=== PATIENT | male | born 1970 | race Two or more races ===

== ENCOUNTER 2018-04-10 16:19 | Inpatient (IN) | payer OTHER ==
[~2018-04-10] VITALS: Ht 172.7 cm; Wt 95.4 kg
[2018-04-10] MEDS ORDERED: VANCOMYCIN IV 1,000 MG in IV DEXTROSE 5% 250 ML IV ONE (18:00)
[2018-04-10] MEDS ORDERED: IV NORMAL SALINE 1000 ML BAG IV ONE (18:00)
[2018-04-10] MEDS ORDERED: PIPERACILLIN SODIUM/TAZOBACTAM 3.375 G in IV DEXTROSE 5% 50 ML IV ONE (18:00)
[2018-04-10 18:33] LABS: BASOPHILS % (AUTO) 0.2 % (0.0-2.0); EOSINOPHILS # (AUTO) 0.1 K/uL (0.0-0.7); EOSINOPHILS % (AUTO) 0.5 % (0.0-7.0); HEMATOCRIT 24.9 % (36.7-47.1); HEMOGLOBIN 8.5 g/dL (12.5-16.3); LYMPHOCYTES # (AUTO) 1.1 K/uL (20.0-40.0); LYMPHOCYTES % (AUTO) 7.5 % (20.5-51.5); MEAN CORPUSCULAR HGB CONC 34 g/dL (32.5-36.3); MEAN CORPUSCULAR VOLUME 85.3 fL (73.0-96.2); MONOCYTES % (AUTO) 6.9 % (0.0-11.0); NEUTROPHILS # (AUTO) 12.5 K/uL (1.8-8.9); NEUTROPHILS % (AUTO) 84.9 % (38.5-71.5); PLATELET COUNT (AUTO) 319 K/uL (152-348); RED BLOOD CELL COUNT(AUTO) 2.92 MIL/uL (4.06-5.63); WHITE BLOOD COUNT (AUTO) 14.7 K/uL (3.6-10.2)
[2018-04-10 18:58] LABS: CREATININE 2.1 mg/dL (0.6-1.3); POTASSIUM 4.3 mmol/L (3.5-5.1)
[2018-04-10 18:59] LABS: BILIRUBIN,DIRECT 0.1 mg/dL (0.0-0.2); BILIRUBIN,TOTAL 0.4 mg/dL (0.2-1.0)
[2018-04-10] MEDS ORDERED: INSULIN REGULAR, HUMAN 100 UNIT in IV NORMAL SALINE 100 ML IV ONE ×2 (19:15)
[2018-04-10] MEDS ORDERED: INSULIN REGULAR, HUMAN 300 UNIT/3 ML VIAL IV ONE (19:15)
[2018-04-10] MEDS ORDERED: PIPERACILLIN/TAZOBACTAM/D5W 50 ML IV ONE (19:22)
[2018-04-10] MEDS ORDERED: INSULIN REGULAR, HUMAN 300 UNIT/3 ML VIAL ONE (19:33)
[2018-04-10] MEDS ORDERED: VANCOMYCIN IV 200 ML ONE (20:22)
--- NOTE | 2018-04-10 21:03 | NUR ---
Re-checked sugar 158. D/C insulin drip per JEREMY PATINO.
--- NOTE | 2018-04-10 21:05 | NUR ---
Per CCU nurse, pt received order from Dr. Clyde Graham to Admit pt to Telemetry.
--- NOTE | 2018-04-10 21:53 | NUR ---
Pt. admitted to Telemetry, under care of Dr. Clyde Graham. Diagnosis: Uncontrolled Diabetes, Cellulitis Belongs List completed. MRSA swab done. Report given to floor nurse
--- NOTE | 2018-04-10 22:45 | NUR ---
[facility] UNDER THE CARE OF DR. GOLDSTEIN. DX:UNCONTROLLED DIABETES/CELLULITIS.TELEMETRY SHOWING SINUS RYTHYM.BELONGING LIST DONE. PT SHOWS NO SIGNS OF ACUTE DISTRESS.ADMISSION PROCESS AND CARE PLAN INITIATED. [facility] ASSESSMENT DONE. PT CONFUSE. CALL LIGHT WITHIN REACH. SAFETY AND COMFORT PROVIDED. WILL CONTINUE TO MONITOR.
[2018-04-10] MEDS ORDERED: ONDANSETRON 4 MG/2 ML VIAL IV PRN (23:30)
[2018-04-10] MEDS ORDERED: ACETAMINOPHEN 325 MG TABLET PO PRN (23:30)
[2018-04-10] MEDS ORDERED: DEXTROSE 50% 50 ML DISP.SYRIN IV PRN (23:30)
[2018-04-10] MEDS ORDERED: PIPERACILLIN/TAZOBACTAM/D5W 2.25 G in PREMIXED 1 EACH IV SCH (23:30)
[2018-04-10] MEDS ORDERED: HYDROCODONE/APAP 5-325MG TABLET PO PRN (23:30)
[2018-04-11] VITALS (7 sets, daily range): BP systolic 132–164; BP diastolic 64–88
[2018-04-11] MEDS: IV 1/2NS 1000 ML 1,000 ML IV PRN (00:03)
[2018-04-11] MEDS ORDERED: PIPERACILLIN/TAZOBACTAM/D5W 3.375 G in PREMIXED 1 EACH IV SCH (01:00)
[2018-04-11] MEDS ORDERED: PIPERACILLIN SODIUM/TAZO 3.375 GM VIAL ONE (01:35)
[2018-04-11] MEDS: ACIDOPHILUS/BULGARICUS CHEW TAB PO SCH ×3 (05:58→21:06)
--- NOTE | 2018-04-11 06:33 | NUR ---
PT SLEPT INTERMITTENTLY. PT SHOWS NO SIGNS OF ACUTE DISTRESS. IV INTACT AND PATENT. PRESCRIBED MEDICATION GIVEN AND PT TOLERATED IT WELL. PT GET OUT OF THE BED AND WANTS TO GO TO THE BATHROOM IMMEDIATELY ON HIS OWN BUT NEED ASSISTANCE. FALL RISK PREVENTION DONE. 1:1 SITTER NEEDED.PT WILL SCREAM AND TALK TO HIMSELF. PSYCH CONSULT NEEDED AND WILL ENDORSE TO DAYSHIFT NURSE. PT CONFUSE. CHARGE NURSE AWARE. SAFETY AND COMFORT PROVIDED. WILL ENDORSE TO INCOMING NURSE FOR CONTINUITY OF CARE.
[2018-04-11 06:36] LABS: BASOPHILS % (AUTO) 0.2 % (0.0-2.0); EOSINOPHILS # (AUTO) 0.1 K/uL (0.0-0.7); EOSINOPHILS % (AUTO) 1.1 % (0.0-7.0); HEMATOCRIT 25.1 % (36.7-47.1); HEMOGLOBIN 8.7 g/dL (12.5-16.3); LYMPHOCYTES # (AUTO) 1.5 K/uL (20.0-40.0); LYMPHOCYTES % (AUTO) 11.2 % (20.5-51.5); MEAN CORPUSCULAR HEMOGLOBIN 29.1 uug (23.8-33.4); MEAN CORPUSCULAR HGB CONC 35 g/dL (32.5-36.3); MEAN CORPUSCULAR VOLUME 83.8 fL (73.0-96.2); MONOCYTES # (AUTO) 1.2 K/uL (2.0-10.0); MONOCYTES % (AUTO) 9.2 % (0.0-11.0); NEUTROPHILS # (AUTO) 10.3 K/uL (1.8-8.9); NEUTROPHILS % (AUTO) 78.3 % (38.5-71.5); PLATELET COUNT (AUTO) 318 K/uL (152-348); RED BLOOD CELL COUNT(AUTO) 2.99 MIL/uL (4.06-5.63); WHITE BLOOD COUNT (AUTO) 13.1 K/uL (3.6-10.2)
[2018-04-11] MEDS: BLOOD SUGAR DIAGNOSTIC 1 EACH STRIP VI SCH ×4 (06:39→20:38)
[2018-04-11 06:48] LABS: BILIRUBIN,TOTAL 0.5 mg/dL (0.2-1.0); CREATININE 1.9 mg/dL (0.6-1.3); MAGNESIUM 1.4 mg/dL (1.8-2.4); PHOSPHOROUS 2.5 mg/dL (2.5-4.9); POTASSIUM 4.2 mmol/L (3.5-5.1); TOTAL PROTEIN, SERUM 5.9 g/dL (6.4-8.2)
[2018-04-11] MEDS: INSULIN REGULAR, HUMAN 300 UNIT/3 ML VIAL SQ PRN ×3 (07:46→16:22)
[2018-04-11] MEDS: GLIMEPIRIDE 2 MG TABLET PO SCH (08:01)
[2018-04-11] MEDS ORDERED: FAMOTIDINE 20 MG TABLET PO SCH ×2 (09:00)
[2018-04-11] MEDS ORDERED: PIPERACILLIN/TAZOBACTAM/D5W 2.25 G in PREMIXED 1 EACH IV SCH (09:00)
[2018-04-11] MEDS ORDERED: VANCOMYCIN IV 1,500 MG in IV DEXTROSE 5% 500 ML IV ONE (09:00)
--- NOTE | 2018-04-11 09:05 | NUR ---
PATIENT IS AWAKE CONFUSED AND DISORIENTED TALKING TO SELF AND TO THE WALL AND RESPONDING TO OTHERS THAT ARE NOT PRESENT BAT PERSON CLEMENTINE HIS PROVIDER NOTIFIED STATED THAT SHE WILL ORDER PSYCH CONSULT FOR HIM CALLED THE [facility] STATED THAT I SHOULD CALL DR MORIN MYSELF SO I PAGED HIM AWAITING FOR CALL BACK
--- NOTE | 2018-04-11 11:02 | NUR ---
PATIENT IS CONFUSED AND DISORIENTED AND UNABLE TO VERBALISE TO ME IF HE IS ON ANY HOME MEDICATIONS CHECKED THE PATIENTS CHART INCLUDING THE ED REPORT BUT NO PAPERS AND NO MENTION OF WHERE PATIENT CAME FROM SO I ASKED THE PROJECT DEVELOPMENT LEADER STATED THAT SHE DOES NOT KNOW EITHER BUT WILL TRY TO RESEARCH AND WILL NOTIFY ME WHEN SHE DOES.
--- NOTE | 2018-04-11 12:04 | NUR ---
NEW ORDER NOTED TO DISCONTINUE TELEMETRY AND NOTED
--- NOTE | 2018-04-11 12:29 | NUR ---
WOUND CARE CONSULT: PT PRESENTS WITH MOIST NECROTIC TISSUE TO FOOT, PRESENT ON ADMISSION. LEFT BELOW KNEE AMP STUMP NOTED. PT MOVES IN BED INDEPENDENTLY. PT CONTINENT AT THIS TIME. DPM HERE TO SEE PT. DEFER TO DPM. WILL SEE PRN. Addendum: 04/11/18 at 1230 by YOVANI KIM RN Amended: Links added.
[2018-04-11] MEDS: MAGNESIUM SULFATE/D5W 100 ML IV SCH ×2 (12:40→14:36)
--- NOTE | 2018-04-11 13:15 | NUR ---
Clinical Pharmacy Note: Vancomycin Dosing per Pharmacy Subjective: Vancomycin IV to start on this 47 yo male patient for cellulitis. Objective: BUN 29/Scr 1.9 WBC 13.1 Temperature 98 Vanco random level with am labs: 10.1 Assessment/Plan: Patient received vanco 1gm IVPB x1 on 04/10 at 2029 in ED. Since vanco random level is below 15 & srcr is still elevated, will give vanco 1500mg IVPB x1 today at 0900 & re-check vanco random level in am with am labs for further dosing. When srcr is stable will consider routine dosing. Will follow daily.
--- NOTE | 2018-04-11 13:28 | NUR ---
DR HARTMAN HERE TO SEE PATIENT AND WANTS TO DO DEBRIDEMENT ON THE RIGHT FOOT HE STATED THAT PATIENT IS ALERT AND TALKING TO HIM IN LITHUANIAN AND HE THINKS THAT THE PATIENT CAN SIGN OWN CONSCENT BUT GOLDIE SPRING HERE AND SHE SIGNED FOR HIM AND WITHNESSED BY ME PATIENT ALSO SIGNED HIS NAME AFTER DR HARTMAN SPOKE TO HIM. STATED WILL RETURN THIS AFTERNOON TO DO THE DEBRIDEMENT.
--- NOTE | 2018-04-11 14:04 | NUR ---
ASSIGNMENT REARRANGED REPORT RECEIVED FROM MACARENA RENEE THE CARE
--- NOTE | 2018-04-11 14:04 | NUR ---
ASSIGNMENT REARRANGED REPORT GIVEN TO THE NEXT RN FOR CONTINUING CARE AT THIS TIME.
[2018-04-11] MEDS: PIPERACILLIN/TAZOBACTAM/D5W 50 ML IV SCH ×2 (15:47→20:24)
--- NOTE | 2018-04-11 17:54 | NUR ---
END OF SHIFT PATIENT IS AWAKE CONFUSED AND DISORIENTED , LAUGHING TIMES TO TIME, COOPERATIVE WITH TREATMENT SAFETY REINFORCED, SITTER AT BEDSIDE
--- NOTE | 2018-04-11 19:20 | NUR ---
RECEIVED PT AWAKE , ALERT, AND ORIENTEDX2. PT SHOWS NO SIGNS OF ACUTE DISTRESS. IV INTACT AND INFUSING WELL. SITTER AT BEDSIDE FOR SAFETY. PT DISORIENTED. LAUGHING FROM TIME TO TIME AND TALKING TO HIMSELF.CALL LIGHT WITHIN REACH. BEDALARM ON. SAFETY AND COMFORT PROVIDED. WILL CONTINUE TO MONITOR.
[2018-04-11] MEDS: FAMOTIDINE 20 MG TABLET PO SCH (20:25)
[2018-04-11] MEDS: DOCUSATE SODIUM 100 MG CAPSULE PO SCH (20:25)
[2018-04-11] MEDS: INSULIN REGULAR, HUMAN 300 UNITS/3 ML VIAL SQ PRN (21:08)
[2018-04-11 22:44] LABS: *BILIRUBIN,URIN NEGATIVE (NEGATIVE); *BLOOD, URINE Trace-lysed (NEGATIVE); *CLARITY,URINE CLEAR (CLEAR); *COLOR,URINE YELLOW (YELLOW); *KETONES,URINE NEGATIVE (NEGATIVE); *UROBILINOGEN,URINE 0.2 E.U./dl (NORMAL); LEUKOCYTE ESTERASE ,URINE NEGATIVE (NEGATIVE); NITRITE, URINE NEGATIVE (NEGATIVE); PH,URINE 5.5 (5.0-8.0)
[2018-04-11 22:45] LABS: UGLUCOSE 2+ (NEGATIVE)
[2018-04-11 22:50] LABS: BACTERIA,URINE FEW /HPF (NONE SEEN); SQUAMOUS EPITHELIAL CELL,UR FEW /HPF (NONE SEEN); URINE AMORPHOUS URATE MODERATE /HPF; WBC,URINE 0-3 /HPF (0-3)
[2018-04-12 04:00] VITALS: BP 159/86
[2018-04-12] MEDS: IV 1/2NS 1000 ML 1,000 ML IV PRN (04:17)
[2018-04-12] MEDS: PIPERACILLIN/TAZOBACTAM/D5W 50 ML IV SCH ×4 (04:17→20:15)
[2018-04-12 05:25] VITALS: BP 139/88
[2018-04-12] MEDS: ACIDOPHILUS/BULGARICUS CHEW TAB PO SCH ×3 (05:36→21:48)
[2018-04-12] MEDS: BLOOD SUGAR DIAGNOSTIC 1 EACH STRIP VI SCH ×4 (06:38→20:21)
--- NOTE | 2018-04-12 06:39 | NUR ---
PT SLEPT INTERMITTENTLY. PT SHOWS NO SIGNS OF ACUTE DISTRESS. SITTER AT BEDSIDE FOR SAFETY. IV INTACT. PRESCRIBED MEDICATION GIVEN AND PT TOLERATED IT WELL. PT CONFUSED AND DISORIENTED. NEED REORIENTATION. CALL LIGHT WITHIN REACH. SAFETY AND COMFORT PROVIDED. ALL NEEDS ARE MET. WILL ENDORSE ACCORDINGLY TO INCOMING NURSE FOR CONTINUITY OF CARE.
[2018-04-12 07:45] VITALS: BP 180/91
[2018-04-12] MEDS: INSULIN REGULAR, HUMAN 300 UNIT/3 ML VIAL SQ PRN ×3 (07:55→17:01)
[2018-04-12 08:07] LABS: MAGNESIUM 1.9 mg/dL (1.8-2.4); POTASSIUM 4.2 mmol/L (3.5-5.1); VANCOMYCIN,RANDOM 14.8 ug/mL (18.0-26.0)
[2018-04-12] MEDS: GLIMEPIRIDE 2 MG TABLET PO SCH (08:29)
[2018-04-12] MEDS: FAMOTIDINE 20 MG TABLET PO SCH ×2 (08:30→20:15)
--- NOTE | 2018-04-12 09:28 | NUR ---
Clinical Pharmacy Note: Vancomycin Dosing per Pharmacy Subjective: Vancomycin IV to start on this 47 yo male patient for cellulitis. Objective: BUN 25/Scr 2.0 WBC 13.1 (2/) Temperature 98.1 Vanco random level with am labs: 14.8 Assessment/Plan: Since vanco random level is below 15 & srcr is still elevated, will give vanco 1500mg IVPB x1 today at 1100. Pharmacy shall review srcr in am & decide when to order next random level for further dosing. When srcr is stable will consider routine dosing. Will follow daily.
[2018-04-12] MEDS ORDERED: VANCOMYCIN IV 1,500 MG in IV DEXTROSE 5% 500 ML IV ONE (11:00)
[2018-04-12 12:00] VITALS: BP 185/90
--- NOTE | 2018-04-12 12:20 | NUR ---
CALLED PHARMACY TO CHECK COMPATIBILITY OF FLUIDS, CONFIRMED THAT ZOSYN AND VANCOMYCIN CANNOT BE RAN TOGETHER. ZOSYN WAS INFUSED, PER CHARGE NURSE GALO IT IS NOW OKAY TO RUN VANCOMYCIN THROUGH SAME LINE LONG NOT RUNNING TOGETHER. WILL STILL CONTINUE TO MONITOR.
[2018-04-12 16:00] VITALS: BP 180/90
--- NOTE | 2018-04-12 19:28 | NUR ---
PATIENT IS LAYING IN BED WITH SIDE RAILS PADDED FOR SAFETY, 1:1 SITTER AT BEDSIDE FOR SAFETY. PATIENT SEEMS TO BE FIGHTING INTERNAL STIMULI AND HAS MOMENTS WHERE HE KICKS UP AND TRIES TO GET OUT OF BED, ALSO SPEAKS TO HIMSELF. CLEMENTINE GONZALEZ NP MADE AWARE, DR MORIN IS ON THE CASE. MEDICATION ORDERS WILL BE PUT IN BY CLEMENTINE.
--- NOTE | 2018-04-12 19:30 | NUR ---
PATIENT CONFUSED/DISORIENTED, LAYING IN BED WITH SIDE RAILS PADDED FOR SAFETY. 1:1 SITTER AT BEDSIDE FOR SAFETY. PATIENT SEEMS TO BE FIGHTING INTERNAL STIMULI AND HAS MOMENTS WHERE HE KICKS HIS LEGS AND TRIES TO GET OUT OF BED, ALSO SPEAKS TO HIMSELF. WILL CONTINUE TO MONITOR,
[2018-04-12 20:00] VITALS: BP 165/93
[2018-04-12] MEDS: DOCUSATE SODIUM 100 MG CAPSULE PO SCH (20:15)
[2018-04-12] MEDS: QUETIAPINE FUMARATE 25 MG TABLET PO SCH (20:15)
[2018-04-12] MEDS: INSULIN REGULAR, HUMAN 300 UNITS/3 ML VIAL SQ PRN (20:25)
[2018-04-13] MEDS: BLOOD SUGAR DIAGNOSTIC 1 EACH STRIP VI SCH ×4 (06:34→20:20)
--- NOTE | 2018-04-13 06:43 | NUR ---
Patient slept throughout intermittently throughout the night. 1:1 sitter maintained for safety. Complaint with IV and PO medications. Padded side rails maintained. Call light and frequently used items within reach. Will continue to monitor.
[2018-04-13 06:49] LABS: CREATININE 1.8 mg/dL (0.6-1.3)
[2018-04-13] MEDS: ACIDOPHILUS/BULGARICUS CHEW TAB PO SCH ×2 (06:59→14:57)
[2018-04-13] MEDS: PIPERACILLIN/TAZOBACTAM/D5W 50 ML IV SCH ×4 (07:05→21:34)
--- NOTE | 2018-04-13 07:30 | NUR ---
Sleeping, appears comfortable. Sitter at bedside. IVF infusing.
[2018-04-13] MEDS ORDERED: IV D5/ 0.9% NACL 1,000 ML IV PRN (08:45)
[2018-04-13] MEDS ORDERED: QUETIAPINE FUMARATE 25 MG TABLET PO SCH (09:00)
[2018-04-13 09:18] LABS: BASOPHILS % (AUTO) 0.4 % (0.0-2.0); EOSINOPHILS # (AUTO) 0.3 K/uL (0.0-0.7); EOSINOPHILS % (AUTO) 3.6 % (0.0-7.0); HEMATOCRIT 21.1 % (36.7-47.1); LYMPHOCYTES # (AUTO) 1.7 K/uL (20.0-40.0); LYMPHOCYTES % (AUTO) 21.6 % (20.5-51.5); MEAN CORPUSCULAR HEMOGLOBIN 28.8 uug (23.8-33.4); MEAN CORPUSCULAR HGB CONC 35 g/dL (32.5-36.3); MEAN CORPUSCULAR VOLUME 82.9 fL (73.0-96.2); MONOCYTES # (AUTO) 0.8 K/uL (2.0-10.0); MONOCYTES % (AUTO) 9.9 % (0.0-11.0); NEUTROPHILS # (AUTO) 4.9 K/uL (1.8-8.9); NEUTROPHILS % (AUTO) 64.5 % (38.5-71.5); PLATELET COUNT (AUTO) 370 K/uL (152-348); RED BLOOD CELL COUNT(AUTO) 2.55 MIL/uL (4.06-5.63); WHITE BLOOD COUNT (AUTO) 7.7 K/uL (3.6-10.2)
[2018-04-13 09:19] LABS: HEMOGLOBIN 7.3 g/dL (12.5-16.3)
[2018-04-13] MEDS: FAMOTIDINE 20 MG TABLET PO SCH ×2 (10:05→20:09)
[2018-04-13] MEDS: GLIMEPIRIDE 2 MG TABLET PO SCH (10:05)
[2018-04-13 10:11] LABS: *OCCULT BLOOD STOOL NEGATIVE (NEGATIVE)
[2018-04-13 10:58] VITALS: BP 149/93
[2018-04-13] MEDS ORDERED: DEXT50DI8 IV (12:27)
[2018-04-13] MEDS ORDERED: DOCU100C36 PO (12:27)
[2018-04-13] MEDS ORDERED: SULF1TAB48 PO (12:27)
[2018-04-13] MEDS ORDERED: Blood Sugar Diagnostic VI (12:27)
[2018-04-13] MEDS ORDERED: FAMO20TA8 PO (12:27)
[2018-04-13] MEDS ORDERED: ACID1TAB4 PO (12:27)
[2018-04-13] MEDS ORDERED: INSU100V28 SQ ×2 (12:27)
[2018-04-13] MEDS ORDERED: QUET25TA PO ×2 (12:27)
[2018-04-13] MEDS ORDERED: GLIM2TAB PO (12:27)
[2018-04-13] MEDS: INSULIN REGULAR, HUMAN 300 UNIT/3 ML VIAL SQ PRN ×2 (12:33→17:17)
--- NOTE | 2018-04-13 15:00 | NUR ---
Wound care done to right foot. Kept clean and dry
[2018-04-13 15:07] VITALS: BP 140/86
--- NOTE | 2018-04-13 16:39 | NUR ---
Clinical Pharmacy Note: Vancomycin Dosing per Pharmacy Subjective: Vancomycin IV to continue on this 47 yo male patient for cellulitis. Objective: BUN 20/Scr 1.8 WBC 7.7 Temperature 98.4 Vanco random level with am labs: 17.6 Assessment/Plan: Since vanco random level is below 20 & srcr is still elevated, will give vanco 1500mg IVPB x1 today at 1730. Pharmacy shall review srcr in am & decide when to order next random level for further dosing. When srcr is stable will consider routine dosing. Will follow daily.
[2018-04-13] MEDS ORDERED: MUPI22OI2 NS (17:13)
[2018-04-13] MEDS ORDERED: PIPE3.379 IV (17:13)
[2018-04-13] MEDS ORDERED: VANC1PLA11 IV (17:13)
[2018-04-13] MEDS ORDERED: VANCOMYCIN IV 1,500 MG in IV NORMAL SALINE 500 ML IV ONE (17:30)
[2018-04-13] MEDS: MUPIROCIN 2% OINT 22 GM TUBE NS SCH ×2 (18:17→20:09)
--- NOTE | 2018-04-13 19:00 | NUR ---
With discharge order to SNF, arranged to [facility]. Report given to Alejandra. Ambulance arranged with [facility], spoke with Mike, they will call back for ETA. Endorsed for follow up.
[2018-04-13] MEDS: QUETIAPINE FUMARATE 25 MG TABLET PO SCH (20:08)
[2018-04-13] MEDS: DOCUSATE SODIUM 100 MG CAPSULE PO SCH (20:09)
[2018-04-13 20:15] VITALS: BP 168/93
--- NOTE | 2018-04-13 20:15 | NUR ---
PATIENT AWAKE IN BED WITH SITTER AT BEDSIDE FOR SAFETY. PATIENT IS A/O X2. LIBYAN SPEAKING ONLY. PATIENT IS BEING DISCHARGED TO [facility]. WAITING ON AMBULANCE PICK-UP. BP 168/93. ALL OTHER VS WNL. PATIENT DENIES PAIN OR DISCOMFORT. NO RESP. DISTRESS NOTED. ON RA SATING 98%. CALL LIGHT IN REACH. ALL NEEDS ATTENDED. WILL CONTINUE TO MONITOR AND ASSESS.
--- NOTE | 2018-04-13 20:20 | NUR ---
NOTIFIED DR. SCHWARTZ OF PATIENTS BLOOD PRESSURE. RECEIVED ORDER FOR ONE TIME CLONIDINE 0.1MG PO.
[2018-04-13] MEDS: INSULIN REGULAR, HUMAN 300 UNITS/3 ML VIAL SQ PRN (20:22)
[2018-04-13 20:24] VITALS: BP 168/93
--- NOTE | 2018-04-13 20:25 | NUR ---
PATIENT GIVEN CLONIDINE 0.1MG PO PRN ORDERED FOR BLOOD PRESSURE.
[2018-04-13] MEDS ORDERED: CLONIDINE HCL 0.1 MG TABLET PO ONE (20:30)
--- NOTE | 2018-04-13 21:45 | NUR ---
RECHECKED PATIENTS BLOOD PRESSURE 130/65. ALL OTHER VS WNL.
--- NOTE | 2018-04-13 22:25 | NUR ---
AMBULANCE TRANSPORT AT BEDSIDE TO PRIOR AUTHORIZATION TECHNICIAN PATIENT. PATIENT IS BEING DISCHARGED TO [facility]. VS WNL. DENIES PAIN OR DISCOMFORT. NO RESP. DISTRESS NOTED. PATIENT BEING DISCHARGED TO FACILITY WITH IV HEPLOCK. NOTED ON RIGHT FA #20 GAUGE, INTACT AND PATENT. PATIENT LEFT FACILITY IN STABLE CONDITION. ALL NEEDS ATTENDED.
== END 2018-04-13 22:25 | DRG 383 ==
LOC: EDBD 16:19 → ER 16:19 → TELE 22:03 → MED 04-11 11:58
PROVIDERS: ADMIT Internal Medicine; ATTEND Internal Medicine
PROC: 0JBQ0ZZ Excision of Right Foot Subcutaneous Tissue and Fascia, Open Approach (ICD-10-PCS; principal; 2018-04-11)
DX: L03.115 Cellulitis of right lower limb (principal); N17.0 Acute kidney failure with tubular necrosis; E43 Unspecified severe protein-calorie malnutrition; G93.41 Metabolic encephalopathy; E11.22 Type 2 diabetes mellitus with diabetic chronic kidney disease; E11.42 Type 2 diabetes mellitus with diabetic polyneuropathy; E86.9 Volume depletion, unspecified; E11.621 Type 2 diabetes mellitus with foot ulcer; L97.518 Non-pressure chronic ulcer of other part of right foot with other specified severity; E11.65 Type 2 diabetes mellitus with hyperglycemia; E11.52 Type 2 diabetes mellitus with diabetic peripheral angiopathy with gangrene; Z89.512 Acquired absence of left leg below knee; E66.9 Obesity, unspecified; Z68.32 Body mass index [BMI] 32.0-32.9, adult; Z71.3 Dietary counseling and surveillance; Z91.14 Patient's other noncompliance with medication regimen; F03.90 Unspecified dementia, unspecified severity, without behavioral disturbance, psychotic disturbance, mood disturbance, and anxiety; E78.5 Hyperlipidemia, unspecified; F99 Mental disorder, not otherwise specified; I12.9 Hypertensive chronic kidney disease with stage 1 through stage 4 chronic kidney disease, or unspecified chronic kidney disease; N18.9 Chronic kidney disease, unspecified; H54.7 Unspecified visual loss; Z22.322 Carrier or suspected carrier of Methicillin resistant Staphylococcus aureus
CPT/HCPCS: 36415; 70030-TC; 70450; 71045; 73630; 83550; 83605; 83735; 84100; 85025; 85730; 87040; 87070; 87077; 87086; 93005; A4217; A4663; G0378; J1815; J2543; J3370; J3475; J3490; J7030; J7040; J7060

== ENCOUNTER 2018-07-15 16:14 | Inpatient (IN) | payer OTHER ==
[~2018-07-15] VITALS: Ht 167.6 cm; Wt 77.1 kg
[~2018-07-15 16:14] MED LIST: ACID1TAB4 PO; Blood Sugar Diagnostic VI; DEXT50DI8 IV; DOCU100C36 PO; FAMO20TA8 PO; GLIM2TAB PO; INSU100V28 SQ; MUPI22OI2 NS; PIPE3.379 IV; QUET25TA PO; VANC1PLA11 IV
[2018-07-15 16:50] LABS: BASOPHILS % (AUTO) 0.3 % (0.0-2.0); EOSINOPHILS # (AUTO) 0.2 K/uL (0.0-0.7); EOSINOPHILS % (AUTO) 2.3 % (0.0-7.0); HEMATOCRIT 29.1 % (36.7-47.1); LYMPHOCYTES # (AUTO) 1.6 K/uL (20.0-40.0); LYMPHOCYTES % (AUTO) 24.5 % (20.5-51.5); MEAN CORPUSCULAR HEMOGLOBIN 28.1 uug (23.8-33.4); MEAN CORPUSCULAR HGB CONC 34 g/dL (32.5-36.3); MEAN CORPUSCULAR VOLUME 81.9 fL (73.0-96.2); MONOCYTES # (AUTO) 0.5 K/uL (2.0-10.0); MONOCYTES % (AUTO) 6.9 % (0.0-11.0); NEUTROPHILS # (AUTO) 4.4 K/uL (1.8-8.9); PLATELET COUNT (AUTO) 290 K/uL (152-348); RED BLOOD CELL COUNT(AUTO) 3.56 MIL/uL (4.06-5.63); WHITE BLOOD COUNT (AUTO) 6.7 K/uL (3.6-10.2)
[2018-07-15 16:58] LABS: CREATININE 3.1 mg/dL (0.6-1.3); POTASSIUM 4.8 mmol/L (3.5-5.1)
--- NOTE | 2018-07-15 17:00 | NUR ---
Patient at times screaming. Patient redirectable and cooperative
[2018-07-15 17:04] LABS: BILIRUBIN,DIRECT 0.1 mg/dL (0.0-0.2); BILIRUBIN,TOTAL 0.3 mg/dL (0.2-1.0); TOTAL PROTEIN, SERUM 5.6 g/dL (6.4-8.2)
--- NOTE | 2018-07-15 17:22 | NUR ---
PAGED [facility] FOR PANEL CALL - AWAITING CALLBACK. ATTEMPT 1.
[2018-07-15] MEDS ORDERED: ALLO100T PO (17:29)
[2018-07-15] MEDS ORDERED: LISI-603 PO (17:29)
[2018-07-15] MEDS ORDERED: TERA10CA4 PO (17:29)
[2018-07-15] MEDS ORDERED: SIMV20TA6 PO (17:31)
[2018-07-15] MEDS ORDERED: CETI5TAB6 PO (17:31)
[2018-07-15] MEDS ORDERED: TRAZ-182 PO (17:31)
[2018-07-15] MEDS ORDERED: MELO-105 PO (17:33)
[2018-07-15] MEDS ORDERED: ESCI5TAB10 PO (17:33)
[2018-07-15] MEDS ORDERED: GABA-532 PO (17:33)
--- NOTE | 2018-07-15 17:35 | NUR ---
ER SPEAKING W/ DR. PAOLA RIOS ON TELEPHONE RE PT'S ADMISSION.
[2018-07-15] MEDS ORDERED: MINE50OI TOP (17:38)
[2018-07-15] MEDS ORDERED: LIDO30AD10 TOP (17:38)
[2018-07-15] MEDS ORDERED: CLONIDINE HCL 0.1 MG TABLET PO ONE (18:15)
[2018-07-15] MEDS ORDERED: CLONIDINE HCL 0.1 MG TABLET ONE (18:15)
[2018-07-15] MEDS ORDERED: hydrALAZINE HCL 20 MG/1 ML VIAL ONE (18:45)
[2018-07-15] MEDS ORDERED: hydrALAZINE HCL 20 MG/1 ML VIAL IV ONE (19:00)
--- NOTE | 2018-07-15 19:40 | NUR ---
Transfer to 3rd floor via ammyrjared
--- NOTE | 2018-07-15 20:00 | NUR ---
RECEIVED PATIENT ON [place] FROM ER. PATIENT A/O X 1 AND COOPERATIVE. NO SIGNS OF ACUTE DISTRESS. COMFORT MEASURES PROVIDED. BED IN LOWEST POSITION. SIDE RAILS UP X2. BED ALARM ON.
[2018-07-15] MEDS ORDERED: DEXTROSE 50% 50 ML DISP.SYRIN IV PRN (20:45)
[2018-07-15 20:48] VITALS: BP 177/102
[2018-07-15] MEDS: SIMVASTATIN 20 MG TABLET PO SCH (21:44)
[2018-07-15] MEDS: TRAZODONE 50 MG TABLET PO SCH (21:44)
[2018-07-15] MEDS: ALLOPURINOL 100 MG TABLET PO SCH (21:44)
[2018-07-15] MEDS: LISINOPRIL 20 MG TABLET PO SCH (21:46)
[2018-07-15] MEDS: GABAPENTIN 100 MG CAPSULE PO SCH (21:53)
[2018-07-15] MEDS: BLOOD SUGAR DIAGNOSTIC 1 EACH STRIP VI SCH (21:56)
[2018-07-15] MEDS ORDERED: VANCOMYCIN IV 1,500 MG in IV DEXTROSE 5% 500 ML IV ONE (22:00)
[2018-07-15] MEDS: INSULIN REGULAR, HUMAN 300 UNIT/3 ML VIAL SQ PRN (22:01)
[2018-07-15 22:17] VITALS: BP 148/73
[2018-07-15] MEDS ORDERED: VANCOMYCIN HCL 500 MG VIAL ONE (22:33)
[2018-07-15] MEDS ORDERED: PIPERACILLIN/TAZOBACTAM/D5W 100 ML ONE (22:34)
[2018-07-15] MEDS: TERAZOSIN 5 MG CAPSULE PO SCH (22:39)
[2018-07-15] MEDS: PIPERACILLIN/TAZOBACTAM/D5W 2.25 G in PREMIXED 1 EACH IV SCH (22:41)
[2018-07-16] MEDS: PIPERACILLIN/TAZOBACTAM/D5W 2.25 G in PREMIXED 1 EACH IV SCH (03:58)
[2018-07-16 05:30] VITALS: BP 126/57
--- NOTE | 2018-07-16 05:57 | NUR ---
PATIENT SLEEPING INTERMITTENTLY. A/O X3 WITH S/S OF PSYCHOSIS. NO SIGNS OF ACUTE DISTRESS. COMFORT MEASURES PROVIDED. BED IN LOWEST POSITION. SIDE RAILS X2. WOUND CARE PROVIDED FOR RIGHT FOOT ULCER.
[2018-07-16 06:12] LABS: BASOPHILS % (AUTO) 0.2 % (0.0-2.0); EOSINOPHILS # (AUTO) 0.1 K/uL (0.0-0.7); EOSINOPHILS % (AUTO) 0.7 % (0.0-7.0); HEMATOCRIT 25.3 % (36.7-47.1); HEMOGLOBIN 8.7 g/dL (12.5-16.3); LYMPHOCYTES # (AUTO) 0.8 K/uL (20.0-40.0); LYMPHOCYTES % (AUTO) 6.6 % (20.5-51.5); MEAN CORPUSCULAR HEMOGLOBIN 28.1 uug (23.8-33.4); MEAN CORPUSCULAR HGB CONC 35 g/dL (32.5-36.3); MEAN CORPUSCULAR VOLUME 81.3 fL (73.0-96.2); MONOCYTES # (AUTO) 0.9 K/uL (2.0-10.0); MONOCYTES % (AUTO) 7.1 % (0.0-11.0); NEUTROPHILS # (AUTO) 10.7 K/uL (1.8-8.9); NEUTROPHILS % (AUTO) 85.4 % (38.5-71.5); PLATELET COUNT (AUTO) 267 K/uL (152-348); RED BLOOD CELL COUNT(AUTO) 3.11 MIL/uL (4.06-5.63); WHITE BLOOD COUNT (AUTO) 12.5 K/uL (3.6-10.2)
[2018-07-16 06:35] LABS: CREATININE 3.5 mg/dL (0.6-1.3); POTASSIUM 4.3 mmol/L (3.5-5.1)
[2018-07-16] MEDS: BLOOD SUGAR DIAGNOSTIC 1 EACH STRIP VI SCH ×4 (06:44→20:41)
[2018-07-16] MEDS ORDERED: MINERAL OIL/PETROLATUM,WHITE 57 GM TUBE TOP PRN (07:30)
[2018-07-16] MEDS: INSULIN REGULAR, HUMAN 300 UNIT/3 ML VIAL SQ PRN ×4 (08:30→20:43)
[2018-07-16] MEDS: GABAPENTIN 100 MG CAPSULE PO SCH ×3 (08:30→16:38)
[2018-07-16] MEDS: ESCITALOPRAM OXALATE 10 MG TABLET PO SCH (08:30)
[2018-07-16] MEDS ORDERED: LIDOCAINE 5% PATCH TD SCH (09:00)
[2018-07-16] MEDS ORDERED: [UNRECOGNIZED DRUG - OTHER] TOP SCH (09:00)
[2018-07-16] MEDS ORDERED: CETIRIZINE HCL 10 MG TABLET PO SCH (09:00)
[2018-07-16] MEDS ORDERED: MELOXICAM 7.5 MG TABLET PO SCH (09:00)
[2018-07-16] MEDS ORDERED: PIPERACILLIN/TAZOBACTAM/D5W 50 ML IV SCH (09:00)
[2018-07-16] MEDS: PIPERACILLIN/TAZOBACTAM/D5W 3.375 G in PREMIXED 1 EACH IV SCH ×2 (10:54→16:34)
[2018-07-16 11:27] VITALS: BP 110/58
--- NOTE | 2018-07-16 12:00 | NUR ---
Wound dressing changed. Cleansed with NS applied adaptic then covered with Kerlix. Sloughing noted on wound. Awaiting wound care consult. No odor noted. Drained serous sanguanous drainage. Call light is with within reach.
--- NOTE | 2018-07-16 12:07 | NUR ---
Clinical Pharmacy Note: Vancomycin Pharmacy to Dose Subjective: To start vancomycin in this 47 y/o male for indication of "suspected infection" (diabetic foot ulcer). Objective: weight 77kg height 167cm BUN/SCr 44/3.5 (ARF) wbc 12.5 temp 97.9 vanco 1500mg x 1 dosed 07/15 @2200 random pending today at 1400 Assessment/Plan As renal function is reduced, will dose per level for now. Random level due today at 1400. Will check level at that time and re-dose as needed. Will follow Addendum: 07/16/18 at 1450 by LEONIDES JACOBO ADM RANDOM 17.9, WILL DOSE ANOTHER 1250MG X 1 DUE TONIGHT AT 2100. WILL CHECK SCR IN AM AND ORDER NEXT RANDOM ACCORDINGLY. WILL FOLLOW
[2018-07-16] MEDS ORDERED: CALC-343 PO (15:37)
[2018-07-16] MEDS ORDERED: MULT1TAB73 PO (15:37)
[2018-07-16] MEDS ORDERED: INSU100V28 (15:37)
[2018-07-16] MEDS ORDERED: GLIM1TAB3 PO (15:37)
[2018-07-16] MEDS ORDERED: FERR325T28 PO (15:37)
[2018-07-16] MEDS ORDERED: ASCO-375 PO (15:37)
[2018-07-16] MEDS ORDERED: POLY15DR27 OP (15:37)
[2018-07-16] MEDS ORDERED: QUET25TA PO (15:37)
[2018-07-16] MEDS ORDERED: DOCU100C36 PO (15:37)
[2018-07-16] MEDS ORDERED: FAMO20TA8 PO (15:37)
[2018-07-16] MEDS ORDERED: INSULIN REGULAR, HUMAN 300 UNIT/3 ML VIAL SQ PRN (15:45)
[2018-07-16] MEDS ORDERED: DEXTROSE 50% 50 ML DISP.SYRIN IV PRN (15:45)
[2018-07-16 16:07] VITALS: BP 118/64
[2018-07-16] MEDS ORDERED: BLOOD SUGAR DIAGNOSTIC 1 EACH STRIP VI SCH (16:30)
--- NOTE | 2018-07-16 19:44 | NUR ---
Received patient awake in bed, not in any form of distress. Noted with 2 IV accesses on the left arm, to saline lock. No complaints at the moment. Patient able to answer questions but has some episodes of talking to self. Bed in low position, locked, side rails up x 2, call light within reach. Bed alarm on for safety. Will continue to monitor.
[2018-07-16 20:28] VITALS: BP 123/60
[2018-07-16] MEDS: ALLOPURINOL 100 MG TABLET PO SCH (20:35)
[2018-07-16] MEDS: TRAZODONE 50 MG TABLET PO SCH (20:35)
[2018-07-16] MEDS: LISINOPRIL 20 MG TABLET PO SCH (20:35)
[2018-07-16] MEDS: DOCUSATE SODIUM 100 MG CAPSULE PO SCH (20:35)
[2018-07-16] MEDS: ASCORBIC ACID 500 MG TABLET PO SCH (20:35)
[2018-07-16] MEDS: SIMVASTATIN 20 MG TABLET PO SCH (20:35)
[2018-07-16] MEDS: CALCIUM CARBONATE 500 MG TABLET PO SCH (20:36)
[2018-07-16] MEDS: QUETIAPINE FUMARATE 25 MG TABLET PO SCH (21:00)
[2018-07-16] MEDS ORDERED: VANCOMYCIN IV 1,250 MG in IV DEXTROSE 5% 500 ML IV ONE (21:00)
[2018-07-16] MEDS ORDERED: FAMOTIDINE 20 MG TABLET PO SCH (21:00)
[2018-07-16] MEDS: TERAZOSIN 5 MG CAPSULE PO SCH (21:30)
[2018-07-17] MEDS: PIPERACILLIN/TAZOBACTAM/D5W 3.375 G in PREMIXED 1 EACH IV SCH ×4 (00:07→22:10)
--- NOTE | 2018-07-17 05:44 | NUR ---
Patient slept intermittently throughout the night. No distress noted. Patient had episodes of talking to self and was saying to leave him alone in bahraini. Ensured safety and comfort. Attended all needs.
[2018-07-17 05:58] VITALS: BP 115/69
[2018-07-17] MEDS: BLOOD SUGAR DIAGNOSTIC 1 EACH STRIP VI SCH ×4 (06:42→22:24)
[2018-07-17 06:57] LABS: BASOPHILS % (AUTO) 0.2 % (0.0-2.0); EOSINOPHILS # (AUTO) 0.1 K/uL (0.0-0.7); HEMATOCRIT 23.4 % (36.7-47.1); HEMOGLOBIN 8.1 g/dL (12.5-16.3); LYMPHOCYTES % (AUTO) 9.8 % (20.5-51.5); MEAN CORPUSCULAR HEMOGLOBIN 28.3 uug (23.8-33.4); MEAN CORPUSCULAR HGB CONC 35 g/dL (32.5-36.3); MEAN CORPUSCULAR VOLUME 82.1 fL (73.0-96.2); NEUTROPHILS # (AUTO) 8.5 K/uL (1.8-8.9); PLATELET COUNT (AUTO) 266 K/uL (152-348); RED BLOOD CELL COUNT(AUTO) 2.86 MIL/uL (4.06-5.63); WHITE BLOOD COUNT (AUTO) 10.7 K/uL (3.6-10.2)
--- NOTE | 2018-07-17 07:26 | NUR ---
Seroquel 25mg was not given on 07/16/182099. Will continue to monitor pt.
[2018-07-17 07:31] LABS: IRON, SERUM 15 ug/dL (50-175)
[2018-07-17 07:37] LABS: FERRITIN 108 ng/mL (26-388)
[2018-07-17] MEDS: GLIMEPIRIDE 2 MG TABLET PO SCH (08:43)
[2018-07-17] MEDS: ESCITALOPRAM OXALATE 10 MG TABLET PO SCH (08:45)
[2018-07-17] MEDS: MULTIVIT, IRON, MIN NO. 8, FA TABLET PO SCH (08:45)
[2018-07-17] MEDS: CALCIUM CARBONATE 500 MG TABLET PO SCH ×2 (08:45→20:43)
[2018-07-17] MEDS: ASCORBIC ACID 500 MG TABLET PO SCH ×2 (08:45→20:43)
[2018-07-17] MEDS: FAMOTIDINE 20 MG TABLET PO SCH (08:45)
[2018-07-17] MEDS: FERROUS SULFATE 325 MG TABEC PO SCH (08:45)
[2018-07-17] MEDS: QUETIAPINE FUMARATE 25 MG TABLET PO SCH ×2 (08:45→20:43)
[2018-07-17] MEDS: GABAPENTIN 100 MG CAPSULE PO SCH ×3 (08:46→17:20)
[2018-07-17] MEDS: CETIRIZINE HCL 10 MG TABLET PO SCH (08:48)
[2018-07-17] MEDS ORDERED: LIDOCAINE 5% PATCH TD SCH (09:00)
[2018-07-17] MEDS ORDERED: LIDOCAINE 5% PATCH TD PRN (09:00)
--- NOTE | 2018-07-17 09:36 | NUR ---
Clinical Pharmacy Note: Vancomycin Pharmacy to Dose Subjective: To continue vancomycin in this 47 y/o male for indication of "suspected infection" (diabetic foot ulcer). Objective: weight 77kg height 167cm BUN/SCr 44/3.5 (ARF-ON 07/16) wbc 10.7 temp 98 random pending today at 1800 Assessment/Plan As renal function is reduced, will continue to dose per level for now. Patient received vanco 1250 mg IVPB x1 last night at 2100. Random level due today at 1800. Will check level at that time and re-dose as needed. Will follow Addendum: 07/17/18 at 1908 by ANGELINA HARRIS VANCO random level 25.3; will hold dose for tonight; re-ordered another level for tomorrow @ 0900 am . will follow up
[2018-07-17] MEDS: INSULIN REGULAR, HUMAN 300 UNIT/3 ML VIAL SQ PRN ×4 (10:22→22:26)
[2018-07-17 12:00] VITALS: BP 125/63
[2018-07-17] MEDS ORDERED: Z GUARD REMEDY PASTE 57 GM TUBE TOP PRN (15:00)
--- NOTE | 2018-07-17 15:04 | NUR ---
WOUND CARE CONSULT: PT FOLLOWED BY DR KELSEY IN PAST FOR WOUND DEBRIDEMENT RT FOOT. DR KELSEY NOTIFIED OF NEW DPM CONSULT. DEFER TO DPM FOR RT LOWER EXTREMITY. LEFT BELOW KNEE AMPUTATION STUMP NOTED. WILL SEE PRN. SKIN PROTECTION RECOMMENDATIONS DISCUSSED WITH NURSING STAFF. WILL SEE PRN.
[2018-07-17 16:00] VITALS: BP 130/79
--- NOTE | 2018-07-17 16:14 | NUR ---
REVIEWED ALL ASPECTS OF CONSENT FOR RIGHT FOOT WOUND DEBRIDEMENT WITH MD AND NURSES. PT CONSENTS TO THE PROCEDURE. CONSENT SIGNED BY TWO RNS.
--- NOTE | 2018-07-17 18:56 | NUR ---
PT IS RESTING IN BED, HAD A WOUND DEBRIDEMENT WITH DR. TRIPATHI AND A CT OF THE RIGHT LOWER EXTREMITY. PT WAS UNABLE TO SIGN CONSENT ON THE CORRECT SPOT BECAUSE PT IS BLIND BUT HAS VERBALIZED THAT HE AGREES TO THE PROCEDURE. TWO NURSES SIGNED THE CONSENT ALONG WITH THE DOCTOR. CONTINUE TO MONITOR PT.
--- NOTE | 2018-07-17 19:00 | NUR ---
PATIENT ALERT NO SOB NO CHEST PAIN, R FOOT DRESSING INTACT, PATIENT HAS NO COMPLAIN OF PAIN AT THIS TIME. NO S/S OF HYPO/HYPERGLYCEMIA NOTED. CALL LIGHT WITHIN REACH.
[2018-07-17 20:00] VITALS: BP 130/66
[2018-07-17] MEDS: DOCUSATE SODIUM 100 MG CAPSULE PO SCH (20:42)
[2018-07-17] MEDS: TERAZOSIN 5 MG CAPSULE PO SCH (20:43)
[2018-07-17] MEDS: ALLOPURINOL 100 MG TABLET PO SCH (20:43)
[2018-07-17] MEDS: LISINOPRIL 20 MG TABLET PO SCH (20:43)
[2018-07-17] MEDS: SIMVASTATIN 20 MG TABLET PO SCH (20:44)
[2018-07-17] MEDS: TRAZODONE 50 MG TABLET PO SCH (20:44)
[2018-07-17] MEDS: Z GUARD REMEDY PASTE 57 GM TUBE TOP SCH (22:10)
[2018-07-18] MEDS: PIPERACILLIN/TAZOBACTAM/D5W 3.375 G in PREMIXED 1 EACH IV SCH ×2 (05:13→17:20)
[2018-07-18 06:11] VITALS: BP 130/62
[2018-07-18] MEDS: BLOOD SUGAR DIAGNOSTIC 1 EACH STRIP VI SCH ×4 (06:38→20:34)
[2018-07-18 06:46] LABS: EOSINOPHILS # (AUTO) 0.2 K/uL (0.0-0.7); LYMPHOCYTES # (AUTO) 1.6 K/uL (20.0-40.0); NEUTROPHILS # (AUTO) 5.2 K/uL (1.8-8.9)
--- NOTE | 2018-07-18 06:57 | NUR ---
PATIENT SLEPT MOST OF THE NIGHT, NO SOB NO CHEST PAIN, NO COMPLAIN OF PAIN AT THIS TIME. R FOOT DRESSING INTACT, CONT TO MONITOR.
[2018-07-18 07:02] LABS: BASOPHILS % (AUTO) 0.3 % (0.0-2.0); BILIRUBIN,TOTAL 0.3 mg/dL (0.2-1.0); CREATININE 5.8 mg/dL (0.6-1.3); LYMPHOCYTES % (AUTO) 20.4 % (20.5-51.5); MAGNESIUM 2.1 mg/dL (1.8-2.4); MEAN CORPUSCULAR HEMOGLOBIN 28.5 uug (23.8-33.4); MEAN CORPUSCULAR HGB CONC 35 g/dL (32.5-36.3); MEAN CORPUSCULAR VOLUME 82.6 fL (73.0-96.2); MONOCYTES # (AUTO) 0.8 K/uL (2.0-10.0); MONOCYTES % (AUTO) 10.1 % (0.0-11.0); NEUTROPHILS % (AUTO) 67.2 % (38.5-71.5); PHOSPHOROUS 5.8 mg/dL (2.5-4.9); PLATELET COUNT (AUTO) 258 K/uL (152-348); POTASSIUM 4.9 mmol/L (3.5-5.1); TOTAL PROTEIN, SERUM 5.5 g/dL (6.4-8.2)
[2018-07-18 07:05] LABS: WHITE BLOOD COUNT (AUTO) 7.7 K/uL (3.6-10.2)
--- NOTE | 2018-07-18 07:06 | NUR ---
LAB REPORT HGH 7.4, HCT 21.[address] LICEA. Addendum: 07/18/18 at 0735 by TARA MILLARD RN lab resport hgt 7.4, hct 21.5 left a message to dr. licea charting in error.
[2018-07-18 07:10] LABS: HEMATOCRIT 21.5 % (36.7-47.1); HEMOGLOBIN 7.4 g/dL (12.5-16.3)
--- NOTE | 2018-07-18 07:32 | NUR ---
Place a call to Dr. Manjula Barbosa, Dr Mauro was national sales manager left a message regarding h & H results. endorsed to next shift.
[2018-07-18] MEDS: Z GUARD REMEDY PASTE 57 GM TUBE TOP SCH ×2 (08:02→20:39)
[2018-07-18] MEDS: FAMOTIDINE 20 MG TABLET PO SCH ×2 (08:03→17:07)
[2018-07-18] MEDS: GABAPENTIN 100 MG CAPSULE PO SCH ×3 (08:03→17:06)
[2018-07-18] MEDS: GLIMEPIRIDE 2 MG TABLET PO SCH (08:03)
[2018-07-18] MEDS: CETIRIZINE HCL 10 MG TABLET PO SCH (08:03)
[2018-07-18] MEDS: ASCORBIC ACID 500 MG TABLET PO SCH ×2 (08:03→20:37)
[2018-07-18] MEDS: CALCIUM CARBONATE 500 MG TABLET PO SCH (08:03)
[2018-07-18] MEDS: FERROUS SULFATE 325 MG TABEC PO SCH (08:03)
[2018-07-18] MEDS: ESCITALOPRAM OXALATE 10 MG TABLET PO SCH (08:03)
[2018-07-18] MEDS: QUETIAPINE FUMARATE 25 MG TABLET PO SCH ×2 (08:03→20:36)
[2018-07-18] MEDS: MULTIVIT, IRON, MIN NO. 8, FA TABLET PO SCH (08:03)
[2018-07-18] MEDS ORDERED: CETIRIZINE HCL 10 MG TABLET PO SCH (09:00)
--- NOTE | 2018-07-18 10:40 | NUR ---
Clinical Pharmacy Note: Vancomycin Pharmacy to Dose Subjective: To continue vancomycin in this 47 y/o male for indication of "suspected infection" (diabetic foot ulcer). Objective: weight 77kg height 167cm BUN/SCr 44/3.5 (ARF-ON 07/16) wbc 10.7 temp 98 Vanco random level : 25.3 on 07/17 at 1800 Vanco random level: 21.9 on 07/18 at 0900 Assessment/Plan As renal function is reduced, will continue to dose per level for now. Patient received vanco 1250 mg IVPB x1 on 07/16 at 2100. Random level due tomorrow at 0600. Will check level at that time and re-dose as needed. Will follow
[2018-07-18] MEDS: IV NS 1000 ML 1,000 ML IV PRN (11:13)
[2018-07-18 12:00] VITALS: BP 148/79
--- NOTE | 2018-07-18 12:25 | NUR ---
Did not have to do a straight cath, offered pt a urinal and voided. Urine specimen sent to lab as ordered. will cont to monitor.
[2018-07-18 12:39] LABS: *BILIRUBIN,URIN NEGATIVE (NEGATIVE); *CLARITY,URINE SLIGHTLY CLOUDY (CLEAR); *COLOR,URINE YELLOW (YELLOW); *KETONES,URINE NEGATIVE (NEGATIVE); *UROBILINOGEN,URINE 0.2 E.U./dl (NORMAL); LEUKOCYTE ESTERASE ,URINE NEGATIVE (NEGATIVE); NITRITE, URINE NEGATIVE (NEGATIVE); PH,URINE 5.5 (5.0-8.0); UGLUCOSE TRACE (NEGATIVE)
[2018-07-18 12:55] LABS: *CREATININE,URINE 92.2 mg/dL (30-125); *URINE TOTAL PROTEIN RANDOM 424.6 mg/dL (<150/24HR)
[2018-07-18 13:29] LABS: *BLOOD, URINE TRACE (NEGATIVE)
[2018-07-18 13:33] LABS: BACTERIA,URINE NONE SEEN /HPF (NONE SEEN); WBC,URINE 0-3 /HPF (0-3)
[2018-07-18 13:35] LABS: SQUAMOUS EPITHELIAL CELL,UR FEW /HPF (NONE SEEN); URINE AMORPHOUS URATE MODERATE /HPF
[2018-07-18 13:36] LABS: MUCUS,URINE MODERATE /LPF (0-FEW); SPERM,URINE PRESENT /HPF (NONE SEEN)
[2018-07-18 15:25] VITALS: BP 158/85
--- NOTE | 2018-07-18 19:02 | NUR ---
PT EATING WELL. NO C/O PAIN. VOIDING WELL. RIGHT FOOT DRESSING CHANGED. WILL CONT TO MONITOR.
--- NOTE | 2018-07-18 19:26 | NUR ---
RECEIVED PT ALERT, AWAKE, AND ORIENTEDX2. PT SHOWS NO SIGNS OF ACUTE DISTRESS. PT IV INTACT. SAFETY AND COMFORT PROVIDED. WILL CONTINUE TO MONITOR.
[2018-07-18] MEDS: INSULIN REGULAR, HUMAN 300 UNIT/3 ML VIAL SQ PRN (20:35)
[2018-07-18] MEDS: TERAZOSIN 5 MG CAPSULE PO SCH (20:36)
[2018-07-18] MEDS: SIMVASTATIN 20 MG TABLET PO SCH (20:36)
[2018-07-18] MEDS: CULTURELLE CAPSULE PO SCH (20:36)
[2018-07-18] MEDS: TRAZODONE 50 MG TABLET PO SCH (20:36)
[2018-07-18] MEDS: DOCUSATE SODIUM 100 MG CAPSULE PO SCH (20:37)
[2018-07-18] MEDS: ALLOPURINOL 100 MG TABLET PO SCH (20:37)
[2018-07-18 21:32] VITALS: BP 172/92
[2018-07-19] MEDS: IV NS 1000 ML 1,000 ML IV PRN ×2 (04:02→16:19)
[2018-07-19] MEDS: PIPERACILLIN/TAZOBACTAM/D5W 3.375 G in PREMIXED 1 EACH IV SCH ×2 (05:14→20:19)
--- NOTE | 2018-07-19 06:00 | NUR ---
WOUND CARE DONE. PT STABLE. PT KEEPS ON ASKING FOR WATER AND FOOD. WILL CONTINUE TO MONITOR.
[2018-07-19 06:07] VITALS: BP 147/73
--- NOTE | 2018-07-19 06:36 | NUR ---
PT HAVE EPISODES OF HALLUCINATION. PT NEEDS REORIENTATION. PT SHOWS NO SIGNS OF ACUTE DISTRESS. PRESCRIBED MEDICATION GIVEN AND PT TOLERATED IT WELL SAFETY AND COMFORT PROVIDED.ALL NEEDS ARE MET. WILL ENDORSE ACCORDINGLY TO INCOMING NURSE FOR CONTINUITY OF CARE.
[2018-07-19 06:41] LABS: BASOPHILS % (AUTO) 0.3 % (0.0-2.0); EOSINOPHILS # (AUTO) 0.2 K/uL (0.0-0.7); EOSINOPHILS % (AUTO) 2.2 % (0.0-7.0); HEMATOCRIT 21.4 % (36.7-47.1); LYMPHOCYTES # (AUTO) 1.5 K/uL (20.0-40.0); LYMPHOCYTES % (AUTO) 18.9 % (20.5-51.5); MEAN CORPUSCULAR HGB CONC 34 g/dL (32.5-36.3); MEAN CORPUSCULAR VOLUME 82.2 fL (73.0-96.2); MONOCYTES # (AUTO) 0.7 K/uL (2.0-10.0); MONOCYTES % (AUTO) 8.8 % (0.0-11.0); NEUTROPHILS # (AUTO) 5.5 K/uL (1.8-8.9); NEUTROPHILS % (AUTO) 69.8 % (38.5-71.5); PLATELET COUNT (AUTO) 279 K/uL (152-348); WHITE BLOOD COUNT (AUTO) 7.9 K/uL (3.6-10.2)
[2018-07-19] MEDS: BLOOD SUGAR DIAGNOSTIC 1 EACH STRIP VI SCH ×4 (06:43→21:58)
[2018-07-19 06:49] LABS: HEMOGLOBIN 7.3 g/dL (12.5-16.3)
[2018-07-19 06:54] LABS: BILIRUBIN,TOTAL 0.4 mg/dL (0.2-1.0); CREATININE 5.5 mg/dL (0.6-1.3); MAGNESIUM 1.8 mg/dL (1.8-2.4); PHOSPHOROUS 4.7 mg/dL (2.5-4.9); POTASSIUM 4.5 mmol/L (3.5-5.1); TOTAL PROTEIN, SERUM 5.8 g/dL (6.4-8.2)
[2018-07-19] MEDS: CULTURELLE CAPSULE PO SCH ×2 (08:24→21:55)
[2018-07-19] MEDS: FAMOTIDINE 20 MG TABLET PO SCH ×2 (08:25→17:03)
[2018-07-19] MEDS: GLIMEPIRIDE 2 MG TABLET PO SCH (08:25)
[2018-07-19] MEDS: QUETIAPINE FUMARATE 25 MG TABLET PO SCH ×2 (08:25→21:56)
[2018-07-19] MEDS: MULTIVIT, IRON, MIN NO. 8, FA TABLET PO SCH (08:25)
[2018-07-19] MEDS: FERROUS SULFATE 325 MG TABEC PO SCH (08:25)
[2018-07-19] MEDS: ESCITALOPRAM OXALATE 10 MG TABLET PO SCH (08:25)
[2018-07-19] MEDS: GABAPENTIN 100 MG CAPSULE PO SCH ×3 (08:25→17:03)
[2018-07-19] MEDS: ASCORBIC ACID 500 MG TABLET PO SCH ×2 (08:26→21:57)
[2018-07-19] MEDS: Z GUARD REMEDY PASTE 57 GM TUBE TOP SCH ×2 (08:26→21:58)
[2018-07-19 11:24] VITALS: BP 153/83
--- NOTE | 2018-07-19 12:00 | NUR ---
wound doctor came in this afternoon to examine wound. dressing changed by doctor. wound sample taken to pharmacy
[2018-07-19 16:13] VITALS: BP 169/86
[2018-07-19] MEDS: INSULIN REGULAR, HUMAN 300 UNIT/3 ML VIAL SQ PRN ×2 (17:15→21:46)
[2018-07-19] MEDS ORDERED: EPOETIN ALFA 20,000 UNIT/ML ML SQ ONE (18:00)
[2018-07-19] MEDS: SOD FERRIC GLUC COMPLX/SUCROSE 125 MG in IV NORMAL SALINE 100 ML IV SCH (18:17)
--- NOTE | 2018-07-19 18:55 | NUR ---
Pt. Alert oriented x2, in no pain or discomfort, pt. rambles and became irritable with IV lines and attempted to take out IV lines. I changed IV lines because they were hanging on ground and tape was old and hanging off. Instructed pt. not to take out IV lines and to call nurse if he needs anything and to not get out of bed. Blood sugar taken at 1140 121 mg/dl with no insulin given. Blood sugar taken at 1800 157 mg/dl with 2 units of insulin given. Pt.'s hemoglobin is low, is aware and added Ferrchayait and procrit to med list.
[2018-07-19 20:00] VITALS: BP 173/90
--- NOTE | 2018-07-19 20:00 | NUR ---
RECEIVED PATIENT AWAKE AND ALERT X2 IN BED, RESTING COMFORTABLY. NO COMPLAINTS OF PAIN OR ACUTE DISTRESS VERBALIZED. ALL FALL AND SAFETY PRECAUTIONS IN PLACE. BED IN LOWEST POSITION WITH BRAKE APPLIED. 2 SIDE RAILS ARE UP AND LOCKED. BED EXIT IS ON. IV SITE ON LEFT HAND IS PATENT AND INTACT. VS WNL AND PATIENT IS STABLE. CALL SEVILLA AND PERSONAL ITEMS WITHIN REACH AT ALL TIMES. WILL CONTINUE TO MONITOR.
[2018-07-19] MEDS: DOCUSATE SODIUM 100 MG CAPSULE PO SCH (21:55)
[2018-07-19] MEDS: TERAZOSIN 5 MG CAPSULE PO SCH (21:56)
[2018-07-19] MEDS: TRAZODONE 50 MG TABLET PO SCH (21:56)
[2018-07-19] MEDS: ALLOPURINOL 100 MG TABLET PO SCH (21:57)
[2018-07-19] MEDS: SIMVASTATIN 20 MG TABLET PO SCH (21:57)
--- NOTE | 2018-07-20 05:00 | NUR ---
PATIENT SLEPT THROUGHOUT NIGHT. PRESCRIBED ANTIBIOTICS PROVIDED ORDERED AND TOLERATED WELL. ALL SAFETY AND FALL PRECAUTION MEASURES IN PLACE. BED IN LOWEST POSITION WITH BRAKE APPLIED. 2 SIDE RAILS UP AND IN LOCKED POSITION. BED EXIT ACTIVATED. VS WNL AND PATIENT IS STABLE. IV SITE PATENT AND INTACT. CALL SEVILLA AND PERSONAL ITEMS WITHIN REACH AT ALL TIMES.
[2018-07-20 05:01] VITALS: BP 136/76
[2018-07-20] MEDS: PIPERACILLIN/TAZOBACTAM/D5W 3.375 G in PREMIXED 1 EACH IV SCH ×2 (05:13→17:24)
[2018-07-20] MEDS: BLOOD SUGAR DIAGNOSTIC 1 EACH STRIP VI SCH ×4 (05:29→20:47)
[2018-07-20 07:31] LABS: EOSINOPHILS # (AUTO) 0.2 K/uL (0.0-0.7); LYMPHOCYTES # (AUTO) 1.4 K/uL (20.0-40.0); MONOCYTES # (AUTO) 0.7 K/uL (2.0-10.0); NEUTROPHILS # (AUTO) 3.5 K/uL (1.8-8.9); PLATELET COUNT (AUTO) 279 K/uL (152-348); WHITE BLOOD COUNT (AUTO) 5.8 K/uL (3.6-10.2)
[2018-07-20 07:36] LABS: BASOPHILS % (AUTO) 0.4 % (0.0-2.0); EOSINOPHILS % (AUTO) 3.2 % (0.0-7.0); LYMPHOCYTES % (AUTO) 23.7 % (20.5-51.5); MEAN CORPUSCULAR HEMOGLOBIN 28.6 uug (23.8-33.4); MEAN CORPUSCULAR HGB CONC 35 g/dL (32.5-36.3); MEAN CORPUSCULAR VOLUME 82.4 fL (73.0-96.2); MONOCYTES % (AUTO) 11.8 % (0.0-11.0); NEUTROPHILS % (AUTO) 60.9 % (38.5-71.5); RED BLOOD CELL COUNT(AUTO) 2.52 MIL/uL (4.06-5.63)
[2018-07-20 07:47] LABS: CREATININE 5.3 mg/dL (0.6-1.3); PHOSPHOROUS 5.1 mg/dL (2.5-4.9)
[2018-07-20 07:50] LABS: HEMOGLOBIN 7.2 g/dL (12.5-16.3)
--- NOTE | 2018-07-20 07:51 | NUR ---
Patient resting comfortably in bed at this time. No signs of distress. Stable condition. Possible D/C today back to [facility] assisted living. IVF running. ABX running at this time. will continue to monitor throughout shift.
[2018-07-20 07:53] LABS: HEMATOCRIT 20.8 % (36.7-47.1)
[2018-07-20] MEDS: CULTURELLE CAPSULE PO SCH ×2 (09:50→20:31)
[2018-07-20] MEDS: ESCITALOPRAM OXALATE 10 MG TABLET PO SCH (09:50)
[2018-07-20] MEDS: GLIMEPIRIDE 2 MG TABLET PO SCH (09:51)
[2018-07-20] MEDS: ASCORBIC ACID 500 MG TABLET PO SCH ×2 (09:51→20:31)
[2018-07-20] MEDS: Z GUARD REMEDY PASTE 57 GM TUBE TOP SCH ×2 (09:51→20:32)
[2018-07-20] MEDS: MULTIVIT, IRON, MIN NO. 8, FA TABLET PO SCH (09:51)
[2018-07-20] MEDS: GABAPENTIN 100 MG CAPSULE PO SCH ×3 (09:51→16:14)
[2018-07-20] MEDS: FAMOTIDINE 20 MG TABLET PO SCH ×2 (09:51→16:14)
[2018-07-20] MEDS: FERROUS SULFATE 325 MG TABEC PO SCH (09:51)
[2018-07-20] MEDS: QUETIAPINE FUMARATE 25 MG TABLET PO SCH ×2 (09:51→20:30)
[2018-07-20 11:49] VITALS: BP 141/83
[2018-07-20] MEDS: INSULIN REGULAR, HUMAN 300 UNIT/3 ML VIAL SQ PRN (12:13)
--- NOTE | 2018-07-20 12:30 | NUR ---
patient woke up at this time. Routine morning medications administered. patient complied with medication regime at this time. no signs of agitation. patient is confused but is not combative or aggressive. Stable condition at this time. No signs of distress. will continue to monitor until end of shift. Addendum: 07/20/18 at 1443 by SHYANN CHIN RN PLEASE DISREGARD, INCORRECT PATIENT
--- NOTE | 2018-07-20 14:45 | NUR ---
ordered to have 1 unit of PRBC to be transfused. Consent form signed by patient. awaiting type and screen.
[2018-07-20] MEDS: IV NS 1000 ML 1,000 ML IV PRN (17:19)
[2018-07-20] MEDS: SOD FERRIC GLUC COMPLX/SUCROSE 125 MG in IV NORMAL SALINE 100 ML IV SCH (17:44)
--- NOTE | 2018-07-20 18:57 | NUR ---
Ferrlicit running at this time in one IV-line and Zosyn extended interval running in a separate IV-line. Patient resting comfortably in bed at this time. No signs of distress. Wound care provided right patient's right foot. stable condition at this time. safety measures implemented. bed alarm on.
--- NOTE | 2018-07-20 19:30 | NUR ---
Received patient awake in bed, not in any form of distress. Noted with 2 IV accesses on the left arm, to saline lock. No complaints at the moment. Patient able to answer questions but has some episodes of talking to self. Noted patient is for blood transfusion tonight. Still with dressing on the right foot, dry, clean an intact. Bed in low position, locked, side rails up x 2, call light within reach. Bed alarm on for safety. Will continue to monitor.
--- NOTE | 2018-07-20 20:00 | NUR ---
Noted Dr. Mayes's order for blood transfusion since patient's hemoglobin is 7.2mg/dl. Noted also plans for discharge for the patient.
[2018-07-20] MEDS: TERAZOSIN 5 MG CAPSULE PO SCH (20:31)
[2018-07-20] MEDS: DOCUSATE SODIUM 100 MG CAPSULE PO SCH (20:31)
[2018-07-20] MEDS: TRAZODONE 50 MG TABLET PO SCH (20:31)
[2018-07-20] MEDS: ALLOPURINOL 100 MG TABLET PO SCH (20:31)
[2018-07-20] MEDS: SIMVASTATIN 20 MG TABLET PO SCH (20:31)
[2018-07-20 20:32] VITALS: BP 168/83
[2018-07-20 23:15] VITALS: BP 156/91
--- NOTE | 2018-07-20 23:15 | NUR ---
Started blood transfusion of 1 unit PRBC as ordered, noted patient's vital signs are stable prior to start of blood transfusion.
[2018-07-20 23:30] VITALS: BP_SYST 162; BP_SYST 175; BP_DIAS 86; BP_DIAS 98
[2018-07-21] VITALS (8 sets, daily range): BP systolic 152–187; BP diastolic 78–96
--- NOTE | 2018-07-21 | NUR ---
Noted blood pressure elevated, called and spoke with Dr. Manjula Barbosa who ordered Clonidine 0.1mg tablet every 4 hours prn for SBP>160 - noted and ordered.
[2018-07-21] MEDS: CLONIDINE HCL 0.1 MG TABLET PO PRN ×2 (00:22→19:18)
--- NOTE | 2018-07-21 05:42 | NUR ---
Patient slept intermittently throughout the shift. Noted s/p blood transfusion, no adverse reaction noted. Ensured safety and comfort. Attended all needs. Noted for possible discharge this morning back to [facility].
[2018-07-21] MEDS: PIPERACILLIN/TAZOBACTAM/D5W 3.375 G in PREMIXED 1 EACH IV SCH ×2 (06:16→18:00)
[2018-07-21] MEDS: BLOOD SUGAR DIAGNOSTIC 1 EACH STRIP VI SCH ×4 (06:30→20:48)
[2018-07-21 07:22] LABS: BASOPHILS % (AUTO) 0.4 % (0.0-2.0); EOSINOPHILS # (AUTO) 0.2 K/uL (0.0-0.7); EOSINOPHILS % (AUTO) 3.5 % (0.0-7.0); LYMPHOCYTES # (AUTO) 1.5 K/uL (20.0-40.0); LYMPHOCYTES % (AUTO) 23.5 % (20.5-51.5); MEAN CORPUSCULAR HEMOGLOBIN 28.2 uug (23.8-33.4); MEAN CORPUSCULAR HGB CONC 34 g/dL (32.5-36.3); MEAN CORPUSCULAR VOLUME 82.9 fL (73.0-96.2); MONOCYTES # (AUTO) 0.8 K/uL (2.0-10.0); MONOCYTES % (AUTO) 12.9 % (0.0-11.0); NEUTROPHILS # (AUTO) 3.8 K/uL (1.8-8.9); NEUTROPHILS % (AUTO) 59.7 % (38.5-71.5); PLATELET COUNT (AUTO) 290 K/uL (152-348); RED BLOOD CELL COUNT(AUTO) 2.92 MIL/uL (4.06-5.63); WHITE BLOOD COUNT (AUTO) 6.4 K/uL (3.6-10.2)
[2018-07-21 07:25] LABS: BILIRUBIN,TOTAL 0.3 mg/dL (0.2-1.0); MAGNESIUM 2.2 mg/dL (1.8-2.4); PHOSPHOROUS 4.7 mg/dL (2.5-4.9); POTASSIUM 4.8 mmol/L (3.5-5.1); TOTAL PROTEIN, SERUM 6.1 g/dL (6.4-8.2)
--- NOTE | 2018-07-21 08:00 | NUR ---
awake alert. blind both eyes. assisted pt. fed self . ate well. mrsa wound right foot. staff here for i/d consult. with order of .vanco meds. need vanco random first. pt. talking to self at times.voided on the bed. keep dry/clean.iv cont.to rt. forearm.left nares with slight bleeding.close monitoring.
[2018-07-21 08:10] LABS: HEMATOCRIT 24.2 % (36.7-47.1); HEMOGLOBIN 8.2 g/dL (12.5-16.3)
[2018-07-21] MEDS: FERROUS SULFATE 325 MG TABEC PO SCH (09:17)
[2018-07-21] MEDS: CULTURELLE CAPSULE PO SCH ×2 (09:17→20:01)
[2018-07-21] MEDS: GLIMEPIRIDE 2 MG TABLET PO SCH (09:17)
[2018-07-21] MEDS: ESCITALOPRAM OXALATE 10 MG TABLET PO SCH (09:18)
[2018-07-21] MEDS: FAMOTIDINE 20 MG TABLET PO SCH ×2 (09:19→16:47)
[2018-07-21] MEDS: MULTIVIT, IRON, MIN NO. 8, FA TABLET PO SCH (09:21)
[2018-07-21] MEDS: ASCORBIC ACID 500 MG TABLET PO SCH ×2 (09:21→20:00)
[2018-07-21] MEDS: QUETIAPINE FUMARATE 25 MG TABLET PO SCH ×2 (09:21→20:00)
[2018-07-21] MEDS: GABAPENTIN 100 MG CAPSULE PO SCH ×3 (09:22→16:47)
[2018-07-21] MEDS: Z GUARD REMEDY PASTE 57 GM TUBE TOP SCH ×2 (09:50→21:41)
[2018-07-21] MEDS: INSULIN REGULAR, HUMAN 300 UNIT/3 ML VIAL SQ PRN ×2 (12:00→17:06)
--- NOTE | 2018-07-21 17:33 | NUR ---
CLINICAL PHARMACY NOTE:VANCOMYCIN Request for vancomycin dosing on 47y/o male 167.64CM 77.11KG for diabetic foot ulcer temp 98.4f BUN 44 Scr 5.0 WBC 6.4 also on Zosyn Patient was on vancomycin last dose 07/16 rossy random level today 7.7. give vancomycin 1250mg ivpb x 1 tonight. Will dose by levels due to poor renal function
[2018-07-21] MEDS: SOD FERRIC GLUC COMPLX/SUCROSE 125 MG in IV NORMAL SALINE 100 ML IV SCH (17:47)
--- NOTE | 2018-07-21 19:30 | NUR ---
PATIENT RECEIVED LYING IN BED. A/OX3 AND CONFUSED DUE TO PSYCHOSIS. SAFETY MEASRURES AND COMFORT MEASURES PROVIDED. BED IN LOWEST POSITION. SIDE RAILS UP X2. BED ALARM ARM ON. CALL LIGHT WITHIN REACH.
[2018-07-21] MEDS: ALLOPURINOL 100 MG TABLET PO SCH (20:00)
[2018-07-21] MEDS: DOCUSATE SODIUM 100 MG CAPSULE PO SCH (20:00)
[2018-07-21] MEDS: SIMVASTATIN 20 MG TABLET PO SCH (20:01)
[2018-07-21] MEDS: TRAZODONE 50 MG TABLET PO SCH (20:01)
[2018-07-21] MEDS: TERAZOSIN 5 MG CAPSULE PO SCH (20:01)
[2018-07-21] MEDS ORDERED: VANCOMYCIN IV 1,250 MG in IV DEXTROSE 5% 500 ML IV ONE (22:00)
--- NOTE | 2018-07-21 22:15 | NUR ---
Patient agitated, talking to himself and hitting himself. Reorientation done but patient kept hitting himself still, no prn meds ordered for agitation. Called Dr. Mauro for medication orders, he ordered to give Seroquel 25mg po x 1 - ordered and given to patient.
[2018-07-21] MEDS ORDERED: QUETIAPINE FUMARATE 25 MG TABLET PO ONE (23:00)
[2018-07-21] MEDS ORDERED: LORAZEPAM 2 MG/1 ML VIAL IV ONE (23:45)
--- NOTE | 2018-07-21 23:45 | NUR ---
Noted patient still agitated and hitting himself, called Dr. Mauro again for medication orders. Dr. Mauro ordered to give patient Ativan 0.5mg IV x 1 - ordered and given to patient.
[2018-07-22] MEDS: IV NS 1000 ML 1,000 ML IV PRN ×2 (03:28→18:29)
[2018-07-22 04:00] VITALS: BP 131/55
--- NOTE | 2018-07-22 05:48 | NUR ---
PATIENT INTERMITTENTLY SLEEPING I. SAFETY AND COMFORT MEASURES PROVIDED. BED RAILS X2, BED IN LOWEST POSITION, BED ALARM ON, CALL LIGHT WITHIN REACH.
[2018-07-22] MEDS: PIPERACILLIN/TAZOBACTAM/D5W 3.375 G in PREMIXED 1 EACH IV SCH ×2 (06:19→18:28)
[2018-07-22] MEDS: BLOOD SUGAR DIAGNOSTIC 1 EACH STRIP VI SCH ×4 (06:28→21:22)
[2018-07-22 06:39] LABS: BASOPHILS % (AUTO) 0.5 % (0.0-2.0); EOSINOPHILS # (AUTO) 0.3 K/uL (0.0-0.7); EOSINOPHILS % (AUTO) 3.7 % (0.0-7.0); HEMATOCRIT 23.4 % (36.7-47.1); LYMPHOCYTES # (AUTO) 1.6 K/uL (20.0-40.0); LYMPHOCYTES % (AUTO) 23.2 % (20.5-51.5); MAGNESIUM 1.7 mg/dL (1.8-2.4); MEAN CORPUSCULAR HEMOGLOBIN 28.3 uug (23.8-33.4); MEAN CORPUSCULAR HGB CONC 34 g/dL (32.5-36.3); MEAN CORPUSCULAR VOLUME 83.1 fL (73.0-96.2); MONOCYTES # (AUTO) 0.9 K/uL (2.0-10.0); MONOCYTES % (AUTO) 12.5 % (0.0-11.0); NEUTROPHILS # (AUTO) 4.2 K/uL (1.8-8.9); NEUTROPHILS % (AUTO) 60.1 % (38.5-71.5); PHOSPHOROUS 4.8 mg/dL (2.5-4.9); PLATELET COUNT (AUTO) 323 K/uL (152-348); POTASSIUM 4.7 mmol/L (3.5-5.1); RED BLOOD CELL COUNT(AUTO) 2.82 MIL/uL (4.06-5.63); WHITE BLOOD COUNT (AUTO) 6.9 K/uL (3.6-10.2)
[2018-07-22 07:12] LABS: *OCCULT BLOOD STOOL NEGATIVE (NEGATIVE)
[2018-07-22] MEDS: FERROUS SULFATE 325 MG TABEC PO SCH (09:35)
[2018-07-22] MEDS: MULTIVIT, IRON, MIN NO. 8, FA TABLET PO SCH (09:35)
[2018-07-22] MEDS: ASCORBIC ACID 500 MG TABLET PO SCH ×2 (09:35→21:21)
[2018-07-22] MEDS: QUETIAPINE FUMARATE 25 MG TABLET PO SCH ×2 (09:35→21:21)
[2018-07-22] MEDS: CULTURELLE CAPSULE PO SCH ×2 (09:35→21:21)
[2018-07-22] MEDS: FAMOTIDINE 20 MG TABLET PO SCH ×2 (09:36→17:19)
[2018-07-22] MEDS: GLIMEPIRIDE 2 MG TABLET PO SCH (09:36)
[2018-07-22] MEDS: ESCITALOPRAM OXALATE 10 MG TABLET PO SCH (09:37)
[2018-07-22] MEDS: GABAPENTIN 100 MG CAPSULE PO SCH ×3 (09:37→17:31)
[2018-07-22] MEDS: Z GUARD REMEDY PASTE 57 GM TUBE TOP SCH ×2 (09:46→21:22)
--- NOTE | 2018-07-22 10:47 | NUR ---
CLINICAL PHARMACY NOTE:VANCOMYCIN S: To continue vancomycin dosing on 47y/o male patient for diabetic foot ulcer O: temp 98.1f BUN 38 Scr 5.0 (ARF) WBC 6.9 ht 167.6 cm wt 77 kg Plan Patient got vancomycin 1250mg ivpb x 1 on 07/21 at 2350. No dose due today. Will dose by levels due to poor renal function. Plan to check vanco random level with am lab tomorrow. Pharmacy will dose further if needed.
[2018-07-22 11:10] VITALS: BP 158/87
--- NOTE | 2018-07-22 11:30 | NUR ---
-Pt on Vit C 500mg BID; considering ongoing high BUN and Cr, recommend reduce Vitamin C to qd. -Po intake good at this time, continues CCHO diet -Impaired skin integrity, continues MVI with mineral qday, ZnSO4 220mg qday x14 days -BG reasonable controlled, continues regimen and POC Monitor: -po intake, skin, labs (renal labs), BG Addendum: 07/22/18 at [address] Amended: Links added.
[2018-07-22 15:36] VITALS: BP 161/84
[2018-07-22] MEDS: INSULIN REGULAR, HUMAN 300 UNIT/3 ML VIAL SQ PRN ×2 (17:22→21:29)
[2018-07-22] MEDS: SOD FERRIC GLUC COMPLX/SUCROSE 125 MG in IV NORMAL SALINE 100 ML IV SCH (18:28)
--- NOTE | 2018-07-22 19:30 | NUR ---
PATIENT RECEIVED LYING IN BED. A/OX 3 WITH CONFUSION DUE TO PSYCHOSIS. COMFORT MEASURES AND SAFETY MEASURES PROVIDED. BED IN LOWEST POSITION. SIDE RAILS UP X2. BED ALARM WITHIN REACH. WOUND INTACT.
[2018-07-22 20:22] VITALS: BP 130/56
[2018-07-22] MEDS: ALLOPURINOL 100 MG TABLET PO SCH (21:21)
[2018-07-22] MEDS: TERAZOSIN 5 MG CAPSULE PO SCH (21:21)
[2018-07-22] MEDS: TRAZODONE 50 MG TABLET PO SCH (21:21)
[2018-07-22] MEDS: DOCUSATE SODIUM 100 MG CAPSULE PO SCH (21:22)
[2018-07-22] MEDS: SIMVASTATIN 20 MG TABLET PO SCH (21:22)
[2018-07-22] MEDS ORDERED: LORAZEPAM 2 MG/1 ML VIAL IV PRN (23:45)
--- NOTE | 2018-07-23 01:30 | NUR ---
Patient is agitated. Screaming and cussing in Turkish. Informed MD. New order for Ativan 0.5 mg given. Will continue to monitor.
--- NOTE | 2018-07-23 02:00 | NUR ---
Patient is calm at the moment. Will continue to monitor.
[2018-07-23] MEDS: PIPERACILLIN/TAZOBACTAM/D5W 3.375 G in PREMIXED 1 EACH IV SCH ×2 (05:50→17:34)
--- NOTE | 2018-07-23 06:09 | NUR ---
PATIENT SLEEPING INTERMITTENTLY. A/O X 3 WITH CONFUSION DUE TO PSYCHOSIS. COMFORT AND SAFETY MEASURES PROVIDED. BED IN LOWEST POSITION, SIDE RAILS UP X2 AND CALL LIGHT WITHIN REACH.
[2018-07-23 06:25] VITALS: BP 132/77
[2018-07-23] MEDS: BLOOD SUGAR DIAGNOSTIC 1 EACH STRIP VI SCH ×4 (06:40→20:39)
--- NOTE | 2018-07-23 06:52 | NUR ---
WOUND CARE PROVIDED. DRESSING CHANGE DONE. TOLERATED WELL.
[2018-07-23 07:06] LABS: BASOPHILS % (AUTO) 0.4 % (0.0-2.0); EOSINOPHILS # (AUTO) 0.2 K/uL (0.0-0.7); HEMOGLOBIN 7.9 g/dL (12.5-16.3); LYMPHOCYTES # (AUTO) 1.6 K/uL (20.0-40.0); LYMPHOCYTES % (AUTO) 22.3 % (20.5-51.5); MEAN CORPUSCULAR HEMOGLOBIN 28.7 uug (23.8-33.4); MEAN CORPUSCULAR HGB CONC 34 g/dL (32.5-36.3); MEAN CORPUSCULAR VOLUME 83.4 fL (73.0-96.2); MONOCYTES # (AUTO) 0.8 K/uL (2.0-10.0); NEUTROPHILS # (AUTO) 4.5 K/uL (1.8-8.9); NEUTROPHILS % (AUTO) 63.3 % (38.5-71.5); PLATELET COUNT (AUTO) 302 K/uL (152-348); RED BLOOD CELL COUNT(AUTO) 2.76 MIL/uL (4.06-5.63); WHITE BLOOD COUNT (AUTO) 7.1 K/uL (3.6-10.2)
[2018-07-23 07:16] LABS: BILIRUBIN,TOTAL 0.3 mg/dL (0.2-1.0); CREATININE 4.7 mg/dL (0.6-1.3); PHOSPHOROUS 4.6 mg/dL (2.5-4.9); POTASSIUM 4.4 mmol/L (3.5-5.1); TOTAL PROTEIN, SERUM 5.9 g/dL (6.4-8.2)
[2018-07-23 07:30] LABS: MAGNESIUM 1.8 mg/dL (1.8-2.4)
[2018-07-23 08:00] VITALS: BP 182/99
[2018-07-23] MEDS ORDERED: VANCOMYCIN IV 1,250 MG in IV DEXTROSE 5% 500 ML IV ONE (09:00)
[2018-07-23] MEDS: CULTURELLE CAPSULE PO SCH ×2 (10:09→20:34)
[2018-07-23] MEDS: FERROUS SULFATE 325 MG TABEC PO SCH (10:10)
[2018-07-23] MEDS: QUETIAPINE FUMARATE 25 MG TABLET PO SCH ×3 (10:10→20:34)
[2018-07-23] MEDS: MULTIVIT, IRON, MIN NO. 8, FA TABLET PO SCH (10:10)
[2018-07-23] MEDS: GABAPENTIN 100 MG CAPSULE PO SCH ×3 (10:10→17:34)
[2018-07-23] MEDS: ASCORBIC ACID 500 MG TABLET PO SCH ×2 (10:11→20:34)
[2018-07-23] MEDS: Z GUARD REMEDY PASTE 57 GM TUBE TOP SCH ×2 (10:12→21:20)
[2018-07-23] MEDS: GLIMEPIRIDE 2 MG TABLET PO SCH (10:18)
[2018-07-23] MEDS: FAMOTIDINE 20 MG TABLET PO SCH ×2 (10:18→17:42)
[2018-07-23] MEDS: ESCITALOPRAM OXALATE 10 MG TABLET PO SCH (10:19)
[2018-07-23 11:10] VITALS: BP 188/100
--- NOTE | 2018-07-23 11:11 | NUR ---
CLINICAL PHARMACY NOTE:VANCOMYCIN S: To continue vancomycin dosing on 47y/o male patient for diabetic foot ulcer O: temp 98f BUN 35 Scr 4.7 (ARF) WBC 7.1 Vanco random level: 15.6 (on 07/23 with am labs- post vancomycin 1250mg ivpb x 1 on 07/21 at 2350 ) ht 167.6 cm wt 77 kg Plan Will continue to dose by levels due to poor renal function. Since vanco random level this am is 15.6, will give vanco 1250 mg IVPB x1 today at 0900. Pharmacy shall review renal function in am & decide when to order next random level for further dosing. Will continue to follow
[2018-07-23] MEDS: busPIRone 5 MG TABLET PO SCH ×2 (13:46→20:34)
[2018-07-23] MEDS: INSULIN REGULAR, HUMAN 300 UNIT/3 ML VIAL SQ PRN (17:02)
[2018-07-23 18:07] VITALS: BP 193/102
[2018-07-23] MEDS: CLONIDINE HCL 0.1 MG TABLET PO PRN (18:22)
[2018-07-23] MEDS: SOD FERRIC GLUC COMPLX/SUCROSE 125 MG in IV NORMAL SALINE 100 ML IV SCH (18:36)
--- NOTE | 2018-07-23 19:30 | NUR ---
PATIENT RECEIVED LYING IN BED. A/OX3 AND CONFUSED DUE TO PSYCHOSIS. COMFORT MEASURES AND SAFETY MEASURES PROVIDED. BED IN LOWEST POSITION, BED ALARM ON AND SIDE RAILS X2.
[2018-07-23 20:28] VITALS: BP 140/62
[2018-07-23] MEDS: TERAZOSIN 5 MG CAPSULE PO SCH (20:33)
[2018-07-23] MEDS: SIMVASTATIN 20 MG TABLET PO SCH (20:34)
[2018-07-23] MEDS: ALLOPURINOL 100 MG TABLET PO SCH (20:34)
[2018-07-23] MEDS: DOCUSATE SODIUM 100 MG CAPSULE PO SCH (20:34)
[2018-07-23] MEDS: TRAZODONE 50 MG TABLET PO SCH (21:20)
[2018-07-23] MEDS ORDERED: LORAZEPAM 2 MG/1 ML VIAL IV PRN (23:30)
[2018-07-24] MEDS ORDERED: LORAZEPAM 2 MG/1 ML VIAL IV PRN ×2 (00:45→23:45)
--- NOTE | 2018-07-24 01:05 | NUR ---
Patient was agitated. Screaming and flailing arms in the air. MD notified. Ordered 0.5 mg Ativan ONCE. Entered the wrong ordered (Ativan 0.5 mg Q6H PRN). Called after hours pharmacy to try and rectify the order. Herbert advise to just put "non admin" and "put a comment that it was given" and finally DC the extra order of ONCE Ativan 0.5. Discussed with WAYNE Root charge nurse Bernice.
[2018-07-24] MEDS: IV NS 1000 ML 1,000 ML IV PRN ×2 (02:59→19:04)
[2018-07-24 04:39] LABS: *OCCULT BLOOD STOOL POSITIVE (NEGATIVE)
[2018-07-24] MEDS: PIPERACILLIN/TAZOBACTAM/D5W 3.375 G in PREMIXED 1 EACH IV SCH ×2 (05:04→17:10)
[2018-07-24 05:23] VITALS: BP 133/62
--- NOTE | 2018-07-24 06:06 | NUR ---
PATIENT INTERMITTENTLY SLEEPING. A/O X4. COMFORT MEASURES AND SAFETY MEASURES PROVIDED. BED IN LOWEST POSITION, SIDE RAILS UP X2, AND CALL LIGHT WITHIN REACH. NO SIGNS OF ACUTE DISTRESS. Addendum: 07/24/18 at 0626 by NATACHA GREGG RN A/O X3 AND CONFUSED DUE TO PSYCHOSIS.
[2018-07-24] MEDS: BLOOD SUGAR DIAGNOSTIC 1 EACH STRIP VI SCH ×4 (06:42→21:13)
[2018-07-24] MEDS: INSULIN REGULAR, HUMAN 300 UNIT/3 ML VIAL SQ PRN ×3 (08:05→21:18)
[2018-07-24] MEDS: ASCORBIC ACID 500 MG TABLET PO SCH ×2 (08:06→20:55)
[2018-07-24] MEDS: GLIMEPIRIDE 2 MG TABLET PO SCH (08:06)
[2018-07-24] MEDS: GABAPENTIN 100 MG CAPSULE PO SCH ×3 (08:07→16:33)
[2018-07-24] MEDS: busPIRone 5 MG TABLET PO SCH ×3 (08:07→20:54)
[2018-07-24] MEDS: ESCITALOPRAM OXALATE 10 MG TABLET PO SCH (08:07)
[2018-07-24] MEDS: CULTURELLE CAPSULE PO SCH ×2 (08:07→20:54)
[2018-07-24] MEDS: MULTIVIT, IRON, MIN NO. 8, FA TABLET PO SCH (08:07)
[2018-07-24] MEDS: FERROUS SULFATE 325 MG TABEC PO SCH (08:07)
[2018-07-24] MEDS: QUETIAPINE FUMARATE 25 MG TABLET PO SCH ×3 (08:07→20:54)
[2018-07-24] MEDS: Z GUARD REMEDY PASTE 57 GM TUBE TOP SCH ×2 (08:08→20:55)
[2018-07-24] MEDS: FAMOTIDINE 20 MG TABLET PO SCH ×2 (08:08→16:33)
[2018-07-24 08:38] LABS: CREATININE 4.7 mg/dL (0.6-1.3); POTASSIUM 4.3 mmol/L (3.5-5.1)
--- NOTE | 2018-07-24 09:30 | NUR ---
ALERT TO SELF COMPLIANT WITH MEDICATIONS WITH CONFUSSION AND DISORIENTATION AT THIS TIME REMAIN ON IVF ORDERED WITH NO S/S OF INFILTERATION ON SITE RIGHT FOOT WITH DRESSING DRY AND INTACT NO S/S OF HYPO/HYPERGLYCEMIC REACTIONS AT THIS TIME MADE COMFORTABLE WILL CONTINUE TO OBSERVE.
--- NOTE | 2018-07-24 11:08 | NUR ---
CLINICAL PHARMACY NOTE:VANCOMYCIN S: To continue vancomycin dosing on 47y/o male patient for diabetic foot ulcer O: temp 98.4f BUN 33 Scr 4.7 (ARF) WBC 7.1 (07/23) Vanco random level: 15.6 (on 07/23 with am labs- post vancomycin 1250mg ivpb x 1 on 07/21 at 2350 ) ht 167.6 cm wt 77 kg Plan Will continue to dose by levels due to poor renal function. Last dose of vanco 1250 mg IVPB x1 given 07/23 at 0900. No dose for today as renal function remains poor and likely has not cleared dose. Will check renal function tomorrow am and decide when to order next random. Will follow
[2018-07-24] MEDS: CLONIDINE HCL 0.1 MG TABLET PO PRN ×2 (12:54→22:05)
--- NOTE | 2018-07-24 14:30 | NUR ---
[facility] INFECTIOUS DISEASE PRACTITIONER STATED THAT PATIENT SHOULD NOT BE ON ISOLATION SINCE IT WAS ONLY STAFF AUREUS NOT METHICILLIN RESISTANT AND NOTED.
--- NOTE | 2018-07-24 15:00 | NUR ---
PATIENT IS VERY CONFUSED AND DISORIENTED TALKING TO HIMSELF AND TALKING TO THE WALL VERY RESTLESS SCREAMING OUT UNABLE TO RELATE NEEDS REDIRECTED REPOSITIONED CALL DR DOVER PATIENT HAS NO MEDICATIONS TO CALM HIM DOWN LEFT HIM A MESSAGE.
[2018-07-24 15:54] VITALS: BP 174/95
--- NOTE | 2018-07-24 16:00 | NUR ---
DR DOVER DID NOT RETURN CALL YET BUT PATIENT IS QUIETER ALERT BUT STILL CONFUSED WILL CONTINUE TO OBSERVE.
--- NOTE | 2018-07-24 18:41 | NUR ---
[facility] INFECTIOUS DISEASE PRACTITIONER HERE AND STATED THAT PATIENT SHOULD BE PLACED BACK ON ISOLATION PER DR ALARCON.
[2018-07-24 20:10] VITALS: BP 199/105
[2018-07-24] MEDS: DOCUSATE SODIUM 100 MG CAPSULE PO SCH (20:53)
[2018-07-24] MEDS: TERAZOSIN 5 MG CAPSULE PO SCH (20:53)
[2018-07-24] MEDS: ALLOPURINOL 100 MG TABLET PO SCH (20:55)
[2018-07-24] MEDS: SIMVASTATIN 20 MG TABLET PO SCH (20:55)
[2018-07-24] MEDS: TRAZODONE 50 MG TABLET PO SCH (21:25)
[2018-07-25] MEDS: PIPERACILLIN/TAZOBACTAM/D5W 3.375 G in PREMIXED 1 EACH IV SCH (05:31)
[2018-07-25] MEDS: IV NS 1000 ML 1,000 ML IV PRN ×2 (05:31→22:12)
[2018-07-25 06:16] VITALS: BP 160/63
[2018-07-25] MEDS: BLOOD SUGAR DIAGNOSTIC 1 EACH STRIP VI SCH ×4 (06:43→21:22)
--- NOTE | 2018-07-25 06:50 | NUR ---
patient is very confused, disoriented, and hallucinated. No in acute distress or SOB. On room air. Patient was agitated and yelling. Contacted DR. Mauro and got the order of Ativan IV 0.5 inj once that helped patient. Accucheck at 2100 189 with 3 units coverage based on sliding scale, at Accucheck at 0630 was 89. Right foot wound dressing changed, cleansed with NS, paint with Betadine, cover with Xeroform, gauze, Kerlix, and jp wrap. Physical assessment done. All due medications given as ordered and well tolerated. Zosyn administered. Hourly round done. Safety measures observed. Fall precaution maintained. Bed in low position, side rails up x2 for safety, brake and alarm on. call light and personal belongings within reach. Continue to monitor and will endorse to the day shift nurse accordingly.
[2018-07-25 07:09] LABS: BILIRUBIN,TOTAL 0.4 mg/dL (0.2-1.0); CREATININE 4.2 mg/dL (0.6-1.3); MAGNESIUM 1.9 mg/dL (1.8-2.4); PHOSPHOROUS 4.6 mg/dL (2.5-4.9); POTASSIUM 4.4 mmol/L (3.5-5.1); TOTAL PROTEIN, SERUM 6.4 g/dL (6.4-8.2)
--- NOTE | 2018-07-25 07:20 | NUR ---
RECEIVED PATIENT IN BED WITH EYES CLOSED BUT IS EASILY AROUSABLE ON ROUNDS ALERT TO SELF WITH CONFUSSION AND DISORIENTATION ALL NEEDS ANTICIPATED AND SATISFIED.REMAIN ON IVF ORDERED WITH NO S/S OF INFILTERATION ON SITE.IV ATB IS INFUSING ORDERED WITH NO ADVERSE OR ALLERGIC REACTIONS AT THIS TIME.RIGHT FOOT DRESSINGS REMAIN INTACT MAX ASSIST PROVIDED MADE COMFORTABLE AND WILL CONTINUE TO OBSERVE.
[2018-07-25 07:41] LABS: BASOPHILS % (AUTO) 0.4 % (0.0-2.0); EOSINOPHILS # (AUTO) 0.2 K/uL (0.0-0.7); EOSINOPHILS % (AUTO) 3.4 % (0.0-7.0); HEMATOCRIT 25.4 % (36.7-47.1); HEMOGLOBIN 8.7 g/dL (12.5-16.3); LYMPHOCYTES # (AUTO) 1.6 K/uL (20.0-40.0); LYMPHOCYTES % (AUTO) 22.9 % (20.5-51.5); MEAN CORPUSCULAR HEMOGLOBIN 28.3 uug (23.8-33.4); MEAN CORPUSCULAR HGB CONC 34 g/dL (32.5-36.3); MONOCYTES # (AUTO) 0.7 K/uL (2.0-10.0); MONOCYTES % (AUTO) 9.9 % (0.0-11.0); NEUTROPHILS # (AUTO) 4.4 K/uL (1.8-8.9); NEUTROPHILS % (AUTO) 63.4 % (38.5-71.5); PLATELET COUNT (AUTO) 389 K/uL (152-348); RED BLOOD CELL COUNT(AUTO) 3.07 MIL/uL (4.06-5.63); WHITE BLOOD COUNT (AUTO) 6.9 K/uL (3.6-10.2)
--- NOTE | 2018-07-25 07:52 | NUR ---
DR KELSEY HERE TO SEE PATIENT AND HE CHANGED THE DRESSING ON HIS RIGHT FOOT WITH NEW ORDERS AND NOTED.
[2018-07-25] MEDS: FERROUS SULFATE 325 MG TABEC PO SCH (08:50)
[2018-07-25] MEDS: CULTURELLE CAPSULE PO SCH ×2 (08:50→21:19)
[2018-07-25] MEDS: ASCORBIC ACID 500 MG TABLET PO SCH ×2 (08:50→21:20)
[2018-07-25] MEDS: ESCITALOPRAM OXALATE 10 MG TABLET PO SCH (08:51)
[2018-07-25] MEDS: GLIMEPIRIDE 2 MG TABLET PO SCH (08:51)
[2018-07-25] MEDS: QUETIAPINE FUMARATE 25 MG TABLET PO SCH ×3 (08:51→21:20)
[2018-07-25] MEDS: busPIRone 5 MG TABLET PO SCH ×3 (08:51→21:19)
[2018-07-25] MEDS: MULTIVIT, IRON, MIN NO. 8, FA TABLET PO SCH (08:51)
[2018-07-25] MEDS: FAMOTIDINE 20 MG TABLET PO SCH ×2 (08:52→16:16)
[2018-07-25] MEDS: GABAPENTIN 100 MG CAPSULE PO SCH ×3 (08:52→16:16)
[2018-07-25] MEDS: Z GUARD REMEDY PASTE 57 GM TUBE TOP SCH ×2 (08:55→21:22)
[2018-07-25] MEDS ORDERED: VANCOMYCIN IV 1,250 MG in IV DEXTROSE 5% 500 ML IV ONE (10:00)
--- NOTE | 2018-07-25 10:00 | NUR ---
RANDOM VANCO IS 15.2 WITH ORDER TO INFUSE VANCOMICIN AND NOTED.
[2018-07-25 11:20] VITALS: BP 191/101
--- NOTE | 2018-07-25 11:28 | NUR ---
CLINICAL PHARMACY NOTE:VANCOMYCIN S: To continue vancomycin dosing on 47y/o male patient for diabetic foot ulcer O: temp 98.4f BUN 30 Scr 4.2 (ARF) WBC 6.9 Vanco random level: 15.6 (on 07/23 with am labs- post vancomycin 1250mg ivpb x 1 on 07/21 at 2350 ) Vanco random level: 15.2 (on 07/25 with am labs- post vanco 1250mg ivpb x1 on 07/23 at 0900) ht 167.6 cm wt 77 kg Plan Will continue to dose by levels due to poor renal function. Since vanco random level is 15.2 mcg/ml, will give vanco 1250 mg IVPB x1 dose today at 1000. Will check renal function and decide when to order next random for further dosing. Will follow
[2018-07-25] MEDS: INSULIN REGULAR, HUMAN 300 UNIT/3 ML VIAL SQ PRN (11:36)
[2018-07-25] MEDS: CLONIDINE HCL 0.1 MG TABLET PO PRN ×2 (11:43→18:23)
[2018-07-25 15:22] VITALS: BP 188/105
--- NOTE | 2018-07-25 15:45 | NUR ---
BLOOD PRESSURE AT THIS TIME IS 188/[address] GARCÍA SPOKE WITH WILDER STATED MD IS NOT AVAILABLE AT THE MOMENT WILL RELAY THE MESSAGE TO HIM.PATIENT IS ASSYMPTOMATIC AT THIS TIME.
[2018-07-25 16:00] VITALS: BP 160/99
--- NOTE | 2018-07-25 20:00 | NUR ---
Patient has a dressing on the the right foot; clean, dry and intact. Will closely monitor.
[2018-07-25 20:34] VITALS: BP 154/82
[2018-07-25] MEDS: SIMVASTATIN 20 MG TABLET PO SCH (21:19)
[2018-07-25] MEDS: TRAZODONE 50 MG TABLET PO SCH (21:19)
[2018-07-25] MEDS: ALLOPURINOL 100 MG TABLET PO SCH (21:20)
[2018-07-25] MEDS: DOCUSATE SODIUM 100 MG CAPSULE PO SCH (21:20)
[2018-07-25] MEDS ORDERED: TERAZOSIN 5 MG CAPSULE ONE (21:39)
[2018-07-25] MEDS: TERAZOSIN 5 MG CAPSULE PO SCH (22:11)
--- NOTE | 2018-07-25 22:50 | NUR ---
Received pt. awake, disoriented, and confused. Pt. laying in bed requesting juice and crackers. IV site in left forearm, patent, intact, with normal saline running. Accu-check done at 2100 with blood sugar at 91 mg/dl. No insulin given. Pt. incontinent with diaper on. Safety precautions initiated. Call light within reach. Bed alarm on.
[2018-07-26] MEDS: CLONIDINE HCL 0.1 MG TABLET PO PRN ×3 (05:02→20:24)
--- NOTE | 2018-07-26 05:30 | NUR ---
Pt. slept intermittently throughout night. Pt. continuouly asked for water and something to eat. For most part pt. is calm and cooperative. IV on left arm was infiltrated. Removed IV and applied new IV on right AC. Elevated blood pressure at 188/77. Clonidine given 0.1 mg. Will monitor BP. Asymptomatic. Wound care provided, dressing changed done, photos taken. All meds given as ordered. All needs met. Safety and comfort measurers provided.
[2018-07-26 05:31] VITALS: BP 189/99
[2018-07-26] MEDS: BLOOD SUGAR DIAGNOSTIC 1 EACH STRIP VI SCH ×4 (06:42→21:47)
--- NOTE | 2018-07-26 06:45 | NUR ---
BP still elevated 198/106. made aware. Dr. Xavier will address his BP this AM. Will continue to monitor.
--- NOTE | 2018-07-26 07:05 | NUR ---
received patient in bed laying comfortably, no s/s of acute distress, no SOB noted, no c/o pain at this time, report patient to have high blood pressure. will continue to monitor, aware,
[2018-07-26] MEDS: GLIMEPIRIDE 2 MG TABLET PO SCH (08:11)
[2018-07-26] MEDS: QUETIAPINE FUMARATE 25 MG TABLET PO SCH ×3 (08:11→20:23)
[2018-07-26] MEDS: busPIRone 5 MG TABLET PO SCH ×3 (08:11→20:24)
[2018-07-26] MEDS: ASCORBIC ACID 500 MG TABLET PO SCH (08:12)
[2018-07-26] MEDS: ESCITALOPRAM OXALATE 10 MG TABLET PO SCH (08:12)
[2018-07-26] MEDS: CULTURELLE CAPSULE PO SCH ×2 (08:12→20:23)
[2018-07-26] MEDS: MULTIVIT, IRON, MIN NO. 8, FA TABLET PO SCH (08:12)
[2018-07-26] MEDS: FERROUS SULFATE 325 MG TABEC PO SCH (08:13)
[2018-07-26] MEDS: GABAPENTIN 100 MG CAPSULE PO SCH ×3 (08:13→17:20)
[2018-07-26] MEDS: FAMOTIDINE 20 MG TABLET PO SCH ×2 (08:13→17:20)
[2018-07-26] MEDS: AMLODIPINE 5 MG TABLET PO SCH ×2 (08:13→20:26)
[2018-07-26] MEDS: Z GUARD REMEDY PASTE 57 GM TUBE TOP SCH ×2 (08:16→21:41)
[2018-07-26 09:16] LABS: BASOPHILS % (AUTO) 0.2 % (0.0-2.0); EOSINOPHILS # (AUTO) 0.2 K/uL (0.0-0.7); EOSINOPHILS % (AUTO) 2.7 % (0.0-7.0); HEMATOCRIT 23.2 % (36.7-47.1); HEMOGLOBIN 7.9 g/dL (12.5-16.3); LYMPHOCYTES # (AUTO) 1.5 K/uL (20.0-40.0); LYMPHOCYTES % (AUTO) 19.6 % (20.5-51.5); MEAN CORPUSCULAR HEMOGLOBIN 28.9 uug (23.8-33.4); MEAN CORPUSCULAR HGB CONC 34 g/dL (32.5-36.3); MEAN CORPUSCULAR VOLUME 84.5 fL (73.0-96.2); MONOCYTES # (AUTO) 0.6 K/uL (2.0-10.0); MONOCYTES % (AUTO) 8.4 % (0.0-11.0); NEUTROPHILS # (AUTO) 5.2 K/uL (1.8-8.9); NEUTROPHILS % (AUTO) 69.1 % (38.5-71.5); PLATELET COUNT (AUTO) 330 K/uL (152-348); RED BLOOD CELL COUNT(AUTO) 2.75 MIL/uL (4.06-5.63); WHITE BLOOD COUNT (AUTO) 7.6 K/uL (3.6-10.2)
[2018-07-26] MEDS: CEFEPIME HCL 1 G in IV DEXTROSE 5% 50 ML IV SCH (09:31)
[2018-07-26 09:36] LABS: BILIRUBIN,TOTAL 0.4 mg/dL (0.2-1.0); CREATININE 4.2 mg/dL (0.6-1.3); MAGNESIUM 1.8 mg/dL (1.8-2.4); PHOSPHOROUS 4.6 mg/dL (2.5-4.9); POTASSIUM 4.2 mmol/L (3.5-5.1); TOTAL PROTEIN, SERUM 6.1 g/dL (6.4-8.2)
[2018-07-26 11:04] VITALS: BP 179/98
--- NOTE | 2018-07-26 11:10 | NUR ---
CLINICAL PHARMACY NOTE:VANCOMYCIN S: To continue vancomycin dosing on 47y/o male patient for diabetic foot ulcer O: temp 98.2f BUN 30 Scr 4.2 (ARF) WBC 7.6 Vanco random level: 15.6 (on 07/23 with am labs- post vancomycin 1250mg ivpb x 1 on 07/21 at 2350 ) Vanco random level: 15.2 (on 07/25 with am labs- post vanco 1250mg ivpb x1 on 07/23 at 0900) ht 167.6 cm wt 77 kg Plan Will continue to dose by levels due to poor renal function. No dose is due today. Will order vanco random level with am labs on 07/27. Will follow level for further dosing. Will follow
[2018-07-26] MEDS: INSULIN REGULAR, HUMAN 300 UNIT/3 ML VIAL SQ PRN ×3 (13:30→21:49)
[2018-07-26 13:44] VITALS: BP 167/86
[2018-07-26 15:30] VITALS: BP 145/80
--- NOTE | 2018-07-26 18:40 | NUR ---
patient in bed with HOB elevated. , no s/s of acute distress, no SOB noted, no c/o pain at this time, continue to monitor BP at 145/80 with HR 69. will continue to monitor, and continue treatment plan.
[2018-07-26 19:14] VITALS: BP 179/93
[2018-07-26] MEDS: TRAZODONE 50 MG TABLET PO SCH (20:22)
[2018-07-26] MEDS: TERAZOSIN 5 MG CAPSULE PO SCH (20:23)
[2018-07-26] MEDS: SIMVASTATIN 20 MG TABLET PO SCH (20:24)
[2018-07-26] MEDS: DOCUSATE SODIUM 100 MG CAPSULE PO SCH (20:25)
[2018-07-26] MEDS: ALLOPURINOL 100 MG TABLET PO SCH (20:26)
--- NOTE | 2018-07-26 22:00 | NUR ---
Received patient resting in bed. No signs of acute distress. Blood pressure elevated during change of shift rounds. PRN Catapres ans well as scheduled Norvasc administered. BP rechecked and still elevated. Asymptomatic. No s/s of acute distress at this time. Tolerated medications. No SOB. Denies pain. Safety and comfort measures implemented. Call light within reach. All needs met. Will continue to monitor throughout shift.
[2018-07-27] MEDS: CLONIDINE HCL 0.1 MG TABLET PO PRN ×3 (01:05→12:24)
[2018-07-27 03:20] VITALS: BP 190/102
[2018-07-27 05:36] VITALS: BP 141/78
[2018-07-27] MEDS: BLOOD SUGAR DIAGNOSTIC 1 EACH STRIP VI SCH ×4 (06:42→20:45)
--- NOTE | 2018-07-27 06:50 | NUR ---
Patient slept throughout the night. BP trended high at patient baseline. PRN Catapres administered as needed. BP currently 141/78. No acute distress noted. No SOB. Safety and comfort measures implemented and effective. Will endorse plan of care to morning shift accordingly.
[2018-07-27 07:08] LABS: BASOPHILS % (AUTO) 0.3 % (0.0-2.0); EOSINOPHILS # (AUTO) 0.2 K/uL (0.0-0.7); EOSINOPHILS % (AUTO) 3.1 % (0.0-7.0); HEMATOCRIT 22.3 % (36.7-47.1); HEMOGLOBIN 7.6 g/dL (12.5-16.3); LYMPHOCYTES # (AUTO) 1.2 K/uL (20.0-40.0); LYMPHOCYTES % (AUTO) 22.8 % (20.5-51.5); MEAN CORPUSCULAR HEMOGLOBIN 28.9 uug (23.8-33.4); MEAN CORPUSCULAR HGB CONC 34 g/dL (32.5-36.3); MEAN CORPUSCULAR VOLUME 84.3 fL (73.0-96.2); MONOCYTES # (AUTO) 0.5 K/uL (2.0-10.0); MONOCYTES % (AUTO) 9.4 % (0.0-11.0); NEUTROPHILS # (AUTO) 3.5 K/uL (1.8-8.9); NEUTROPHILS % (AUTO) 64.4 % (38.5-71.5); PLATELET COUNT (AUTO) 307 K/uL (152-348); RED BLOOD CELL COUNT(AUTO) 2.65 MIL/uL (4.06-5.63); WHITE BLOOD COUNT (AUTO) 5.4 K/uL (3.6-10.2)
[2018-07-27 07:18] LABS: BILIRUBIN,TOTAL 0.3 mg/dL (0.2-1.0); MAGNESIUM 1.9 mg/dL (1.8-2.4); PHOSPHOROUS 4.9 mg/dL (2.5-4.9); POTASSIUM 4.9 mmol/L (3.5-5.1); TOTAL PROTEIN, SERUM 5.9 g/dL (6.4-8.2); VANCOMYCIN,RANDOM 15.2 ug/mL (18.0-26.0)
[2018-07-27] MEDS: GLIMEPIRIDE 2 MG TABLET PO SCH (08:10)
[2018-07-27] MEDS: CULTURELLE CAPSULE PO SCH ×2 (08:10→20:36)
[2018-07-27] MEDS: busPIRone 5 MG TABLET PO SCH ×3 (08:10→20:34)
[2018-07-27] MEDS: ASCORBIC ACID 500 MG TABLET PO SCH (08:10)
[2018-07-27] MEDS: ESCITALOPRAM OXALATE 10 MG TABLET PO SCH (08:10)
[2018-07-27] MEDS: MULTIVIT, IRON, MIN NO. 8, FA TABLET PO SCH (08:10)
[2018-07-27] MEDS: ZINC SULFATE 220 MG CAPSULE PO SCH (08:10)
[2018-07-27] MEDS: FERROUS SULFATE 325 MG TABEC PO SCH (08:10)
[2018-07-27] MEDS: AMLODIPINE 5 MG TABLET PO SCH ×2 (08:10→20:37)
[2018-07-27] MEDS: QUETIAPINE FUMARATE 25 MG TABLET PO SCH ×3 (08:11→20:35)
[2018-07-27] MEDS: FAMOTIDINE 20 MG TABLET PO SCH ×2 (08:11→17:00)
[2018-07-27] MEDS: GABAPENTIN 100 MG CAPSULE PO SCH ×3 (08:11→17:00)
[2018-07-27] MEDS: CEFEPIME HCL 1 G in IV DEXTROSE 5% 50 ML IV SCH (08:29)
[2018-07-27] MEDS: Z GUARD REMEDY PASTE 57 GM TUBE TOP SCH ×2 (08:43→20:46)
[2018-07-27] MEDS ORDERED: VANCOMYCIN IV 1,250 MG in IV DEXTROSE 5% 500 ML IV ONE (10:00)
[2018-07-27] MEDS: INSULIN REGULAR, HUMAN 300 UNIT/3 ML VIAL SQ PRN (11:34)
[2018-07-27 12:15] VITALS: BP 165/93
--- NOTE | 2018-07-27 13:45 | NUR ---
RECEIVED HAND OFF REPORT FROM REBECCA.
--- NOTE | 2018-07-27 14:25 | NUR ---
CLINICAL PHARMACY NOTE:VANCOMYCIN S: To continue vancomycin dosing on 47y/o male patient for diabetic foot ulcer O: temp 98.1f BUN 36 Scr 4.0 (ARF) WBC 5.4 Vanco random level: 15.6 (on 07/23 with am labs- post vancomycin 1250mg ivpb x 1 on 07/21 at 2350 ) Vanco random level: 15.2 (on 07/25 with am labs- post vanco 1250mg ivpb x1 on 07/23 at 0900) Vanco random level: 15.2 (today with am labs) ht 167.6 cm wt 77 kg Plan Will continue to dose by levels due to poor renal function. Per random level, dosed another 1250mg x 1 today at 1000. Will check renal function in am and order next random accordingly. Will follow
[2018-07-27 16:11] VITALS: BP 156/89
--- NOTE | 2018-07-27 19:06 | NUR ---
PATIENT REMAINED STABLE THROUGHOUT SHIFT. STILL ON CONTACT ISOLATION IV ACCESS ON RIGHT FA #20 INTACT AND PATENT. WOUND DRESSING ON RIGHT FOOT CLEAN DRY AND INTACT. LAST BLOOD SUGAR 118. NO INSULIN COVERAGE NEEDED ALL NEEDS ATTENDED AND ANTICIPATED. WILL CONTINUE TO MONITOR CLOSELY.
[2018-07-27 20:00] VITALS: BP 144/62
--- NOTE | 2018-07-27 20:00 | NUR ---
PATIENT RECEIVED ASLEEP IN BED AND RESTING COMFORTABLY. NO SIGNS OR SYMPTOMS OF ACUTE DISTRESS OR DISCOMFORT NOTED OR OBSERVED. VS FROM PREVIOUS SHIFT ARE WNL AND PATIENT IS STABLE. ALL SAFETY AND FALL PRECAUTION MEASURES ARE IN PLACE. BED IS IN LOWEST POSITION WITH BRAKE APPLIED AND EXIT ALARM ACTIVATED. 2 SIDE RAILS ARE UP AND IN LOCKED POSITION. CALL LIGHT AND PERSONAL ITEMS ARE WITHIN REACH AT ALL TIMES. WILL CONTINUE TO MONITOR.
[2018-07-27] MEDS: DOCUSATE SODIUM 100 MG CAPSULE PO SCH (20:35)
[2018-07-27] MEDS: ALLOPURINOL 100 MG TABLET PO SCH (20:36)
[2018-07-27] MEDS: TRAZODONE 50 MG TABLET PO SCH (20:36)
[2018-07-27] MEDS: SIMVASTATIN 20 MG TABLET PO SCH (20:36)
[2018-07-27] MEDS: TERAZOSIN 5 MG CAPSULE PO SCH (20:45)
--- NOTE | 2018-07-28 05:16 | NUR ---
PATIENT SLEPT COMFORTABLY THROUGHOUT NIGHT WITHOUT ANY COMPLAINTS OF PAIN OR ACUTE DISTRESS. ALL PRESCRIBED MEDICATIONS PROVIDED ORDERED, TOLERATED WELL, AND WITHOUT ANY ADVERSE EFFECTS. ALL NURSING NEEDS MET PROMPTLY AND PATIENT WAS KEPT WARM AND DRY. VS ARE WNL AND PATIENT HAS BEEN STABLE THIS SHIFT. SAFETY AND FALL PRECAUTIONS REMAIN IN PLACE. BED IN LOWEST POSITION WITH BRAKE APPLIED AND BED EXIT ACTIVATED. 2 SIDE RAILS ARE UP AND IN THE LOCKED POSITION. CALL LIGHT AND PERSONAL ITEMS ARE WITHIN REACH AT ALL TIMES. WILL PROVIDE REPORT TO ONCOMING SHIFT.
[2018-07-28] MEDS: BLOOD SUGAR DIAGNOSTIC 1 EACH STRIP VI SCH ×4 (05:36→20:00)
[2018-07-28 05:45] VITALS: BP 156/69
[2018-07-28 07:39] LABS: BASOPHILS % (AUTO) 0.4 % (0.0-2.0); EOSINOPHILS # (AUTO) 0.2 K/uL (0.0-0.7); EOSINOPHILS % (AUTO) 2.6 % (0.0-7.0); LYMPHOCYTES # (AUTO) 1.5 K/uL (20.0-40.0); LYMPHOCYTES % (AUTO) 24.6 % (20.5-51.5); MEAN CORPUSCULAR HEMOGLOBIN 28.8 uug (23.8-33.4); MEAN CORPUSCULAR HGB CONC 34 g/dL (32.5-36.3); MEAN CORPUSCULAR VOLUME 83.6 fL (73.0-96.2); MONOCYTES # (AUTO) 0.5 K/uL (2.0-10.0); MONOCYTES % (AUTO) 8.6 % (0.0-11.0); NEUTROPHILS # (AUTO) 3.8 K/uL (1.8-8.9); NEUTROPHILS % (AUTO) 63.8 % (38.5-71.5); PLATELET COUNT (AUTO) 325 K/uL (152-348); RED BLOOD CELL COUNT(AUTO) 2.95 MIL/uL (4.06-5.63)
[2018-07-28 07:47] LABS: BILIRUBIN,TOTAL 0.5 mg/dL (0.2-1.0); CREATININE 4.2 mg/dL (0.6-1.3); PHOSPHOROUS 4.9 mg/dL (2.5-4.9); POTASSIUM 4.6 mmol/L (3.5-5.1); TOTAL PROTEIN, SERUM 6.4 g/dL (6.4-8.2)
[2018-07-28] MEDS: busPIRone 5 MG TABLET PO SCH ×3 (07:59→20:05)
[2018-07-28] MEDS: CULTURELLE CAPSULE PO SCH ×2 (08:00→20:06)
[2018-07-28] MEDS: ZINC SULFATE 220 MG CAPSULE PO SCH (08:00)
[2018-07-28] MEDS: QUETIAPINE FUMARATE 25 MG TABLET PO SCH ×3 (08:00→20:05)
[2018-07-28] MEDS: MULTIVIT, IRON, MIN NO. 8, FA TABLET PO SCH (08:00)
[2018-07-28] MEDS: ASCORBIC ACID 500 MG TABLET PO SCH (08:00)
[2018-07-28] MEDS: FAMOTIDINE 20 MG TABLET PO SCH ×2 (08:00→16:02)
[2018-07-28] MEDS: GABAPENTIN 100 MG CAPSULE PO SCH ×3 (08:00→16:02)
[2018-07-28] MEDS: ESCITALOPRAM OXALATE 10 MG TABLET PO SCH (08:00)
[2018-07-28] MEDS: GLIMEPIRIDE 2 MG TABLET PO SCH (08:00)
[2018-07-28] MEDS: FERROUS SULFATE 325 MG TABEC PO SCH (08:00)
[2018-07-28] MEDS: Z GUARD REMEDY PASTE 57 GM TUBE TOP SCH ×2 (08:05→20:07)
[2018-07-28] MEDS: AMLODIPINE 5 MG TABLET PO SCH ×2 (08:05→20:06)
[2018-07-28 08:07] LABS: HEMATOCRIT 24.7 % (36.7-47.1); HEMOGLOBIN 8.5 g/dL (12.5-16.3)
[2018-07-28] MEDS: CEFEPIME HCL 1 G in IV DEXTROSE 5% 50 ML IV SCH (08:07)
--- NOTE | 2018-07-28 09:09 | NUR ---
CLINICAL PHARMACY NOTE:VANCOMYCIN S: To continue vancomycin dosing on 47y/o male patient for diabetic foot ulcer O: temp 98.2 BUN 40 Scr 4.2 (ARF) WBC 6.0 Vanco random level: 15.6 (on 07/23 with am labs- post vancomycin 1250mg ivpb x 1 on 07/21 at 2350 ) Vanco random level: 15.2 (on 07/25 with am labs- post vanco 1250mg ivpb x1 on 07/23 at 0900) Vanco random level: 15.2 (on 07/27 with am labs- pos [id number] x1 on 07/25 at 1000 ht 167.6 cm wt 77 kg Plan Will continue to dose by levels due to poor renal function. Next random ordered for tomorrow with am labs based on prior dosing and levels. Will check level when available and redose as needed. Will follow
[2018-07-28 10:43] VITALS: BP 153/84
[2018-07-28 15:00] VITALS: BP 157/81
[2018-07-28 19:41] VITALS: BP 167/80
--- NOTE | 2018-07-28 20:00 | NUR ---
RECEIVED PATIENT AWAKE IN BED. ALERT TO SELF. DENIES PAIN WHEN ASKED. BP ELEVATED 167/80. PATIENT GIVEN CLONIDINE 0.1MG PO PRN FOR ELEVATED BP. ALL OTHER VSS. H/L INTACT AND PATENT, NOTED TO RIGHT FA #22 GAUGE. DRESSING NOTED TO RIGHT FOOT, C/D/I. BED ALARM ON. CALL LIGHT IN REACH. ALL NEEDS ATTENDED. WILL CONTINUE TO MONITOR AND ASSESS.
[2018-07-28] MEDS: INSULIN REGULAR, HUMAN 300 UNIT/3 ML VIAL SQ PRN (20:03)
[2018-07-28] MEDS: DOCUSATE SODIUM 100 MG CAPSULE PO SCH (20:05)
[2018-07-28] MEDS: ALLOPURINOL 100 MG TABLET PO SCH (20:05)
[2018-07-28] MEDS: SIMVASTATIN 20 MG TABLET PO SCH (20:05)
[2018-07-28] MEDS: TERAZOSIN 5 MG CAPSULE PO SCH (20:06)
[2018-07-28] MEDS: TRAZODONE 50 MG TABLET PO SCH (20:07)
[2018-07-28] MEDS: CLONIDINE HCL 0.1 MG TABLET PO PRN (20:07)
[2018-07-29 04:33] VITALS: BP 157/85
--- NOTE | 2018-07-29 05:32 | NUR ---
PATIENT AWAKE IN BED. SLEPT WELL WITH A FEW EPISODES OF SCREAMING OUT. VSS. PATIENT DENIES PAIN WHEN ASKED. NO FACIAL GRIMACE NOTED. BED ALARM ON. CALL LIGHT IN REACH. ALL NEEDS ATTENDED. WILL CONTINUE TO MONITOR.
[2018-07-29] MEDS: BLOOD SUGAR DIAGNOSTIC 1 EACH STRIP VI SCH ×4 (06:29→20:24)
[2018-07-29 06:36] LABS: BASOPHILS % (AUTO) 0.4 % (0.0-2.0); EOSINOPHILS # (AUTO) 0.1 K/uL (0.0-0.7); EOSINOPHILS % (AUTO) 2.4 % (0.0-7.0); HEMATOCRIT 25.1 % (36.7-47.1); HEMOGLOBIN 8.5 g/dL (12.5-16.3); LYMPHOCYTES # (AUTO) 1.2 K/uL (20.0-40.0); LYMPHOCYTES % (AUTO) 20.4 % (20.5-51.5); MEAN CORPUSCULAR HEMOGLOBIN 28.4 uug (23.8-33.4); MEAN CORPUSCULAR HGB CONC 34 g/dL (32.5-36.3); MONOCYTES # (AUTO) 0.4 K/uL (2.0-10.0); MONOCYTES % (AUTO) 6.4 % (0.0-11.0); NEUTROPHILS # (AUTO) 4.1 K/uL (1.8-8.9); NEUTROPHILS % (AUTO) 70.4 % (38.5-71.5); PLATELET COUNT (AUTO) 309 K/uL (152-348); RED BLOOD CELL COUNT(AUTO) 2.98 MIL/uL (4.06-5.63); WHITE BLOOD COUNT (AUTO) 5.9 K/uL (3.6-10.2)
[2018-07-29 07:10] LABS: BILIRUBIN,TOTAL 0.3 mg/dL (0.2-1.0); CREATININE 4.4 mg/dL (0.6-1.3); MAGNESIUM 1.9 mg/dL (1.8-2.4); PHOSPHOROUS 4.7 mg/dL (2.5-4.9); POTASSIUM 4.7 mmol/L (3.5-5.1); TOTAL PROTEIN, SERUM 6.3 g/dL (6.4-8.2)
[2018-07-29] MEDS ORDERED: FLEET ENEMA 133 ML BOTTLE RC PRN ×2 (08:00)
[2018-07-29] MEDS ORDERED: MAGNESIUM CITRATE 296 ML BOTTLE PO ONE (08:00)
[2018-07-29] MEDS ORDERED: GOLYTELY 4000 ML BOTTLE PO ONE (08:00)
--- NOTE | 2018-07-29 08:00 | NUR ---
received awake alert, oriented x 1, denies of pain, quiet and compliant of care at this time, assessment done, safety measures maintained, call light with bed alarm on, contact isolation maintained
[2018-07-29] MEDS: FAMOTIDINE 20 MG TABLET PO SCH ×2 (08:50→16:39)
[2018-07-29] MEDS: MULTIVIT, IRON, MIN NO. 8, FA TABLET PO SCH (08:50)
[2018-07-29] MEDS: ASCORBIC ACID 500 MG TABLET PO SCH (08:50)
[2018-07-29] MEDS: GABAPENTIN 100 MG CAPSULE PO SCH ×3 (08:50→16:37)
[2018-07-29] MEDS: FERROUS SULFATE 325 MG TABEC PO SCH (08:52)
[2018-07-29] MEDS: ESCITALOPRAM OXALATE 10 MG TABLET PO SCH (08:52)
[2018-07-29] MEDS: busPIRone 5 MG TABLET PO SCH ×3 (08:53→20:19)
[2018-07-29] MEDS: GLIMEPIRIDE 2 MG TABLET PO SCH (08:53)
[2018-07-29] MEDS: QUETIAPINE FUMARATE 25 MG TABLET PO SCH ×3 (08:53→20:19)
[2018-07-29] MEDS: ZINC SULFATE 220 MG CAPSULE PO SCH (08:53)
[2018-07-29] MEDS: CULTURELLE CAPSULE PO SCH ×2 (08:53→20:20)
[2018-07-29] MEDS: AMLODIPINE 5 MG TABLET PO SCH ×2 (08:57→20:20)
[2018-07-29] MEDS: Z GUARD REMEDY PASTE 57 GM TUBE TOP SCH ×2 (08:57→20:29)
[2018-07-29] MEDS: CEFEPIME HCL 1 G in IV DEXTROSE 5% 50 ML IV SCH (09:01)
[2018-07-29] MEDS: INSULIN REGULAR, HUMAN 300 UNIT/3 ML VIAL SQ PRN (11:30)
[2018-07-29] MEDS: CLONIDINE HCL 0.1 MG TABLET PO PRN (11:31)
--- NOTE | 2018-07-29 11:32 | NUR ---
golytely started- taking sips at a time
[2018-07-29 11:40] VITALS: BP 165/90
--- NOTE | 2018-07-29 12:27 | NUR ---
CLINICAL PHARMACY NOTE:VANCOMYCIN S: To continue vancomycin dosing on 47y/o male patient for diabetic foot ulcer O: temp 98.2 BUN 40 Scr 4.2 (ARF) WBC 6.0 Vanco random level: 15.6 (on 07/23 with am labs- post vancomycin 1250mg ivpb x 1 on 07/21 at 2350 ) Vanco random level: 15.2 (on 07/25 with am labs- post vanco 1250mg ivpb x1 on 07/23 at 0900) Vanco random level: 15.2 (on 07/27 with am labs- pos [id number] x1 on 07/25 at 1000 ht 167.6 cm wt 77 kg vancom random level pending on 07/29 Plan Will continue to dose by levels due to poor renal function. Vancomycin random level was ordered for today at 0600 but is send out to [facility] due to malfunctioning of the machine in (expected to be out this afternoon). Will follow the level for further dosing. Addendum: 07/29/18 at 1405 by SREEDHAR GREGG ADM VANCOMYCIN RANDOM IS 18.1 FOR TODAY AT 0600(SEND-OUT, RESULT CAME OUT IN THE AFTERNOON) WILL GIVE 1 GRAM IV X1 TODAY AND DRAW RANDOM ON 07/31(ORDERED ALREADY) FOR FURTHER DOSING.
--- NOTE | 2018-07-29 13:00 | NUR ---
took only 2 cups of golytely mixed with juice- refused to take anymore, Cortney Croft APPLIED RESEARCHER informed
--- NOTE | 2018-07-29 13:30 | NUR ---
seen by Zo Croft SUPERVISOR RIVETING with orders
--- NOTE | 2018-07-29 14:00 | NUR ---
explained to pt that he needs NGT inserted to get the prep Golytely for EGD/ Colonoscopy-refused but agreed to take the golytely after it was explained to him in Swedish by JANEEN Ruiz
[2018-07-29] MEDS ORDERED: VANCOMYCIN IV 1 G in PREMIXED 0 EACH IV ONE (15:00)
--- NOTE | 2018-07-29 15:00 | NUR ---
took only 300 ml of golytely with ice, tried to insert ngt but got mad and became agitated, and screamed "NO"
[2018-07-29 16:12] VITALS: BP 150/90
--- NOTE | 2018-07-29 17:59 | NUR ---
took less than 1/2 of jug, still working by taking sips, again reteirated placement of NGT if unable to take it all but adamantly refused NGT, just 1 BM this shift, soft, moderate amount, no distress noted
--- NOTE | 2018-07-29 19:15 | NUR ---
called Cortney Croft STEP DOWN SPECIALIST and and left message that pt took about 1/3 of jug and still refused to have ngt insertion
[2018-07-29 19:45] VITALS: BP 159/85
--- NOTE | 2018-07-29 19:48 | NUR ---
Received patient awake in bed, not in any form of distress. Still with IV access on the right forearm to saline lock, patent and intact. Noted patient is for possible EGD-Colonoscopy tomorrow per Cortney Croft, however patient not being cooperative on the bowel prep. Day shift nurse informed Cortney that patient has not finished the golytely. Will continue to encourage the patient to drink golytely tonight. 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 Noted awaiting 2 MD's to sign consent for EGD-Colonoscopy since patient is not oriented to sign the consent. Will continue to monitor.
--- NOTE | 2018-07-29 20:07 | NUR ---
Spoke with Cortney Croft who ordered to discontinue bowel prep of patient and resume previous diet and that Dr. Gray will decide tomorrow if patient will undergo EGD-Colonoscopy.
[2018-07-29] MEDS: ALLOPURINOL 100 MG TABLET PO SCH (20:20)
[2018-07-29] MEDS: SIMVASTATIN 20 MG TABLET PO SCH (20:20)
[2018-07-29] MEDS: TRAZODONE 50 MG TABLET PO SCH (20:20)
[2018-07-29] MEDS: DOCUSATE SODIUM 100 MG CAPSULE PO SCH (20:20)
[2018-07-29] MEDS: TERAZOSIN 5 MG CAPSULE PO SCH (21:31)
[2018-07-30 04:37] VITALS: BP 178/93
--- NOTE | 2018-07-30 05:36 | NUR ---
Patient slept intermittently throughout the night. No complaints made. No distress noted. Still with IV access at right arm, intact. Attended all needs. Ensured safety and comfort.
[2018-07-30] MEDS: BLOOD SUGAR DIAGNOSTIC 1 EACH STRIP VI SCH ×4 (06:33→20:22)
[2018-07-30] MEDS: busPIRone 5 MG TABLET PO SCH ×3 (07:23→20:17)
[2018-07-30] MEDS: QUETIAPINE FUMARATE 25 MG TABLET PO SCH ×3 (07:24→20:17)
[2018-07-30] MEDS: GLIMEPIRIDE 2 MG TABLET PO SCH (07:24)
[2018-07-30] MEDS: FERROUS SULFATE 325 MG TABEC PO SCH (08:04)
[2018-07-30] MEDS: FAMOTIDINE 20 MG TABLET PO SCH ×2 (08:04→16:19)
[2018-07-30] MEDS: AMLODIPINE 5 MG TABLET PO SCH ×2 (08:04→20:16)
[2018-07-30] MEDS: ASCORBIC ACID 500 MG TABLET PO SCH (08:04)
[2018-07-30] MEDS: ESCITALOPRAM OXALATE 10 MG TABLET PO SCH (08:04)
[2018-07-30] MEDS: ZINC SULFATE 220 MG CAPSULE PO SCH (08:04)
[2018-07-30] MEDS: MULTIVIT, IRON, MIN NO. 8, FA TABLET PO SCH (08:04)
[2018-07-30] MEDS: CULTURELLE CAPSULE PO SCH ×2 (08:04→20:17)
[2018-07-30] MEDS: GABAPENTIN 100 MG CAPSULE PO SCH ×3 (08:04→16:19)
[2018-07-30] MEDS: CEFEPIME HCL 1 G in IV DEXTROSE 5% 50 ML IV SCH (08:05)
[2018-07-30] MEDS: Z GUARD REMEDY PASTE 57 GM TUBE TOP SCH ×2 (08:11→20:57)
[2018-07-30 11:03] VITALS: BP 169/75
--- NOTE | 2018-07-30 13:12 | NUR ---
CLINICAL PHARMACY NOTE:VANCOMYCIN S: To continue vancomycin dosing on 47y/o male patient for diabetic foot ulcer O: temp 98.2 BUN 40 Scr 4.2 (ARF) WBC 6.0 Vanco random level: 15.6 (on 07/23 with am labs- post vancomycin 1250mg ivpb x 1 on 07/21 at 2350 ) Vanco random level: 15.2 (on 07/25 with am labs- post vanco 1250mg ivpb x1 on 07/23 at 0900) Vanco random level: 15.2 (on 07/27 with am labs- pos [id number] x1 on 07/25 at 1000 Vanco random level: 18.1 (on 07/29 with am labs-post vanco 1250mg x1 on 07/27 at 1000 ht 167.6 cm wt 77 kg Plan Will continue to dose by levels due to poor renal function. Since Vancomycin random level was under 20 , Vancomycin 1000mg IV x1 was given yesterday at 1500. Next Vancomycin level is on order for tomorrow at 0600. Will follow the level for further dosing.
[2018-07-30 15:01] VITALS: BP 151/83
--- NOTE | 2018-07-30 15:43 | NUR ---
PER DR MORALES NO EGD AND COLONOSCOPY
--- NOTE | 2018-07-30 19:34 | NUR ---
Received patient asleep in bed, not in any form of distress. Still with IV access on the right forearm, intact. Right foot with dressing, intact. Noted per Dr. Gray, GI, will not proceed to doing EGD-Colonoscopy for patient. Will continue to monitor for any signs of bleeding. Patient legally blind, fall precautions observed. Noted patient pending SNF placement. Bed in low position, locked, side rails up x 2 for safety. Noise and lights subdued.
[2018-07-30 20:02] VITALS: BP 146/73
[2018-07-30] MEDS: ALLOPURINOL 100 MG TABLET PO SCH (20:16)
[2018-07-30] MEDS: DOCUSATE SODIUM 100 MG CAPSULE PO SCH (20:16)
[2018-07-30] MEDS: TRAZODONE 50 MG TABLET PO SCH (20:17)
[2018-07-30] MEDS: SIMVASTATIN 20 MG TABLET PO SCH (20:17)
[2018-07-30] MEDS: INSULIN REGULAR, HUMAN 300 UNIT/3 ML VIAL SQ PRN (20:23)
[2018-07-30] MEDS: TERAZOSIN 5 MG CAPSULE PO SCH (21:08)
[2018-07-30] MEDS: CLONIDINE HCL 0.1 MG TABLET PO PRN (23:37)
[2018-07-31 01:08] VITALS: BP 156/84
[2018-07-31 06:11] VITALS: BP 142/64
[2018-07-31] MEDS: BLOOD SUGAR DIAGNOSTIC 1 EACH STRIP VI SCH ×4 (06:40→21:41)
[2018-07-31 06:49] LABS: CREATININE 4.2 mg/dL (0.6-1.3); MAGNESIUM 1.9 mg/dL (1.8-2.4); PHOSPHOROUS 4.4 mg/dL (2.5-4.9); POTASSIUM 5.1 mmol/L (3.5-5.1); VANCOMYCIN,RANDOM 17.9 ug/mL (18.0-26.0)
[2018-07-31 06:58] LABS: BASOPHILS % (AUTO) 0.4 % (0.0-2.0); EOSINOPHILS # (AUTO) 0.2 K/uL (0.0-0.7); EOSINOPHILS % (AUTO) 3.2 % (0.0-7.0); HEMATOCRIT 24.2 % (36.7-47.1); HEMOGLOBIN 8.2 g/dL (12.5-16.3); LYMPHOCYTES # (AUTO) 1.3 K/uL (20.0-40.0); LYMPHOCYTES % (AUTO) 22.3 % (20.5-51.5); MEAN CORPUSCULAR HEMOGLOBIN 28.2 uug (23.8-33.4); MEAN CORPUSCULAR HGB CONC 34 g/dL (32.5-36.3); MEAN CORPUSCULAR VOLUME 83.5 fL (73.0-96.2); MONOCYTES # (AUTO) 0.5 K/uL (2.0-10.0); MONOCYTES % (AUTO) 7.9 % (0.0-11.0); NEUTROPHILS # (AUTO) 3.8 K/uL (1.8-8.9); NEUTROPHILS % (AUTO) 66.2 % (38.5-71.5); PLATELET COUNT (AUTO) 285 K/uL (152-348); WHITE BLOOD COUNT (AUTO) 5.8 K/uL (3.6-10.2)
[2018-07-31] MEDS: FAMOTIDINE 20 MG TABLET PO SCH ×2 (08:05→16:01)
[2018-07-31] MEDS: CULTURELLE CAPSULE PO SCH ×2 (08:05→20:18)
[2018-07-31] MEDS: MULTIVIT, IRON, MIN NO. 8, FA TABLET PO SCH (08:05)
[2018-07-31] MEDS: ESCITALOPRAM OXALATE 10 MG TABLET PO SCH (08:05)
[2018-07-31] MEDS: AMLODIPINE 5 MG TABLET PO SCH ×2 (08:05→20:20)
[2018-07-31] MEDS: ASCORBIC ACID 500 MG TABLET PO SCH (08:05)
[2018-07-31] MEDS: GABAPENTIN 100 MG CAPSULE PO SCH ×3 (08:05→16:01)
[2018-07-31] MEDS: busPIRone 5 MG TABLET PO SCH ×3 (08:05→20:19)
[2018-07-31] MEDS: QUETIAPINE FUMARATE 25 MG TABLET PO SCH ×3 (08:05→20:20)
[2018-07-31] MEDS: GLIMEPIRIDE 2 MG TABLET PO SCH (08:05)
[2018-07-31] MEDS: ZINC SULFATE 220 MG CAPSULE PO SCH (08:05)
[2018-07-31] MEDS: CEFEPIME HCL 1 G in IV DEXTROSE 5% 50 ML IV SCH (08:13)
[2018-07-31] MEDS: Z GUARD REMEDY PASTE 57 GM TUBE TOP SCH ×2 (08:25→21:42)
[2018-07-31] MEDS ORDERED: EPOETIN ALFA 10,000 UNITS/ML VIAL SQ ONE (10:15)
[2018-07-31] MEDS: INSULIN REGULAR, HUMAN 300 UNIT/3 ML VIAL SQ PRN (10:37)
[2018-07-31 11:10] LABS: IRON, SERUM 40 ug/dL (50-175)
[2018-07-31 11:18] VITALS: BP 152/83
--- NOTE | 2018-07-31 12:06 | NUR ---
CLINICAL PHARMACY NOTE:VANCOMYCIN S: To continue vancomycin dosing on 47y/o male patient for diabetic foot ulcer O: temp 98 BUN 44 Scr 4.2 (ARF) WBC 5.8 Vanco random level: 15.6 (on 07/23 with am labs- post vancomycin 1250mg ivpb x 1 on 07/21 at 2350 ) Vanco random level: 15.2 (on 07/25 with am labs- post vanco 1250mg ivpb x1 on 07/23 at 0900) Vanco random level: 15.2 (on 07/27 with am labs- pos [id number] x1 on 07/25 at 1000 Vanco random level: 18.1 (on 07/29 with am labs-post vanco 1250mg x1 on 07/27 at 1000 Vanco random level: 17.9 (on 07/31 with am labs-post vanco 1250mg x1 on 07/29 at 1500) ht 167.6 cm wt 77 kg Plan Will continue to dose by levels due to poor renal function. Since Vancomycin random level was under 20 , Vancomycin 1000mg IV x1 was given yesterday at 1400. Next Vancomycin level is on order for 08/02 at 0600. Will follow the level for further dosing.
[2018-07-31] MEDS ORDERED: VANCOMYCIN IV 1 G in PREMIXED 0 EACH IV ONE (14:00)
[2018-07-31 15:05] VITALS: BP 158/83
--- NOTE | 2018-07-31 19:30 | NUR ---
PATIENT ALERT BUT FORGETFULL NO SOB NO CHEST PAIN, CONT TO MONITOR SUGAR. PATIENT REMOVED HIS R FOOT DRESSING DUE TO UNKNOWN REASON. PATIENT STILL HAS EPISODE OF YELLING AND SCREAMING DUE TO MENTAL CONDITION. CONT TO REDIRECT BEHAVIOR, CONT TO MONITOR.
[2018-07-31 20:02] VITALS: BP 164/90
[2018-07-31] MEDS: ALLOPURINOL 100 MG TABLET PO SCH (20:18)
[2018-07-31] MEDS: TRAZODONE 50 MG TABLET PO SCH (20:19)
[2018-07-31] MEDS: SIMVASTATIN 20 MG TABLET PO SCH (20:20)
[2018-07-31] MEDS: DOCUSATE SODIUM 100 MG CAPSULE PO SCH (20:20)
[2018-07-31] MEDS: TERAZOSIN 5 MG CAPSULE PO SCH (20:20)
[2018-08-01] MEDS: BLOOD SUGAR DIAGNOSTIC 1 EACH STRIP VI SCH ×4 (06:02→20:33)
[2018-08-01 06:23] VITALS: BP 182/95
--- NOTE | 2018-08-01 06:31 | NUR ---
PATIENT SLEPT MOST OF THE NIGHT, NO COMPLAIN OF PAIN AT THIS TIME. R FOOT DRESSING WAS CHANGES, CONTINUE TO ENCOURAGE PATIENT NOT TO REMOVED HIS FOOT DRESSING AT THIS TIME. PATIENT HAS NO S/S OF HYPO/HYPERGYLCEMIA. CONT VISUAL CHECKS.
[2018-08-01] MEDS: GLIMEPIRIDE 2 MG TABLET PO SCH (07:53)
[2018-08-01] MEDS: busPIRone 5 MG TABLET PO SCH ×3 (07:53→20:24)
[2018-08-01] MEDS: QUETIAPINE FUMARATE 25 MG TABLET PO SCH ×3 (07:54→20:26)
[2018-08-01] MEDS: AMLODIPINE 5 MG TABLET PO SCH ×2 (08:00→20:26)
[2018-08-01] MEDS: ZINC SULFATE 220 MG CAPSULE PO SCH (08:00)
[2018-08-01] MEDS: ASCORBIC ACID 500 MG TABLET PO SCH (08:00)
[2018-08-01] MEDS: CULTURELLE CAPSULE PO SCH ×2 (08:00→20:23)
[2018-08-01] MEDS: MULTIVIT, IRON, MIN NO. 8, FA TABLET PO SCH (08:00)
[2018-08-01] MEDS: FAMOTIDINE 20 MG TABLET PO SCH ×2 (08:01→16:43)
[2018-08-01] MEDS: ESCITALOPRAM OXALATE 10 MG TABLET PO SCH (08:01)
[2018-08-01] MEDS: GABAPENTIN 100 MG CAPSULE PO SCH ×3 (08:01→16:43)
[2018-08-01] MEDS: Z GUARD REMEDY PASTE 57 GM TUBE TOP SCH ×2 (08:02→20:27)
[2018-08-01] MEDS: CEFEPIME HCL 1 G in IV DEXTROSE 5% 50 ML IV SCH (08:09)
[2018-08-01] MEDS: INSULIN REGULAR, HUMAN 300 UNIT/3 ML VIAL SQ PRN ×2 (11:04→20:38)
[2018-08-01 11:08] VITALS: BP 152/72
--- NOTE | 2018-08-01 11:32 | NUR ---
CLINICAL PHARMACY NOTE:VANCOMYCIN S: To continue vancomycin dosing on 47y/o male patient for diabetic foot ulcer O: temp 98.1 BUN 44 (07/31) Scr 4.2 (ARF - 07/31 ) WBC 5.8 (07/31) Vanco random level: 15.6 (on 07/23 with am labs- post vancomycin 1250mg ivpb x 1 on 07/21 at 2350 ) Vanco random level: 15.2 (on 07/25 with am labs- post vanco 1250mg ivpb x1 on 07/23 at 0900) Vanco random level: 15.2 (on 07/27 with am labs- pos [id number] x1 on 07/25 at 1000 Vanco random level: 18.1 (on 07/29 with am labs-post vanco 1250mg x1 on 07/27 at 1000 Vanco random level: 17.9 (on 07/31 with am labs-post vanco 1000mg x1 on 07/29 at 1500) ht 167.6 cm wt 77 kg Plan Will continue to dose by levels due to poor renal function. No dose is due today. Last dose of Vancomycin 1000mg IV x1 was given on 07/31 at 1400. Next Vancomycin random level is on order for 08/02 at 0600. Will follow the level for further dosing.
[2018-08-01 15:13] VITALS: BP 136/76
--- NOTE | 2018-08-01 16:53 | NUR ---
PT SEEN BY DR DINH AND DRESSING CHANGE
--- NOTE | 2018-08-01 20:00 | NUR ---
Pt. is laying in bed alert oriented x1-2 confused. Pt. denies pain or discomfort. IV site is in right forearm 20 gauge saline lock, patent, intact. Call light within reach. Bed in lowest position, 2 side rails up, bed locked, bed alarm on. Dressing on right foot clean, dry, and intact.
[2018-08-01 20:01] VITALS: BP 161/87
[2018-08-01] MEDS: DOCUSATE SODIUM 100 MG CAPSULE PO SCH (20:23)
[2018-08-01] MEDS: TERAZOSIN 5 MG CAPSULE PO SCH (20:25)
[2018-08-01] MEDS: ALLOPURINOL 100 MG TABLET PO SCH (20:26)
[2018-08-01] MEDS: TRAZODONE 50 MG TABLET PO SCH (20:26)
[2018-08-01] MEDS: SIMVASTATIN 20 MG TABLET PO SCH (20:26)
[2018-08-02 04:54] VITALS: BP 159/76
--- NOTE | 2018-08-02 05:53 | NUR ---
No changes t/o shift. Patient vital signs stable. Wound care provided. Good urine output. Safety and comfort measures maintained t/o shift. All meds given as ordered. All needs met.
[2018-08-02] MEDS: BLOOD SUGAR DIAGNOSTIC 1 EACH STRIP VI SCH ×4 (06:37→20:30)
--- NOTE | 2018-08-02 07:10 | NUR ---
Received patient awake in bed laying comfortably with no SOB noted at this time, No c/o pain at this time, safety nad comfort provided at all times, call light within reached. Will continue to monitor.
[2018-08-02] MEDS: busPIRone 5 MG TABLET PO SCH ×3 (08:22→20:25)
[2018-08-02] MEDS: GABAPENTIN 100 MG CAPSULE PO SCH ×3 (08:22→17:59)
[2018-08-02] MEDS: CULTURELLE CAPSULE PO SCH ×2 (08:23→20:23)
[2018-08-02] MEDS: QUETIAPINE FUMARATE 25 MG TABLET PO SCH ×3 (08:23→20:23)
[2018-08-02] MEDS: AMLODIPINE 5 MG TABLET PO SCH ×2 (08:23→20:24)
[2018-08-02] MEDS: ASCORBIC ACID 500 MG TABLET PO SCH (08:23)
[2018-08-02] MEDS: ESCITALOPRAM OXALATE 10 MG TABLET PO SCH (08:23)
[2018-08-02] MEDS: ZINC SULFATE 220 MG CAPSULE PO SCH (08:23)
[2018-08-02] MEDS: GLIMEPIRIDE 2 MG TABLET PO SCH (08:23)
[2018-08-02] MEDS: CEFEPIME HCL 1 G in IV DEXTROSE 5% 50 ML IV SCH (08:24)
[2018-08-02] MEDS: MULTIVIT, IRON, MIN NO. 8, FA TABLET PO SCH (08:24)
[2018-08-02] MEDS: FAMOTIDINE 20 MG TABLET PO SCH ×2 (08:32→17:59)
[2018-08-02] MEDS: Z GUARD REMEDY PASTE 57 GM TUBE TOP SCH ×2 (08:34→20:26)
[2018-08-02] MEDS: CLONIDINE HCL 0.1 MG TABLET PO PRN (09:54)
[2018-08-02 11:04] VITALS: BP 163/87
--- NOTE | 2018-08-02 13:53 | NUR ---
CLINICAL PHARMACY NOTE:VANCOMYCIN S: To continue vancomycin dosing on 47y/o male patient for diabetic foot ulcer O: temp 98.1 BUN 44 (07/31) Scr 4.2 (ARF - 07/31 ) WBC 5.8 (07/31) Vanco random level today with am labs: 16.1 ht 167.6 cm wt 77 kg Plan Will continue to dose by levels due to poor renal function. Per random, will dose another 1gm today at 1400. Will check labs in am and order next random accordingly. Will follow
[2018-08-02] MEDS ORDERED: VANCOMYCIN IV 1 G in PREMIXED 0 EACH IV ONE (14:00)
--- NOTE | 2018-08-02 14:00 | NUR ---
order of vanco 200ml IV once, given at 1400 as ordered
[2018-08-02 15:00] VITALS: BP 146/79
--- NOTE | 2018-08-02 19:06 | NUR ---
Patient awake in bed laying comfortably with no SOB noted at this time, No c/o pain at this time, safety nad comfort provided at all times, call light within reached. bed alarm on. Will continue to monitor.
[2018-08-02 20:00] VITALS: BP 153/75
[2018-08-02] MEDS: DOCUSATE SODIUM 100 MG CAPSULE PO SCH (20:23)
[2018-08-02] MEDS: TRAZODONE 50 MG TABLET PO SCH (20:23)
[2018-08-02] MEDS: ALLOPURINOL 100 MG TABLET PO SCH (20:23)
[2018-08-02] MEDS: TERAZOSIN 5 MG CAPSULE PO SCH (20:24)
[2018-08-02] MEDS: SIMVASTATIN 20 MG TABLET PO SCH (20:24)
[2018-08-02] MEDS: INSULIN REGULAR, HUMAN 300 UNIT/3 ML VIAL SQ PRN (20:33)
--- NOTE | 2018-08-02 22:15 | NUR ---
Patient is alert oriented x 1-2, confused, but follows direction. Pt. denies any pain or discomfort. IV site in right forearm 20 gauge saline lock. IV site is patent and intact. Dressing intact and clean. Bed in lowest position, 2 side rails up, call light within reach, bed alarm on. Comfort measures provided. Will continue to monitor.
[2018-08-03 05:11] VITALS: BP 153/83
--- NOTE | 2018-08-03 05:58 | NUR ---
Patient slept intermittently throughout shift. Occasionally had outbursts with yelling and flinging arms around. No signs of acute distress noted. No signs of pain or SOB. All medications given as ordered. Safety measures given.
[2018-08-03] MEDS: BLOOD SUGAR DIAGNOSTIC 1 EACH STRIP VI SCH ×4 (06:39→20:23)
--- NOTE | 2018-08-03 07:15 | NUR ---
Received patient in bed in sitting position with no SOB noted at this time . No c/o pain at this time. IV intact and patient , bed in low position and 2 side rails up. safety and comfort provided at all times. will continue to monitor and continue treatment.
[2018-08-03 07:16] LABS: BASOPHILS % (AUTO) 0.5 % (0.0-2.0); EOSINOPHILS # (AUTO) 0.1 K/uL (0.0-0.7); EOSINOPHILS % (AUTO) 2.9 % (0.0-7.0); HEMATOCRIT 25.2 % (36.7-47.1); HEMOGLOBIN 8.6 g/dL (12.5-16.3); LYMPHOCYTES # (AUTO) 1.3 K/uL (20.0-40.0); MEAN CORPUSCULAR HEMOGLOBIN 28.4 uug (23.8-33.4); MEAN CORPUSCULAR HGB CONC 34 g/dL (32.5-36.3); MEAN CORPUSCULAR VOLUME 83.6 fL (73.0-96.2); MONOCYTES # (AUTO) 0.4 K/uL (2.0-10.0); NEUTROPHILS # (AUTO) 3.1 K/uL (1.8-8.9); NEUTROPHILS % (AUTO) 62.6 % (38.5-71.5); PLATELET COUNT (AUTO) 304 K/uL (152-348); RED BLOOD CELL COUNT(AUTO) 3.01 MIL/uL (4.06-5.63)
[2018-08-03 07:30] LABS: BILIRUBIN,TOTAL 0.3 mg/dL (0.2-1.0); CREATININE 3.8 mg/dL (0.6-1.3); MAGNESIUM 1.9 mg/dL (1.8-2.4); PHOSPHOROUS 4.3 mg/dL (2.5-4.9); POTASSIUM 5.4 mmol/L (3.5-5.1); TOTAL PROTEIN, SERUM 6.3 g/dL (6.4-8.2)
[2018-08-03] MEDS: busPIRone 5 MG TABLET PO SCH ×3 (07:59→20:15)
[2018-08-03] MEDS: QUETIAPINE FUMARATE 25 MG TABLET PO SCH ×3 (07:59→20:16)
[2018-08-03] MEDS: GLIMEPIRIDE 2 MG TABLET PO SCH (07:59)
[2018-08-03] MEDS: MULTIVIT, IRON, MIN NO. 8, FA TABLET PO SCH (08:00)
[2018-08-03] MEDS: AMLODIPINE 5 MG TABLET PO SCH ×2 (08:00→20:16)
[2018-08-03] MEDS: ZINC SULFATE 220 MG CAPSULE PO SCH (08:00)
[2018-08-03] MEDS: CULTURELLE CAPSULE PO SCH ×2 (08:00→20:16)
[2018-08-03] MEDS: FAMOTIDINE 20 MG TABLET PO SCH ×2 (08:00→17:02)
[2018-08-03] MEDS: ESCITALOPRAM OXALATE 10 MG TABLET PO SCH (08:01)
[2018-08-03] MEDS: ASCORBIC ACID 500 MG TABLET PO SCH (08:01)
[2018-08-03] MEDS: Z GUARD REMEDY PASTE 57 GM TUBE TOP SCH ×2 (08:01→20:17)
[2018-08-03] MEDS: GABAPENTIN 100 MG CAPSULE PO SCH ×3 (08:01→17:02)
[2018-08-03] MEDS: CEFEPIME HCL 1 G in IV DEXTROSE 5% 50 ML IV SCH (08:50)
[2018-08-03 11:00] VITALS: BP 159/90
--- NOTE | 2018-08-03 14:06 | NUR ---
CLINICAL PHARMACY NOTE:VANCOMYCIN S: To continue vancomycin dosing on 47y/o male patient for diabetic foot ulcer O: temp 98.6 BUN 41 Scr 3.8 (ARF) WBC 5.0 Vanco random level: 16.1 (On 08/02 with am labs) ht 167.6 cm wt 77 kg Plan Since patient received vanco 1gm IVPB x1 on 08/02 at 1400, no dose shall be due today. Will continue to dose by levels due to poor renal function. Will check random level in am (with am labs) for further dosing. Will follow
[2018-08-03 15:29] VITALS: BP 155/87
--- NOTE | 2018-08-03 18:27 | NUR ---
patient in bed comfortably with HOB elevated no SOB noted at this time . No c/o pain at this time. IV intact and patient, saline lock , bed in low position and 2 side rails up . safety and comfort provided at all times. Will continue to monitor and continue treatment.
--- NOTE | 2018-08-03 19:30 | NUR ---
RECEIVED PATIENT LYING IN BED. A/O X3 AND CONFUSED DUE TO PSYCHOSIS. NO SIGNS OF ACUTE DISTRESS. SAFETY AND COMFORT MEASURES PROVIDED. BED IN LOWEST POSITION, SIDE RAILS UP X2, CALL LIGHT WITHIN REACH, BED ALARM ON.
[2018-08-03 20:07] VITALS: BP 164/87
[2018-08-03] MEDS: DOCUSATE SODIUM 100 MG CAPSULE PO SCH (20:15)
[2018-08-03] MEDS: TRAZODONE 50 MG TABLET PO SCH (20:15)
[2018-08-03] MEDS: SIMVASTATIN 20 MG TABLET PO SCH (20:16)
[2018-08-03] MEDS: ALLOPURINOL 100 MG TABLET PO SCH (20:16)
[2018-08-03] MEDS: TERAZOSIN 5 MG CAPSULE PO SCH (21:43)
--- NOTE | 2018-08-03 21:45 | NUR ---
ATTEMPTED TO ADMINISTER 4 CAPSULES OF HYTRIN TO PATIENT. PATIENT IS LEGALLY BLIND AND THREW THE CAPSULES TO HIS BED AND 2 RECOVERED. REMAINING 2 CAPSULES REQUESTED TO NURSING [employer]ISH MEDICAL INTERPRETER TO ADMINISTER. WILL ADMINISTER WHEN RECEIVED.
[2018-08-03] MEDS ORDERED: TERAZOSIN 5 MG CAPSULE ONE (23:26)
--- NOTE | 2018-08-04 05:41 | NUR ---
PATIENT SHOWS NO SIGNS OF ACUTE DISTRESS NOTED. IV INTACT. SAFETY AND COMFORT MEASURES PROVIDED. PRESCRIBED MEDICATION GIVEN AND TOLERATED WELL. WILL ENDORSE ACCORDINGLY TO ONCOMING NURSE FOR CONTINUITY OF CARE.
[2018-08-04 05:52] VITALS: BP 156/84
[2018-08-04] MEDS: BLOOD SUGAR DIAGNOSTIC 1 EACH STRIP VI SCH ×4 (06:43→20:41)
--- NOTE | 2018-08-04 07:15 | NUR ---
RECEIVED PATIENT ON BED, AWAKE, AAOX2, HAS PERIODS OF CONFUSION AND YELLING.NO ACUTE DISTRESS NOTED, IV ACCESS ON RIGHT FA #22 INTACT AND PATENT, SALINE LOCKED. PATIENT IS LEGALLY BLIND, MINIMUM ASSISTANCE WITH ADLS. BLOOD SUGAR THIS AM 80, NO INSULIN COVERAGE NEEDED. NO COMPLAINTS OF PAIN/DISCOMFORT AT THIS TIME, COMFORT MEASURES PROVIDED. WILL CONTINUE TO MONITOR CLOSELY.
[2018-08-04] MEDS: CULTURELLE CAPSULE PO SCH ×2 (08:40→20:31)
[2018-08-04] MEDS: ESCITALOPRAM OXALATE 10 MG TABLET PO SCH (08:40)
[2018-08-04] MEDS: busPIRone 5 MG TABLET PO SCH ×3 (08:41→20:28)
[2018-08-04] MEDS: GLIMEPIRIDE 2 MG TABLET PO SCH (08:41)
[2018-08-04] MEDS: ZINC SULFATE 220 MG CAPSULE PO SCH (08:41)
[2018-08-04] MEDS: QUETIAPINE FUMARATE 25 MG TABLET PO SCH ×3 (08:41→20:32)
[2018-08-04] MEDS: MULTIVIT, IRON, MIN NO. 8, FA TABLET PO SCH (08:41)
[2018-08-04] MEDS: FAMOTIDINE 20 MG TABLET PO SCH ×2 (08:41→17:38)
[2018-08-04] MEDS: GABAPENTIN 100 MG CAPSULE PO SCH ×3 (08:41→17:38)
[2018-08-04] MEDS: ASCORBIC ACID 500 MG TABLET PO SCH (08:41)
[2018-08-04] MEDS: AMLODIPINE 5 MG TABLET PO SCH ×2 (08:44→20:31)
[2018-08-04] MEDS: Z GUARD REMEDY PASTE 57 GM TUBE TOP SCH ×2 (08:44→20:32)
[2018-08-04] MEDS: CEFEPIME HCL 1 G in IV DEXTROSE 5% 50 ML IV SCH (08:44)
[2018-08-04] MEDS ORDERED: VANCOMYCIN IV 1,250 MG in IV DEXTROSE 5% 500 ML IV ONE (10:00)
[2018-08-04] MEDS: CLONIDINE HCL 0.1 MG TABLET PO PRN (11:32)
[2018-08-04 11:45] VITALS: BP 170/91
--- NOTE | 2018-08-04 13:25 | NUR ---
PER PAOLA RIOS MD, ORDERED REPEAT BMP, IF K NORMAL PATIENT MAY BE DISCHARGED, ORDERS NOTED AND CARRIED OUT.
[2018-08-04 14:00] VITALS: BP 152/83
[2018-08-04 14:23] LABS: CREATININE 3.8 mg/dL (0.6-1.3); POTASSIUM 5.6 mmol/L (3.5-5.1)
--- NOTE | 2018-08-04 14:30 | NUR ---
CLINICAL PHARMACY NOTE:VANCOMYCIN S: To continue vancomycin dosing on 47y/o male patient for diabetic foot ulcer O: temp 98 BUN 41 (08/03) Scr 3.8 (08/03) (ARF) WBC 5.0 (08/03) Vanco random level: 8.8 today with am labs ht 167.6 cm wt 77 kg Plan Per random level, dosed another 1250mg vancomycin x1 at 1000. Next random ordered for tomorrow am. Will check level in am and redose as needed. Will follow
[2018-08-04 15:45] VITALS: BP 156/83
--- NOTE | 2018-08-04 16:45 | NUR ---
OFFERED TO CHANGE WOUND DRESSING ON RIGHT FOOT, PATIENT REFUSED X 2, STARTED TO BECOME AGITATED, WILL OFFER AGAIN LATER.
--- NOTE | 2018-08-04 16:50 | NUR ---
CALLED AND PAGED DR. SHEIKH INSURANCE VERIFICATION SPECIALIST MD TO NOTIFY THAT POTASSIUM LEVELS ARE NOT WITHIN NORMAL LEVELS, 5.6, AWAITING CALL BACK
--- NOTE | 2018-08-04 18:19 | NUR ---
PATIENT NOTED TO BE INCREASINGLY AGITATED, M/B HITTING BED. INFORMED DR. IBARRA, RECEIVED ORDERS FOR ZYPREXA 3MG IM ONCE. ORDERS NOTED AND CARRIED OUT.
[2018-08-04] MEDS ORDERED: OLANZAPINE 10 MG VIAL IM ONE (18:30)
--- NOTE | 2018-08-04 18:42 | NUR ---
ADMINISTERED ZYPREXA 3MG IM ON THE LEFT DELTOID, WELL TOLERATED. PATIENT IN STABLE CONDITION WILL CONTINUE TO MONITOR CLOSELY.
--- NOTE | 2018-08-04 19:37 | NUR ---
Received patient asleep in bed, calm and not in distress at the moment. Noted was given Zyprexa IM around 1800 by day shift nurse. Potassium today was elevated at 5.6, per report day shift nurse paged implementation consultant Foil Wrapper at 1730 for possible orders regarding this still no call back. Made a follow up call and spoke with Dr. Bonds who stated no new orders for this patient. Will continue to monitor the patient. Bed in low position, locked, side rails up x2 for safety.
[2018-08-04] MEDS: DOCUSATE SODIUM 100 MG CAPSULE PO SCH (20:27)
[2018-08-04] MEDS: ALLOPURINOL 100 MG TABLET PO SCH (20:31)
[2018-08-04] MEDS: TRAZODONE 50 MG TABLET PO SCH (20:32)
[2018-08-04] MEDS: SIMVASTATIN 20 MG TABLET PO SCH (20:32)
[2018-08-04 20:38] VITALS: BP 140/74
[2018-08-04] MEDS: TERAZOSIN 5 MG CAPSULE PO SCH (21:47)
[2018-08-05 05:20] VITALS: BP 143/86
[2018-08-05] MEDS: BLOOD SUGAR DIAGNOSTIC 1 EACH STRIP VI SCH ×4 (06:45→20:34)
--- NOTE | 2018-08-05 06:45 | NUR ---
Blood sugar this morning is 66mg/dl, patient asymptomatic, given orange juice.
[2018-08-05 07:04] LABS: BASOPHILS % (AUTO) 0.6 % (0.0-2.0); EOSINOPHILS # (AUTO) 0.2 K/uL (0.0-0.7); EOSINOPHILS % (AUTO) 3.9 % (0.0-7.0); HEMATOCRIT 25.2 % (36.7-47.1); HEMOGLOBIN 8.6 g/dL (12.5-16.3); LYMPHOCYTES # (AUTO) 1.3 K/uL (20.0-40.0); MEAN CORPUSCULAR HEMOGLOBIN 28.4 uug (23.8-33.4); MEAN CORPUSCULAR HGB CONC 34 g/dL (32.5-36.3); MEAN CORPUSCULAR VOLUME 83.7 fL (73.0-96.2); MONOCYTES # (AUTO) 0.4 K/uL (2.0-10.0); MONOCYTES % (AUTO) 8.8 % (0.0-11.0); NEUTROPHILS # (AUTO) 2.8 K/uL (1.8-8.9); NEUTROPHILS % (AUTO) 59.7 % (38.5-71.5); PLATELET COUNT (AUTO) 323 K/uL (152-348); RED BLOOD CELL COUNT(AUTO) 3.02 MIL/uL (4.06-5.63); WHITE BLOOD COUNT (AUTO) 4.7 K/uL (3.6-10.2)
[2018-08-05 07:25] LABS: CREATININE 4.1 mg/dL (0.6-1.3); PHOSPHOROUS 4.5 mg/dL (2.5-4.9)
[2018-08-05 07:51] LABS: POTASSIUM 6.8 mmol/L (3.5-5.1)
--- NOTE | 2018-08-05 07:59 | NUR ---
Patient noted resting in bed, no complaints of pain at this time, no signs of distress noted, call light in reach, bed locked and in lowest position, potassium level of 6.9 reported [facility] peritoneal dialysis registered nurse doctor, awaiting a call back and new orders
[2018-08-05] MEDS: GABAPENTIN 100 MG CAPSULE PO SCH ×3 (08:04→17:06)
[2018-08-05] MEDS: MULTIVIT, IRON, MIN NO. 8, FA TABLET PO SCH (08:04)
[2018-08-05] MEDS: QUETIAPINE FUMARATE 25 MG TABLET PO SCH ×3 (08:04→20:35)
[2018-08-05] MEDS: FAMOTIDINE 20 MG TABLET PO SCH ×2 (08:04→17:06)
[2018-08-05] MEDS: GLIMEPIRIDE 2 MG TABLET PO SCH (08:04)
[2018-08-05] MEDS: ZINC SULFATE 220 MG CAPSULE PO SCH (08:05)
[2018-08-05] MEDS: ESCITALOPRAM OXALATE 10 MG TABLET PO SCH (08:05)
[2018-08-05] MEDS: busPIRone 5 MG TABLET PO SCH ×3 (08:05→20:36)
[2018-08-05] MEDS: ASCORBIC ACID 500 MG TABLET PO SCH (08:05)
[2018-08-05] MEDS: CULTURELLE CAPSULE PO SCH ×2 (08:05→20:35)
[2018-08-05] MEDS: CEFEPIME HCL 1 G in IV DEXTROSE 5% 50 ML IV SCH (08:07)
[2018-08-05] MEDS: AMLODIPINE 5 MG TABLET PO SCH ×2 (08:10→20:36)
[2018-08-05] MEDS: Z GUARD REMEDY PASTE 57 GM TUBE TOP SCH ×2 (08:18→20:34)
[2018-08-05] MEDS ORDERED: FUROSEMIDE 40 MG/4 ML VIAL IV ONE (08:45)
[2018-08-05] MEDS ORDERED: SODIUM POLYSTYRENE SULFONATE 15 G/60 ML LIQUID UDC PO ONE (08:45)
[2018-08-05] MEDS ORDERED: SODIUM POLYSTYRENE SULF POWDER 15 GM UDC PO ONE (09:30)
--- NOTE | 2018-08-05 09:40 | NUR ---
CLINICAL PHARMACY NOTE:VANCOMYCIN S: To continue vancomycin dosing on 47y/o male patient for diabetic foot ulcer O: temp 99.5 BUN 43 Scr 4.1 (ARF) WBC 4.7 Vanco random level: 17.7 today with am labs ht 167.6 cm wt 77 kg Plan Per random level, dosed another 1000mg vancomycin x1 at 1000. Next random ordered for tomorrow at 1500. Will check level and redose as needed. Will follow
[2018-08-05] MEDS ORDERED: VANCOMYCIN IV 1 G in PREMIXED 0 EACH IV ONE (10:00)
[2018-08-05 12:41] VITALS: BP 149/82
[2018-08-05 14:19] LABS: CREATININE 4.1 mg/dL (0.6-1.3); POTASSIUM 5.4 mmol/L (3.5-5.1)
[2018-08-05 15:34] VITALS: BP 154/81
--- NOTE | 2018-08-05 19:30 | NUR ---
Received pt in awake, in no acute signs of distress. Legally blind. No c/o pain at this time. Bed alarm on. Will continue to monitor.
--- NOTE | 2018-08-05 19:47 | NUR ---
1630 blood sugar noted at 56, orange juice and dinner tray given, blood sugar retested and noted at 102
[2018-08-05 20:16] VITALS: BP 159/80
[2018-08-05] MEDS: ALLOPURINOL 100 MG TABLET PO SCH (20:35)
[2018-08-05] MEDS: TERAZOSIN 5 MG CAPSULE PO SCH (20:35)
[2018-08-05] MEDS: DOCUSATE SODIUM 100 MG CAPSULE PO SCH (20:35)
[2018-08-05] MEDS: SIMVASTATIN 20 MG TABLET PO SCH (20:35)
[2018-08-05] MEDS: TRAZODONE 50 MG TABLET PO SCH (20:36)
[2018-08-06 04:45] VITALS: BP 165/92
[2018-08-06] MEDS: CLONIDINE HCL 0.1 MG TABLET PO PRN (05:12)
--- NOTE | 2018-08-06 05:53 | NUR ---
Pt in bed, in no acute signs of distress, No c/o pain. Wound dressing done on on R foot as ordered. Tolerated well. Safety measures rendered.
[2018-08-06] MEDS: BLOOD SUGAR DIAGNOSTIC 1 EACH STRIP VI SCH ×4 (06:36→20:21)
--- NOTE | 2018-08-06 07:20 | NUR ---
PATIENT ALERT AND AWAKE IN BED WITH HOB ELEVATED. NO C/O PAIN AT THIS TIME, NO SOB NOTED. WILL CONTINUE TO MONITOR. IV INTACT. SAFETY AND COMFORT PROVIDED AT ALL TIMES. WILL CONTINUE TO MONITOR AND CONTINUE TREATMENT.
[2018-08-06] MEDS: MULTIVIT, IRON, MIN NO. 8, FA TABLET PO SCH (08:16)
[2018-08-06] MEDS: GLIMEPIRIDE 2 MG TABLET PO SCH (08:16)
[2018-08-06] MEDS: FAMOTIDINE 20 MG TABLET PO SCH ×2 (08:16→17:24)
[2018-08-06] MEDS: QUETIAPINE FUMARATE 25 MG TABLET PO SCH ×3 (08:16→20:12)
[2018-08-06] MEDS: ZINC SULFATE 220 MG CAPSULE PO SCH (08:16)
[2018-08-06] MEDS: busPIRone 5 MG TABLET PO SCH ×3 (08:16→20:12)
[2018-08-06] MEDS: GABAPENTIN 100 MG CAPSULE PO SCH ×3 (08:16→17:24)
[2018-08-06] MEDS: CULTURELLE CAPSULE PO SCH ×2 (08:16→20:12)
[2018-08-06] MEDS: ASCORBIC ACID 500 MG TABLET PO SCH (08:16)
[2018-08-06] MEDS: AMLODIPINE 5 MG TABLET PO SCH ×2 (08:17→20:12)
[2018-08-06] MEDS: ESCITALOPRAM OXALATE 10 MG TABLET PO SCH (08:17)
[2018-08-06] MEDS: Z GUARD REMEDY PASTE 57 GM TUBE TOP SCH ×2 (08:23→20:13)
[2018-08-06] MEDS: CEFEPIME HCL 1 G in IV DEXTROSE 5% 50 ML IV SCH (09:50)
[2018-08-06 12:12] VITALS: BP 156/85
[2018-08-06] MEDS: INSULIN REGULAR, HUMAN 300 UNIT/3 ML VIAL SQ PRN (12:37)
[2018-08-06 15:28] VITALS: BP 142/82
--- NOTE | 2018-08-06 15:49 | NUR ---
CLINICAL PHARMACY NOTE:VANCOMYCIN S: To continue vancomycin dosing on 47y/o male patient for diabetic foot ulcer O: temp 98.6 BUN 43 (08/05) Scr 4.1 (08/05) (ARF) WBC 4.7 (08/05) Vanco random level: 17.8 on 08/06 at 1500 ht 167.6 cm wt 77 kg Plan Per random level, dosed another 1000mg vancomycin x1 at 1600 today. Next random ordered for tomorrow at 1900. Will check level and re-dose as needed. Will follow
[2018-08-06] MEDS ORDERED: VANCOMYCIN IV 1 G in PREMIXED 0 EACH IV ONE (16:00)
--- NOTE | 2018-08-06 18:32 | NUR ---
PATIENT ALERT AND AWAKE IN BED WITH HOB ELEVATED. COOPERATIVE. NO C/O PAIN AT THIS TIME, NO SOB NOTED. WILL CONTINUE TO MONITOR. IV INTACT. PROVIDE ALL NEEDS . SAFETY AND COMFORT PROVIDED AT ALL TIMES. WILL CONTINUE TO MONITOR AND CONTINUE TREATMENT.
--- NOTE | 2018-08-06 19:30 | NUR ---
Received patient resting in bed, easily to arouse. no signs of acute distress noted. No complaints of pain or SOB. Heplock on the right forearm is intact and patent. Dressing on the right foot is clean and intact. Safety measures initiated. Bed is low and locked, call light within reach. Will continue to monitor.
[2018-08-06] MEDS: SIMVASTATIN 20 MG TABLET PO SCH (20:12)
[2018-08-06] MEDS: DOCUSATE SODIUM 100 MG CAPSULE PO SCH (20:12)
[2018-08-06] MEDS: ALLOPURINOL 100 MG TABLET PO SCH (20:12)
[2018-08-06] MEDS: TERAZOSIN 5 MG CAPSULE PO SCH (20:12)
[2018-08-06] MEDS: TRAZODONE 50 MG TABLET PO SCH (20:12)
[2018-08-06 21:14] VITALS: BP 140/80
[2018-08-07 04:29] VITALS: BP 154/81
--- NOTE | 2018-08-07 06:35 | NUR ---
Patient slept well throughout shift. Finished dinner during my shift. All medications given as ordered and tolerated well. Vitals WNL. Dressing change done. Safety measures given.
[2018-08-07 06:38] LABS: BASOPHILS % (AUTO) 0.6 % (0.0-2.0); EOSINOPHILS # (AUTO) 0.2 K/uL (0.0-0.7); EOSINOPHILS % (AUTO) 3.8 % (0.0-7.0); HEMATOCRIT 27.3 % (36.7-47.1); HEMOGLOBIN 9.2 g/dL (12.5-16.3); LYMPHOCYTES # (AUTO) 1.1 K/uL (20.0-40.0); LYMPHOCYTES % (AUTO) 22.7 % (20.5-51.5); MEAN CORPUSCULAR HEMOGLOBIN 28.6 uug (23.8-33.4); MEAN CORPUSCULAR HGB CONC 34 g/dL (32.5-36.3); MEAN CORPUSCULAR VOLUME 84.4 fL (73.0-96.2); MONOCYTES # (AUTO) 0.4 K/uL (2.0-10.0); MONOCYTES % (AUTO) 8.3 % (0.0-11.0); NEUTROPHILS # (AUTO) 3.1 K/uL (1.8-8.9); NEUTROPHILS % (AUTO) 64.6 % (38.5-71.5); PLATELET COUNT (AUTO) 317 K/uL (152-348); RED BLOOD CELL COUNT(AUTO) 3.23 MIL/uL (4.06-5.63); WHITE BLOOD COUNT (AUTO) 4.8 K/uL (3.6-10.2)
[2018-08-07 06:50] LABS: MAGNESIUM 1.8 mg/dL (1.8-2.4); PHOSPHOROUS 5.1 mg/dL (2.5-4.9); POTASSIUM 5.3 mmol/L (3.5-5.1)
--- NOTE | 2018-08-07 07:24 | NUR ---
Received patient resting in bed, No SOB noted. No c/o pain or SOB. Heplock on the right forearm is intact and patent. Safety measures initiated. Call light within reach. Will continue to monitor.
[2018-08-07] MEDS: BLOOD SUGAR DIAGNOSTIC 1 EACH STRIP VI SCH ×4 (07:36→21:06)
[2018-08-07] MEDS: ESCITALOPRAM OXALATE 10 MG TABLET PO SCH (08:18)
[2018-08-07] MEDS: GLIMEPIRIDE 2 MG TABLET PO SCH (08:18)
[2018-08-07] MEDS: AMLODIPINE 5 MG TABLET PO SCH ×2 (08:18→20:57)
[2018-08-07] MEDS: FAMOTIDINE 20 MG TABLET PO SCH ×2 (08:18→17:00)
[2018-08-07] MEDS: busPIRone 5 MG TABLET PO SCH ×3 (08:18→20:55)
[2018-08-07] MEDS: ASCORBIC ACID 500 MG TABLET PO SCH (08:18)
[2018-08-07] MEDS: GABAPENTIN 100 MG CAPSULE PO SCH ×3 (08:18→17:00)
[2018-08-07] MEDS: MULTIVIT, IRON, MIN NO. 8, FA TABLET PO SCH (08:21)
[2018-08-07] MEDS: ZINC SULFATE 220 MG CAPSULE PO SCH (08:21)
[2018-08-07] MEDS: CULTURELLE CAPSULE PO SCH ×2 (08:21→20:56)
[2018-08-07] MEDS: QUETIAPINE FUMARATE 25 MG TABLET PO SCH ×3 (08:21→20:58)
[2018-08-07] MEDS: Z GUARD REMEDY PASTE 57 GM TUBE TOP SCH ×2 (08:30→20:59)
[2018-08-07] MEDS: CEFEPIME HCL 1 G in IV DEXTROSE 5% 50 ML IV SCH (09:11)
[2018-08-07] MEDS: CLONIDINE HCL 0.1 MG TABLET PO PRN (10:16)
[2018-08-07 11:28] VITALS: BP 161/87
[2018-08-07] MEDS: INSULIN REGULAR, HUMAN 300 UNIT/3 ML VIAL SQ PRN (12:29)
--- NOTE | 2018-08-07 13:01 | NUR ---
CLINICAL PHARMACY NOTE:VANCOMYCIN S: To continue vancomycin dosing on 47y/o male patient for diabetic foot ulcer O: temp 98 BUN 45 Scr 4.8 (ARF) WBC 4.8 Vanco random level: pending (ordered for today at 1900) ht 167.6 cm wt 77 kg Plan Due to elevated srcr, will continue to dose by random level. Next random ordered for today at 1900. Will check level and re-dose as needed. Will follow
[2018-08-07] MEDS ORDERED: SODIUM POLYSTYRENE SULFONATE 15 G/60 ML LIQUID UDC PO ONE (13:30)
[2018-08-07 15:38] VITALS: BP 147/79
--- NOTE | 2018-08-07 15:40 | NUR ---
PATIENT WENT TO [facility] FOR MRI TO R/O OSTEOMYELITIS
--- NOTE | 2018-08-07 18:00 | NUR ---
PATIENT RETURN FROM MRI. FAIR CONDITION. STARTED EATING HIS DINNER.
--- NOTE | 2018-08-07 18:24 | NUR ---
PATIENT ALERT AND AWAKE IN BED WITH HOB ELEVATED AND EATING HIS DINNER, , NO SOB NOTED AT THIS TIME. WILL CONTINUE TO MONITOR. IV RFA INTACT . SAFETY AND COMFORT PROVIDED AT ALL TIMES. WILL CONTINUE TO MONITOR AND WILL CONTINUE TREATMENT PLAN.
[2018-08-07 20:00] VITALS: BP 148/83
[2018-08-07] MEDS: SIMVASTATIN 20 MG TABLET PO SCH (20:55)
[2018-08-07] MEDS: TRAZODONE 50 MG TABLET PO SCH (20:55)
[2018-08-07] MEDS: DOCUSATE SODIUM 100 MG CAPSULE PO SCH (20:55)
[2018-08-07] MEDS: ALLOPURINOL 100 MG TABLET PO SCH (20:56)
[2018-08-07] MEDS: TERAZOSIN 5 MG CAPSULE PO SCH (20:56)
--- NOTE | 2018-08-07 22:00 | NUR ---
Pt. is alert oriented x2-3, pt. denies any pain or discomfort. IV site in right forearm 22 gauge heplock, intact, and patent. Pt.'s dressing is clean and intact. Bed in lowest position, 2 side rails up, lowest position, call light within reach. Will continue to monitor.
[2018-08-08 05:11] VITALS: BP 153/88
[2018-08-08] MEDS: BLOOD SUGAR DIAGNOSTIC 1 EACH STRIP VI SCH ×4 (06:32→20:44)
--- NOTE | 2018-08-08 07:00 | NUR ---
Pt. is alert oriented x2-3 denying any pain or discomfort. Pt. has IV site in right forearm 22 gauge hep lock, patent, and intact. Pt. had one bowel movement. gave pt. orange juice. Blood sugar checked 109 mg/dl at 0630. Bed in lowest position, locked, 2 side rails up, locked, call light within reach.
[2018-08-08 07:36] LABS: CREATININE 3.9 mg/dL (0.6-1.3); MAGNESIUM 1.9 mg/dL (1.8-2.4); PHOSPHOROUS 4.7 mg/dL (2.5-4.9); POTASSIUM 5.4 mmol/L (3.5-5.1)
[2018-08-08] MEDS: GLIMEPIRIDE 2 MG TABLET PO SCH (07:47)
[2018-08-08] MEDS: busPIRone 5 MG TABLET PO SCH ×3 (07:47→20:44)
[2018-08-08] MEDS: QUETIAPINE FUMARATE 25 MG TABLET PO SCH ×3 (07:47→20:47)
[2018-08-08 07:58] LABS: BASOPHILS % (AUTO) 0.5 % (0.0-2.0); EOSINOPHILS # (AUTO) 0.2 K/uL (0.0-0.7); EOSINOPHILS % (AUTO) 3.3 % (0.0-7.0); HEMATOCRIT 27.3 % (36.7-47.1); HEMOGLOBIN 9.2 g/dL (12.5-16.3); LYMPHOCYTES # (AUTO) 1.2 K/uL (20.0-40.0); LYMPHOCYTES % (AUTO) 21.5 % (20.5-51.5); MEAN CORPUSCULAR HEMOGLOBIN 28.5 uug (23.8-33.4); MEAN CORPUSCULAR HGB CONC 34 g/dL (32.5-36.3); MEAN CORPUSCULAR VOLUME 84.5 fL (73.0-96.2); MONOCYTES # (AUTO) 0.4 K/uL (2.0-10.0); MONOCYTES % (AUTO) 7.2 % (0.0-11.0); NEUTROPHILS # (AUTO) 3.8 K/uL (1.8-8.9); NEUTROPHILS % (AUTO) 67.5 % (38.5-71.5); PLATELET COUNT (AUTO) 309 K/uL (152-348); RED BLOOD CELL COUNT(AUTO) 3.24 MIL/uL (4.06-5.63); WHITE BLOOD COUNT (AUTO) 5.7 K/uL (3.6-10.2)
[2018-08-08] MEDS: ESCITALOPRAM OXALATE 10 MG TABLET PO SCH (08:00)
[2018-08-08] MEDS: MULTIVIT, IRON, MIN NO. 8, FA TABLET PO SCH (08:00)
[2018-08-08] MEDS: FERROUS SULFATE 325 MG TABEC PO SCH (08:00)
[2018-08-08] MEDS: CULTURELLE CAPSULE PO SCH ×2 (08:00→20:45)
[2018-08-08] MEDS: FAMOTIDINE 20 MG TABLET PO SCH ×2 (08:01→16:09)
[2018-08-08] MEDS: ASCORBIC ACID 500 MG TABLET PO SCH (08:01)
[2018-08-08] MEDS: AMLODIPINE 5 MG TABLET PO SCH ×2 (08:01→20:47)
[2018-08-08] MEDS: ZINC SULFATE 220 MG CAPSULE PO SCH (08:01)
[2018-08-08] MEDS: GABAPENTIN 100 MG CAPSULE PO SCH ×3 (08:01→16:09)
[2018-08-08] MEDS: CEFEPIME HCL 1 G in IV DEXTROSE 5% 50 ML IV SCH (09:00)
[2018-08-08] MEDS: Z GUARD REMEDY PASTE 57 GM TUBE TOP SCH ×2 (09:06→20:50)
[2018-08-08] MEDS: INSULIN REGULAR, HUMAN 300 UNIT/3 ML VIAL SQ PRN ×2 (10:34→16:10)
[2018-08-08 10:58] VITALS: BP 154/89
[2018-08-08] MEDS ORDERED: SODIUM POLYSTYRENE SULFONATE 15 G/60 ML LIQUID UDC PO ONE (12:30)
[2018-08-08] MEDS ORDERED: SODIUM POLYSTYRENE SULF POWDER 15 GM UDC PO ONE (13:00)
--- NOTE | 2018-08-08 13:03 | NUR ---
CLINICAL PHARMACY NOTE:VANCOMYCIN S: To continue vancomycin dosing on 47 y/o male patient for diabetic foot ulcer O: temp 98.4 BUN 43 Scr 3.9 (ARF) WBC 4.8 Vanco random level: 17.9 (today with am labs) ht 167.6 cm wt 77 kg Plan Due to elevated srcr, will continue to dose by random level. Since vanco random level is 17.9 today, will give vanco 1gm IVPB x1 today at 1400. Pharmacy shall review renal function & decide when to order next random level for further dosing. Will follow
[2018-08-08] MEDS ORDERED: VANCOMYCIN IV 1 G in PREMIXED 0 EACH IV ONE (14:00)
[2018-08-08 14:36] VITALS: BP 156/86
[2018-08-08 20:00] VITALS: BP 166/89
[2018-08-08] MEDS: DOCUSATE SODIUM 100 MG CAPSULE PO SCH (20:45)
[2018-08-08] MEDS: ALLOPURINOL 100 MG TABLET PO SCH (20:46)
[2018-08-08] MEDS: TERAZOSIN 5 MG CAPSULE PO SCH (20:46)
[2018-08-08] MEDS: SIMVASTATIN 20 MG TABLET PO SCH (20:47)
[2018-08-08] MEDS: TRAZODONE 50 MG TABLET PO SCH (20:47)
[2018-08-09 06:39] LABS: BASOPHILS % (AUTO) 0.4 % (0.0-2.0); EOSINOPHILS # (AUTO) 0.2 K/uL (0.0-0.7); EOSINOPHILS % (AUTO) 3.9 % (0.0-7.0); HEMATOCRIT 25.9 % (36.7-47.1); HEMOGLOBIN 8.9 g/dL (12.5-16.3); LYMPHOCYTES # (AUTO) 1.4 K/uL (20.0-40.0); LYMPHOCYTES % (AUTO) 27.8 % (20.5-51.5); MEAN CORPUSCULAR HEMOGLOBIN 28.8 uug (23.8-33.4); MEAN CORPUSCULAR HGB CONC 34 g/dL (32.5-36.3); MEAN CORPUSCULAR VOLUME 83.9 fL (73.0-96.2); MONOCYTES # (AUTO) 0.4 K/uL (2.0-10.0); MONOCYTES % (AUTO) 7.1 % (0.0-11.0); NEUTROPHILS # (AUTO) 3.1 K/uL (1.8-8.9); NEUTROPHILS % (AUTO) 60.8 % (38.5-71.5); PLATELET COUNT (AUTO) 300 K/uL (152-348); RED BLOOD CELL COUNT(AUTO) 3.08 MIL/uL (4.06-5.63); WHITE BLOOD COUNT (AUTO) 5.1 K/uL (3.6-10.2)
[2018-08-09 06:50] LABS: BILIRUBIN,TOTAL 0.4 mg/dL (0.2-1.0); CREATININE 3.7 mg/dL (0.6-1.3); MAGNESIUM 1.7 mg/dL (1.8-2.4); PHOSPHOROUS 4.9 mg/dL (2.5-4.9); POTASSIUM 4.7 mmol/L (3.5-5.1); TOTAL PROTEIN, SERUM 6.2 g/dL (6.4-8.2)
[2018-08-09] MEDS: BLOOD SUGAR DIAGNOSTIC 1 EACH STRIP VI SCH ×4 (07:05→20:14)
--- NOTE | 2018-08-09 07:34 | NUR ---
Patient slept intermittently throughout the night. No complaints made. No distress noted. IV site in left hand patent and intact. Attended all needs. Ensured safety and comfort.
[2018-08-09] MEDS: GLIMEPIRIDE 2 MG TABLET PO SCH (08:38)
[2018-08-09] MEDS: CULTURELLE CAPSULE PO SCH ×2 (08:38→20:08)
[2018-08-09] MEDS: ESCITALOPRAM OXALATE 10 MG TABLET PO SCH (08:38)
[2018-08-09] MEDS: FAMOTIDINE 20 MG TABLET PO SCH ×2 (08:38→16:12)
[2018-08-09] MEDS: FERROUS SULFATE 325 MG TABEC PO SCH (08:39)
[2018-08-09] MEDS: busPIRone 5 MG TABLET PO SCH ×3 (08:39→20:07)
[2018-08-09] MEDS: ASCORBIC ACID 500 MG TABLET PO SCH (08:39)
[2018-08-09] MEDS: QUETIAPINE FUMARATE 25 MG TABLET PO SCH ×3 (08:39→20:07)
[2018-08-09] MEDS: GABAPENTIN 100 MG CAPSULE PO SCH ×3 (08:39→16:12)
[2018-08-09] MEDS: MULTIVIT, IRON, MIN NO. 8, FA TABLET PO SCH (08:39)
[2018-08-09] MEDS: ZINC SULFATE 220 MG CAPSULE PO SCH (08:39)
[2018-08-09] MEDS: Z GUARD REMEDY PASTE 57 GM TUBE TOP SCH ×2 (08:40→20:09)
[2018-08-09] MEDS: AMLODIPINE 5 MG TABLET PO SCH ×2 (08:45→20:07)
[2018-08-09] MEDS: CLONIDINE HCL 0.1 MG TABLET PO PRN (08:49)
[2018-08-09] MEDS: INSULIN REGULAR, HUMAN 300 UNIT/3 ML VIAL SQ PRN ×3 (08:59→16:23)
[2018-08-09] MEDS: CEFEPIME HCL 1 G in IV DEXTROSE 5% 50 ML IV SCH (08:59)
--- NOTE | 2018-08-09 10:50 | NUR ---
Received pt. in bed, comfortable. A/OX2 verbally responsive and able to make simple needs known. All due medications given and tolerated well. Noted RFA PIV pulled out, started new PIV on LW 22G x 1 attempt, pt tolerated procedure well. No s/sx of hypo/hyperglycemia. Rt. foot dressing change as ordered. All pt. needs attended and met promptly. Safety measures in place. Call light and all frequently used items within pt. reach.
[2018-08-09 11:40] VITALS: BP 174/92
--- NOTE | 2018-08-09 12:10 | NUR ---
CLINICAL PHARMACY NOTE:VANCOMYCIN S: To continue vancomycin dosing on 47 y/o male patient for diabetic foot ulcer O: temp 97.6 BUN 41 Scr 3.7 (ARF) WBC 5.1 ht 167.6 cm wt 77 kg Plan Due to elevated srcr, will continue to dose by random level. Patient received vanco 1gm IVPB x1 on 08/08 at 1400. Next random level on 08/10 with am lab. Pharmacy will review the random level in am for further dosing. Will follow
[2018-08-09 15:41] VITALS: BP 134/86
--- NOTE | 2018-08-09 18:12 | NUR ---
End of shift note: No significant change during this shift. All needs attended and met promptly. No new skin condition noted. Safety measures in placed. Bed in low position, brake on, side rails up x2 as an enabler. Call light and all frequently used items within pt. reach. Will endorse to next shift accordingly
--- NOTE | 2018-08-09 19:30 | NUR ---
Received patient awake and alert. No signs of acute distress noted. No complaints of pain or SOB, patient on room air saturating ay 98%. Heplock on the left wrist is intact and patent. Dressing on the right foot is coming off, will replace. Safety measures initiated. Bed is low and locked, call light within reach, bed alarm on. Will continue to monitor.
[2018-08-09 20:00] VITALS: BP 132/76
[2018-08-09] MEDS: TERAZOSIN 5 MG CAPSULE PO SCH (20:07)
[2018-08-09] MEDS: TRAZODONE 50 MG TABLET PO SCH (20:07)
[2018-08-09] MEDS: ALLOPURINOL 100 MG TABLET PO SCH (20:07)
[2018-08-09] MEDS: DOCUSATE SODIUM 100 MG CAPSULE PO SCH (20:08)
[2018-08-09] MEDS: SIMVASTATIN 20 MG TABLET PO SCH (20:08)
[2018-08-10 03:12] VITALS: BP 169/90
[2018-08-10] MEDS: CLONIDINE HCL 0.1 MG TABLET PO PRN ×2 (04:30→08:54)
--- NOTE | 2018-08-10 06:03 | NUR ---
patient slept intermittently throughout night. occasional yelling. no signs of acute distress noted. No complaints of pain or SOB. All medications given as ordered and tolerated well. Noted BP to be 169/90 around 4:20AM, administered PRN catapres. Safety measures given.
[2018-08-10] MEDS: BLOOD SUGAR DIAGNOSTIC 1 EACH STRIP VI SCH ×2 (06:31→11:24)
--- NOTE | 2018-08-10 08:29 | NUR ---
CLINICAL PHARMACY NOTE:VANCOMYCIN S: To continue vancomycin dosing on 47 y/o male patient for diabetic foot ulcer O: temp 98 BUN 41 (08/09) Scr 3.7(08/09,ARF) WBC 5.1(08/09) ht 167.6 cm wt 77 kg Vancomycin random today at 0600: 9.1 Plan Due to elevated srcr, will continue to dose by random level(no HD yet). Since random level is under 20, will give 1gx1 today(scheduled to give at 0930) and draw random for further dosing(ordered for 08/12 at 0600). Will follow
[2018-08-10] MEDS: busPIRone 5 MG TABLET PO SCH ×2 (08:43→12:34)
[2018-08-10] MEDS: GABAPENTIN 100 MG CAPSULE PO SCH ×3 (08:43→16:18)
[2018-08-10] MEDS: FERROUS SULFATE 325 MG TABEC PO SCH (08:45)
[2018-08-10] MEDS: MULTIVIT, IRON, MIN NO. 8, FA TABLET PO SCH (08:45)
[2018-08-10] MEDS: ASCORBIC ACID 500 MG TABLET PO SCH (08:45)
[2018-08-10] MEDS: QUETIAPINE FUMARATE 25 MG TABLET PO SCH ×2 (08:45→12:34)
[2018-08-10] MEDS: FAMOTIDINE 20 MG TABLET PO SCH ×2 (08:45→16:18)
[2018-08-10] MEDS: ESCITALOPRAM OXALATE 10 MG TABLET PO SCH (08:46)
[2018-08-10] MEDS: CULTURELLE CAPSULE PO SCH (08:46)
[2018-08-10] MEDS: ZINC SULFATE 220 MG CAPSULE PO SCH (08:49)
[2018-08-10] MEDS: AMLODIPINE 5 MG TABLET PO SCH (08:49)
[2018-08-10] MEDS: GLIMEPIRIDE 2 MG TABLET PO SCH (08:50)
[2018-08-10] MEDS: Z GUARD REMEDY PASTE 57 GM TUBE TOP SCH (08:59)
[2018-08-10] MEDS: CEFEPIME HCL 1 G in IV DEXTROSE 5% 50 ML IV SCH (08:59)
[2018-08-10] MEDS ORDERED: VANCOMYCIN IV 1 G in PREMIXED 0 EACH IV ONE (09:30)
[2018-08-10] MEDS: INSULIN REGULAR, HUMAN 300 UNIT/3 ML VIAL SQ PRN (11:29)
[2018-08-10 11:55] VITALS: BP 152/86
--- NOTE | 2018-08-10 12:01 | NUR ---
Patient continue ATB vancomycin and cefepime for wound right foot ulcer. no adverse reaction. Continue blood sugar monitoring with sliding scale protocol. change wound dressing, healing well noted. no behavioral problem noted. will continue monitor
[2018-08-10 16:15] VITALS: BP 141/65
--- NOTE | 2018-08-10 16:42 | NUR ---
Patient discharge to [facility] in stable condition around 430pm. Endorse report to RN fuel system maintenance supervisor Veena and EMT staff. no complaint voiced. right foot DM Ulcer picture taken. no behavioral problem noted.
[2018-08-11 08:14] VITALS: BP 106/55
--- NOTE | 2018-08-11 09:07 | NUR ---
INFORMATION SENT: FACESHEET, PROGRESS NOTES 08/10, 24 HRS REPORT, DISCHARGE SUMMARY. INSURANCE NAME:FRANCISCA [employer] [facility] / [facility] FAX NUMBER: [phone] / [phone] FAX SENT
== END 2018-08-10 16:30 | DRG 197 ==
LOC: ER 16:14 → MEDSURG3 19:31
PROVIDERS: ADMIT Internal Medicine Nephrology; ATTEND Internal Medicine
PROC: 0JBQ0ZZ Excision of Right Foot Subcutaneous Tissue and Fascia, Open Approach (ICD-10-PCS; principal; 2018-07-17)
PROC: 30233N1 Transfusion of Nonautologous Red Blood Cells into Peripheral Vein, Percutaneous Approach (ICD-10-PCS; 2018-07-20)
DX: E11.52 Type 2 diabetes mellitus with diabetic peripheral angiopathy with gangrene (principal); N17.0 Acute kidney failure with tubular necrosis; G92 Toxic encephalopathy; E43 Unspecified severe protein-calorie malnutrition; I96 Gangrene, not elsewhere classified; E11.42 Type 2 diabetes mellitus with diabetic polyneuropathy; E11.22 Type 2 diabetes mellitus with diabetic chronic kidney disease; L03.115 Cellulitis of right lower limb; F03.90 Unspecified dementia, unspecified severity, without behavioral disturbance, psychotic disturbance, mood disturbance, and anxiety; D62 Acute posthemorrhagic anemia; E11.621 Type 2 diabetes mellitus with foot ulcer; L97.511 Non-pressure chronic ulcer of other part of right foot limited to breakdown of skin; N18.5 Chronic kidney disease, stage 5; Z89.512 Acquired absence of left leg below knee; R23.4 Changes in skin texture; Z79.4 Long term (current) use of insulin; Z68.27 Body mass index [BMI] 27.0-27.9, adult; K21.9 Gastro-esophageal reflux disease without esophagitis; Z86.14 Personal history of Methicillin resistant Staphylococcus aureus infection; H54.7 Unspecified visual loss; I12.9 Hypertensive chronic kidney disease with stage 1 through stage 4 chronic kidney disease, or unspecified chronic kidney disease; B95.2 Enterococcus as the cause of diseases classified elsewhere; B96.89 Other specified bacterial agents as the cause of diseases classified elsewhere; E66.01 Morbid (severe) obesity due to excess calories; D50.9 Iron deficiency anemia, unspecified; F39 Unspecified mood [affective] disorder; B95.62 Methicillin resistant Staphylococcus aureus infection as the cause of diseases classified elsewhere; Z75.1 Person awaiting admission to adequate facility elsewhere; E87.5 Hyperkalemia; R19.5 Other fecal abnormalities
CPT/HCPCS: 36415; 73630; 73700; 73721; 76770; 82378; 83550; 83735; 84100; 84156; 84300; 85025; 85651; 86850; 86900; 86901; 86920; 87040; 87070; 87077; 93005; 97110; 97530; A4663; C1758; G0378; J0360; J0692; J0885; J1815; J1940; J2060; J2358; J2543; J2916; J3370; J3490; J7030; J7040; J7050; J7060; J8499; P9016-BL; P9021